=== PATIENT | male | born 1950 | race Caucasian/White ===

== ENCOUNTER 2018-06-05 15:38 | Inpatient (IN) | payer MEDICARE ==
[2018-06-05 16:11] LABS: % BASOPHILS 0.2 % (0.0-2.0); % EOSINOPHILS 1.8 % (0.0-5.0); % LYMPHOCYTES 13.1 % (20.0-50.0); % MONOCYTES 5.4 % (2.0-10.0); % NEUTROPHILS 79.5 % (40.0-80.0); EOSINOPHILE ABSOLUTE 0.1 Th/cmm (0.1-0.4); HEMATOCRIT 42.7 % (41.0-60); HEMOGLOBIN 14.2 gm/dL (12-16); MEAN CELL VOLUME 85.7 fl (80-99); MEAN CORPUSCULAR HEMOGLOBIN 28.4 pg (27.0-31.0); MEAN CORPUSCULAR HGB CONC 33.1 pg (28.0-36.0); MONOCYTE ABSOLUTE 0.4 Th/cmm (0.3-1.0); NEUTROPHILE ABSOLUTE 6.4 Th/cmm (1.8-8.0); PLATELET COUNT 178 Th/cmm (150-400); RED BLOOD COUNT 4.99 Mil/cmm (3.80-5.80); RED CELL DISTRIBUTION WIDTH 14.3 % (11.5-20.0); WHITE BLOOD COUNT 7.9 Th/cmm (4.8-10.8)
[2018-06-05 16:25] LABS: ALB/GLOB RATIO 1.1 (1.0-1.8); ALBUMIN 3.4 gm/dL (4.2-5.5); ANION GAP 11.5 (7.0-16.0); BILIRUBIN,TOTAL 0.4 mg/dL (0.3-1.0); CARBON DIOXIDE 28.8 mEq/L (21.0-31.0); CREATININE - SERUM 1.8 mg/dL (0.7-1.3); GFR AFRICAN-AMERICAN 48.8 ml/min (>90); GFR NON AFRICAN-AMERICAN 40.3 ml/min; MAGNESIUM 2.4 mg/dL (1.9-2.7); PHOSPHOROUS 4.7 mg/dL (2.5-5.0); POTASSIUM SERUM 5.3 mEq/L (3.5-5.1); TOTAL PROTEIN,SERUM 6.5 gm/dL (6.0-8.3)
[2018-06-05] MEDS ORDERED: Lactated Ringer 1,000 ML IV ONE (17:08)
[2018-06-05 17:48] LABS: URINE SOURCE CLEAN C
[2018-06-05 17:51] LABS: URINE BILIRUBIN NEGATIVE (NEGATIVE); URINE BLOOD SMALL (NEGATIVE); URINE GLUCOSE (UA) 100 mg/dL (NEGATIVE); URINE KETONE NEGATIVE (NEGATIVE); URINE LEUKOCYTE ESTERASE NEGATIVE (NEGATIVE); URINE MICROSCOPIC INDICATED? YES; URINE NITRATE NEGATIVE (NEGATIVE); URINE PROTEIN >=300 mg/dL (NEGATIVE); URINE UROBILINOGEN 0.2 E.U./dL (0.2 - 1.0)
[2018-06-05 18:01] LABS: URINE COLOR YELLOW
[2018-06-05 18:02] LABS: URINE CLARITY CLEAR (CLEAR)
[2018-06-05 18:27] LABS: URINE BACTERIA FEW /hpf (NONE SEEN); URINE COARSE GRANULAR CAST 0-2 /lpf (NONE SEEN); URINE EPITHELIAL CELLS FEW /lpf (FEW); URINE WBC 0-2 /hpf (0-5)
[2018-06-05 18:51] LABS: AMPHETAMINE URINE NEGATIVE (NEGATIVE); BARBITURATES URINE NEGATIVE (NEGATIVE); BENZODIAZEPINES QUAL URINE NEGATIVE (NEGATIVE); CANNABINOID THC NEGATIVE (NEGATIVE); COCAINE METABOLITE QUAL URINE NEGATIVE (NEGATIVE); METHADONE URINE NEGATIVE (NEGATIVE); METHAMPHETAMINES QUAL URINE NEGATIVE (NEGATIVE); OPIATES (MORPHINE) QUAL. URINE NEGATIVE (NEGATIVE); PHENCYCLIDINE (PCP) URINE NEGATIVE (NEGATIVE); TRICYCLICS (TCA) QUAL. URINE NEGATIVE (NEGATIVE)
--- NOTE | 2018-06-05 19:56 | ED Physician Chart ---
ED Chief Complaint/HPI - Patient Information Date Seen:: 06/05/18 Time Seen:: 16:10 Chief Complaint:: abnormal labs History of Present Illness:: sent here for abnormal labs Patient has BLE redness present. Allergies:: Allergies Allergy/AdvReac Type Severity Reaction Status Date / Time No Known Allergies Allergy Verified 06/05/18 16:10 Vitals:: Vital Signs - 8 hr 06/05/18 06/05/18 06/05/18 16:10 16:13 16:43 Temp 98.3 F 98.5 F 98.5 F HR 74 76 76 RR 19 18 18 BP 213/102 164/80 164/80 O2 Sat % 96 96 96 Historian:: Patient Review:: Nurse's Note Reviewed, Transfer documents Reviewed ED Review of Systems - Review of Systems General/Constitutional: No fever, No chills, No weight loss, No weakness, No diaphoresis, No edema, No loss of appetite Skin: Other (BLE cellulitis with pustules on the pretibial area of the LLE) Head: No headache, No light-headedness Eyes: No loss of vision, No pain, No diplopia ENT: No earache, No nasal drainage, No sore throat, No tinnitus Neck: No neck pain, No swelling, No thyromegaly, No stiffness, No mass noted Cardio Vascular: No chest pain, No palpitations, No PND, No orthopnea, No edema Pulmonary: No SOB, No cough, No sputum, No wheezing GI: No nausea, No vomiting, No diarrhea, No pain, No melena, No hematochezia, No constipation, No hematemesis G/U: No dysuria, No frequency, No hematuria Musculoskeletal: No bone or joint pain, No back pain, No muscle pain Endocrine: No polyuria, No polydipsia Psychiatric: No prior psych history, No depression, No anxiety, No suicidal ideation Hematopoietic: No bruising, No lymphadenopathy Allergic/Immuno: No urticaria, No angioedema Neurological: No syncope, No focal symptoms, No weakness, No paresthesia, No headache, No seizure, No dizziness, No confusion, No vertigo ED Past Medical History - Past Medical History Obtainable: No Past Medical History: DM, CAD, Other (BPH; renal insufficiency) Surgical History: other (s/p amputation of both great toes) Family Medical History - Family Member Mother History Unknown: Yes ED Physical Exam - Physical Examination General/Constitutional: Awake, Alert Other Gen/Cons comments:: overweight Head: Atraumatic Eyes: Lids, conjuctiva normal, PERRL, EOMI Skin: Nl inspection ENMT: External ears, nose nl Neck: Nontender, No nuchal rigidity, No stridor Respiratory: Nl effort/Exclusion, Clear to Auscultation, No Wheeze/Rhonchi/Rales Cardio Vascular: RRR, No murmur, gallop, rubs, NL S1 S2 GI: No tenderness/rebounding/guarding, No organomegaly, No hernia, Normal BS's, Nondistended, No mass/bruits, No McBurney tenderness : No CVA tenderness Other Extremities comments:: surgical absence of both great toes. BLE cellulitis with pustules on the LLE. 2+ pitting edema. Neuro/Psych: Alert/oriented Misc: Normal back ED Labs/Radiology/EKG Results - Lab Results Results: Laboratory Tests 06/05/18 06/05/18 06/05/18 16:00 16:00 16:00 WBC 7.9 RBC 4.99 Hgb 14.2 Hct 42.7 MCV 85.7 MCH 28.4 MCHC Differential 33.1 RDW 14.3 Plt Count 178 MPV 7.0 Neutrophils % 79.5 Lymphocytes % 13.1 L Monocytes % 5.4 Eosinophils % 1.8 Basophils % 0.2 Sodium 139 Potassium 5.3 H Chloride 104 Carbon Dioxide 28.8 Anion Gap 11.5 BUN 64 H Creatinine 1.8 H Est GFR ( Amer) 48.8 Est GFR (Non-Af Amer) 40.3 BUN/Creatinine Ratio 35.6 Glucose 218 H Calcium 9.0 Phosphorus 4.7 Magnesium 2.4 Total Bilirubin 0.4 AST 12 L ALT 12 Alkaline Phosphatase 93 Ammonia 38 Total Protein 6.5 Albumin 3.4 L Globulin 3.1 Albumin/Globulin Ratio 1.1 Urine Source Urine Color Urine Clarity Urine pH Ur Specific [place] Urine Protein Urine Glucose (UA) Urine Ketones Urine Blood Urine Nitrate Urine Bilirubin Urine Urobilinogen Ur Leukocyte Esterase Urine RBC Urine WBC Ur Epithelial Cells Urine Bacteria Coarse Granular Casts Urine Opiates Screen Urine Methadone Screen Ur Barbiturates Screen Ur Tricyclics Screen Ur Phencyclidine Scrn Amphetamines Screen U Methamphetamines Scrn U Benzodiazepines Scrn U Cocaine Metab Screen U Cannabinoids Screen 06/05/18 06/05/18 17:30 17:30 WBC RBC Hgb Hct MCV MCH MCHC Differential RDW Plt Count MPV Neutrophils % Lymphocytes % Monocytes % Eosinophils % Basophils % Sodium Potassium Chloride Carbon Dioxide Anion Gap BUN Creatinine Est GFR ( Amer) Est GFR (Non-Af Amer) BUN/Creatinine Ratio Glucose Calcium Phosphorus Magnesium Total Bilirubin AST ALT Alkaline Phosphatase Ammonia Total Protein Albumin Globulin Albumin/Globulin Ratio Urine Source CLEAN C Urine Color YELLOW Urine Clarity CLEAR Urine pH 6.0 Ur Specific [place] 1.025 Urine Protein >=300 Urine Glucose (UA) 100 H Urine Ketones NEGATIVE Urine Blood SMALL H Urine Nitrate NEGATIVE Urine Bilirubin NEGATIVE Urine Urobilinogen 0.2 Ur Leukocyte Esterase NEGATIVE Urine RBC 2-5 H Urine WBC 0-2 Ur Epithelial Cells FEW Urine Bacteria FEW Coarse Granular Casts 0-2 H Urine Opiates Screen NEGATIVE Urine Methadone Screen NEGATIVE Ur Barbiturates Screen NEGATIVE Ur Tricyclics Screen NEGATIVE Ur Phencyclidine Scrn NEGATIVE Amphetamines Screen NEGATIVE U Methamphetamines Scrn NEGATIVE U Benzodiazepines Scrn NEGATIVE U Cocaine Metab Screen NEGATIVE U Cannabinoids Screen NEGATIVE ED Assessment - Assessment General Assessment: presented case to Dr. Wells who will admit the patient to med/surg. ED Septic Shock - . Is Septic Shock (SBP<90, OR Lactate>4 mmol\L) present?: No - <6hrs of presentation: Vital Signs: Vital Signs - 8 hr 06/05/18 06/05/18 06/05/18 16:10 16:13 16:43 Temp 98.3 F 98.5 F 98.5 F HR 74 76 76 RR 19 18 18 BP 213/102 164/80 164/80 O2 Sat % 96 96 96 ED Reassessment (Disposition) - Reassessment Reassessment Condition:: Improved - Diagnosis Diagnosis:: BLE cellulitis with pustules on the LLE. Diabetes mellitus. Renal insufficiency. - Patient Disposition Discharge/Transfer:: Acute Care w/in this hosp Admitted to:: Med/Surg Condition at Disposition:: Stable, Improved
[2018-06-05] MEDS ORDERED: Sodium Chloride 0.9% 1,000 ML IV ONE (20:53)
[2018-06-05] MEDS: methylPREDNISolone SS 40 mg Vial IVP SCH (21:49)
[2018-06-05] MEDS: INSULIN ASPART SLIDING SCALE 100 UNITS/ML UNIT SUBQ SCH (21:49)
[2018-06-05] MEDS ORDERED: Piperacillin Sodium/Tazobact 3.375 gm Vial IV ONE (23:44)
[2018-06-06 04:18] VITALS: BP 172/67
[2018-06-06 05:36] LABS: HEMATOCRIT 45.1 % (41.0-60); HEMOGLOBIN 14.7 gm/dL (12-16); LYMPHOCYTE ABSOLUTE 0.6 Th/cmm (1.5-3.0); MEAN CELL VOLUME 85.8 fl (80-99); MEAN CORPUSCULAR HGB CONC 32.6 pg (28.0-36.0); MEAN PLATELET VOLUME 7.6 fl; NEUTROPHILE ABSOLUTE 8.1 Th/cmm (1.8-8.0); PLATELET COUNT 160 Th/cmm (150-400); RED BLOOD COUNT 5.25 Mil/cmm (3.80-5.80); WHITE BLOOD COUNT 8.7 Th/cmm (4.8-10.8)
[2018-06-06 06:01] LABS: ALBUMIN 3.4 gm/dL (4.2-5.5); ANION GAP 10.9 (7.0-16.0); BILIRUBIN,TOTAL 0.5 mg/dL (0.3-1.0); CALCIUM SERUM 9.1 mg/dL (8.6-10.3); CARBON DIOXIDE 26.2 mEq/L (21.0-31.0); CREATININE - SERUM 1.6 mg/dL (0.7-1.3); GFR AFRICAN-AMERICAN 55.9 ml/min (>90); GFR NON AFRICAN-AMERICAN 46.2 ml/min; POTASSIUM SERUM 5.1 mEq/L (3.5-5.1); TOTAL PROTEIN,SERUM 6.8 gm/dL (6.0-8.3)
[2018-06-06] MEDS ORDERED: Piperacillin Sodium/Tazobact 3.375 gm Vial IV ONE (06:08)
[2018-06-06 06:16] LABS: BAND NEUTROPHILE 0 % (0-10); BASOPHIL 0 % (0-3); EOSINOPHIL 1 % (0-5); LYMPHOCYTE 5 % (20-50); MONOCYTE 2 % (2-10); NEUTROPHILS 92 % (40-80)
[2018-06-06] MEDS: INSULIN ASPART SLIDING SCALE 100 UNITS/ML UNIT SUBQ SCH ×4 (08:02→21:07)
[2018-06-06] MEDS: Vancomycin HCl 1.5 GM in Sodium Chloride 0.9% 500 ML IV SCH (08:41)
[2018-06-06] MEDS: methylPREDNISolone SS 40 mg Vial IVP SCH (08:41)
--- NOTE | 2018-06-06 11:10 | General Progress Note ---
Subjective - Review of Systems Service Date: 06/06/18 Subjective: Cellulitis Objective - Results Result Diagrams: 06/06/18 04:43 06/06/18 04:43 Recent Labs: Laboratory Last Values WBC 8.7 Th/cmm (4.8-10.8) 06/06/18 04:43 RBC 5.25 Mil/cmm (3.80-5.80) 06/06/18 04:43 Hgb 14.7 gm/dL (12-16) 06/06/18 04:43 Hct 45.1 % (41.0-60) 06/06/18 04:43 MCV 85.8 fl (80-99) 06/06/18 04:43 MCH 28.0 pg (27.0-31.0) 06/06/18 04:43 MCHC Differential 32.6 pg (28.0-36.0) 06/06/18 04:43 RDW 14.0 % (11.5-20.0) 06/06/18 04:43 Plt Count 160 Th/cmm (150-400) 06/06/18 04:43 MPV 7.6 fl 06/06/18 04:43 Add Manual Diff YES 06/06/18 04:43 Neutrophils % 79.5 % (40.0-80.0) 06/05/18 16:00 Band Neutrophils % 0 % (0-10) 06/06/18 04:43 Lymphocytes % 13.1 % (20.0-50.0) L 06/05/18 16:00 Monocytes % 5.4 % (2.0-10.0) 06/05/18 16:00 Eosinophils % 1.8 % (0.0-5.0) 06/05/18 16:00 Basophils % 0.2 % (0.0-2.0) 06/05/18 16:00 Neutrophils (Manual) 92 % (40-80) H 06/06/18 04:43 Lymphocytes 5 % (20-50) L 06/06/18 04:43 Monocytes 2 % (2-10) 06/06/18 04:43 Eosinophils 1 % (0-5) 06/06/18 04:43 Basophils 0 % (0-3) 06/06/18 04:43 Sodium 137 mEq/L (136-145) 06/06/18 04:43 Potassium 5.1 mEq/L (3.5-5.1) 06/06/18 04:43 Chloride 105 mEq/L (98-107) 06/06/18 04:43 Carbon Dioxide 26.2 mEq/L (21.0-31.0) 06/06/18 04:43 Anion Gap 10.9 (7.0-16.0) 06/06/18 04:43 BUN 58 mg/dL (7-25) H 06/06/18 04:43 Creatinine 1.6 mg/dL (0.7-1.3) H 06/06/18 04:43 Est GFR ( Amer) 55.9 ml/min (>90) 06/06/18 04:43 Est GFR (Non-Af Amer) 46.2 ml/min 06/06/18 04:43 BUN/Creatinine Ratio 36.3 06/06/18 04:43 Glucose 247 mg/dL (70-105) H 06/06/18 04:43 POC Glucose 254 MG/DL (70 - 105) H 06/06/18 06:11 Calcium 9.1 mg/dL (8.6-10.3) 06/06/18 04:43 Phosphorus 4.7 mg/dL (2.5-5.0) 06/05/18 16:00 Magnesium 2.4 mg/dL (1.9-2.7) 06/05/18 16:00 Total Bilirubin 0.5 mg/dL (0.3-1.0) 06/06/18 04:43 AST 12 U/L (13-39) L 06/06/18 04:43 ALT 13 U/L (7-52) 06/06/18 04:43 Alkaline Phosphatase 97 U/L (34-104) 06/06/18 04:43 Ammonia 38 umol/L (16-53) 06/05/18 16:00 Total Protein 6.8 gm/dL (6.0-8.3) 06/06/18 04:43 Albumin 3.4 gm/dL (4.2-5.5) L 06/06/18 04:43 Globulin 3.4 gm/dL 06/06/18 04:43 Albumin/Globulin Ratio 1.0 (1.0-1.8) 06/06/18 04:43 TSH 0.99 uIU/ml (0.34-5.60) 06/06/18 04:43 Urine Source CLEAN C 06/05/18 17:30 Urine Color YELLOW 06/05/18 17:30 Urine Clarity CLEAR (CLEAR) 06/05/18 17:30 Urine pH 6.0 (4.6 - 8.0) 06/05/18 17:30 Ur Specific [place] 1.025 (1.005-1.030) 06/05/18 17:30 Urine Protein >=300 mg/dL (NEGATIVE) 06/05/18 17:30 Urine Glucose (UA) 100 mg/dL (NEGATIVE) H 06/05/18 17:30 Urine Ketones NEGATIVE mg/dL (NEGATIVE) 06/05/18 17:30 Urine Blood SMALL (NEGATIVE) H 06/05/18 17:30 Urine Nitrate NEGATIVE (NEGATIVE) 06/05/18 17:30 Urine Bilirubin NEGATIVE (NEGATIVE) 06/05/18 17:30 Urine Urobilinogen 0.2 E.U./dL (0.2 - 1.0) 06/05/18 17:30 Ur Leukocyte Esterase NEGATIVE (NEGATIVE) 06/05/18 17:30 Urine RBC 2-5 /hpf (0-5) H 06/05/18 17:30 Urine WBC 0-2 /hpf (0-5) 06/05/18 17:30 Ur Epithelial Cells FEW /lpf (FEW) 06/05/18 17:30 Urine Bacteria FEW /hpf (NONE SEEN) 06/05/18 17:30 Coarse Granular Casts 0-2 /lpf (NONE SEEN) H 06/05/18 17:30 Stool Occult Blood POSITIVE (NEGATIVE) H 06/05/18 18:00 Urine Opiates Screen NEGATIVE (NEGATIVE) 06/05/18 17:30 Urine Methadone Screen NEGATIVE (NEGATIVE) 06/05/18 17:30 Ur Barbiturates Screen NEGATIVE (NEGATIVE) 06/05/18 17:30 Ur Tricyclics Screen NEGATIVE (NEGATIVE) 06/05/18 17:30 Ur Phencyclidine Scrn NEGATIVE (NEGATIVE) 06/05/18 17:30 Amphetamines Screen NEGATIVE (NEGATIVE) 06/05/18 17:30 U Methamphetamines Scrn NEGATIVE (NEGATIVE) 06/05/18 17:30 U Benzodiazepines Scrn NEGATIVE (NEGATIVE) 06/05/18 17:30 U Cocaine Metab Screen NEGATIVE (NEGATIVE) 06/05/18 17:30 U Cannabinoids Screen NEGATIVE (NEGATIVE) 06/05/18 17:30 - Physical Exam Vitals and I&O: Vital Signs Temp 97.1 F 06/06/18 07:38 Pulse 75 06/06/18 07:38 Resp 18 06/06/18 07:38 BP 165/68 06/06/18 07:38 Pulse Ox 100 06/06/18 07:38 Intake & Output 06/05/18 06/06/18 06/06/18 18:59 06:59 18:59 Intake Total 1300 Balance 1300 Weight (lbs) 120.202 kg 119.295 kg Intake: Intake, IV Amount 1300 Lactated Ringer 1,000 ml 1000 @ 125 mls/hr IV .Q8H ONE Rx#:[id number] Piperacillin Sodium/ 50 Tazobact 3.375 gm In Sodium Chloride 0.9% 50 ml @ 100 mls/hr IV Q6HR [facility] Rx#:[id number] Vancomycin HCl 1 gm In 250 Sodium Chloride 0.9% 250 ml @ 165 mls/hr IV X1 [facility] Rx#:[id number] Other: Weight Source Estimated Bedscale Active Medications: Current Medications Piperacillin Sod/Tazobactam (Sod 3.375 gm/ Sodium Chloride) 50 mls @ 100 mls/ hr IV Q6HR [facility] Stop: 08/05/18 00:00 Last Admin: 06/06/18 06:12 Dose: 100 mls/hr Vancomycin HCl 1.5 gm/ Sodium (Chloride) 500 mls @ 250 mls/hr IV Q24H [facility] Stop: 08/05/18 08:59 Last Admin: 06/06/18 08:41 Dose: 250 mls/hr Insulin Aspart (Novolog Insulin Sliding Scale) 0 units SUBQ ACHS [facility]; Protocol Stop: 08/04/18 20:59 Last Admin: 06/06/18 08:02 Dose: 7 units Methylprednisolone Sodium Succinate (Solu-Medrol) 62.5 mg IVP Q12HR [facility] Stop: 08/04/18 20:59 Last Admin: 06/06/18 08:41 Dose: 62.5 mg Miscellaneous (Vancomycin Iv Per Pharmacy) 1 ea MC PRN PRN PRN Reason: PROTOCOL Stop: 08/04/18 20:52 General: Alert, Other (confused) HEENT: Atraumatic Neck: Supple Cardiovascular: Regular rate Lungs: Clear to auscultation Abdomen: Bowel sounds, Soft Extremities: Other (Bilateral redness of lower extremities) Neurological: Other (Unstable gait) Skin: Other (Redness of lower extremities) Psych/Mental Status: Other (Patient is confused) Assessment/Plan - Problem List Patient Problems: All Active Problems WEAKNESS WITH ELEVATED NH3 (Acute) - Assessment Assessment: Patient is awake, alert, confused. Dx : Bilateral cellulites, DM, CHF, CAD, PVD , COPD, Obesity. - Plan Plan: Patient is awake, confused, not oriented. He is in IV NS, IV AB, and SNF meds. Will continue to monitor.
[2018-06-06] MEDS ORDERED: Docusate Sodium/Senna Tab PO PRN (11:14)
--- NOTE | 2018-06-06 11:27 | History and Physical ---
History of Present Illness - HPI Chief Complaint: Cellulitis HPI: Patient was send from SNF due to Bilateral cellulitis. 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: Report: No Pertinent Hx GI: Report: No Pertinent Hx Psych: Report: Anxiety, Depression Musculoskeletal: Report: Weakness Rheumatologic: Report: No pertinent Hx Infectious Disease: Report: No Pertinent Hx Renal/: Report: Chronic Renal Insuff Endocrine: Report: Diabetes Dermatology: Report: Cellulitis - Past Surgical History Past Surgical History: No pertinent Hx Family Medical History - Family Member Mother History Unknown: Yes Father History Unknown: Yes Ethnicity: Non- Living Status: Hx Family Diabetes: Yes Social History Smoke: No Alcohol: None Drugs: None Lives: Jail Domestic Violence: Negative - Medications Home Medications: Home Medication Medication Instructions Recorded Type Acetaminophen [Tylenol] 650 mg PO Q4H PRN 06/05/18 History Amlodipine Besylate 5 mg PO DAILY 06/05/18 History Carvedilol [Coreg] 25 mg PO BID 06/05/18 History Dextrose 10% 250 ml IV PRN PRN 06/05/18 History Dextrose [Glucose Gel] 15 gm PO PRN PRN 06/05/18 History Ferrous Sulfate 325 mg PO BID 06/05/18 History Finasteride [Proscar*] 5 mg PO DAILY 06/05/18 History Furosemide [Lasix] 40 mg PO DAILY 06/05/18 History Glucagon,Human Recombinant 1 mg IJ PRN PRN 06/05/18 History [Glucagon Emergency Kit] Hydrochlorothiazide [Hctz*] 25 mg PO DAILY 06/05/18 History Insulin Aspart, Recombinant 0 unit SUBQ AC 06/05/18 History [NovoLOG] Insulin Aspart, Recombinant 0 unit SUBQ HS 06/05/18 History [NovoLOG] Isosorbide Mononitrate 20 mg PO BID 06/05/18 History Multivitamin with Minerals 1 each PO DAILY 06/05/18 History [Myvitalife] Optinex 1 tab PO BID 06/05/18 History Sennosides/Docusate Sodium 1 each PO HS PRN 06/05/18 History [Senna-S Laxative Tablet] Tamsulosin [Flomax] 0.4 mg PO DAILY 06/05/18 History - Allergies Allergies/Adverse Reactions: Allergies Allergy/AdvReac Type Severity Reaction Status Date / Time No Known Allergies Allergy Verified 06/05/18 16:10 Review of Systems - Review of Systems Constitutional: Report: Weakness Eyes: Report: No Significant ENT: Report: No Significant Respiratory: Report: No Significant Cardiovascular: Report: No Significant Gastrointestinal: Report: No Significant Genitourinary: Report: No Significant Musculoskeletal: Report: No Significant Skin: Report: Rash Neurological: Report: Weakness, Incoordination, Confusion Physical Exam - Physical Exam HEENT: Report: Ears Nose Throat within normal limits Neck: Report: Within normal limits Cardiovascular Systems: Report: Regular, Rate and Rhythm Respiratory: Report: Breath Sounds are within normal limits Abdomen: Report: Non-tender to palpation Back: Report: Inspection of back is within normal limits. Extremities: Report: Other (Rednes of both lower extremities.) Skin: Report: No Rashes noted of the skin Neuro/Psych: Report: Disoriented to name time or place, Depressed affect - Lab Results All Lab Results last 24 hours: Laboratory Results - last 24 hr 06/05/18 06/05/18 06/05/18 16:00 16:00 16:00 WBC 7.9 RBC 4.99 Hgb 14.2 Hct 42.7 MCV 85.7 MCH 28.4 MCHC Differential 33.1 RDW 14.3 Plt Count 178 MPV 7.0 Add Manual Diff Neutrophils % 79.5 Band Neutrophils % Lymphocytes % 13.1 L Monocytes % 5.4 Eosinophils % 1.8 Basophils % 0.2 Neutrophils (Manual) Lymphocytes Monocytes Eosinophils Basophils Sodium 139 Potassium 5.3 H Chloride 104 Carbon Dioxide 28.8 Anion Gap 11.5 BUN 64 H Creatinine 1.8 H Est GFR ( Amer) 48.8 Est GFR (Non-Af Amer) 40.3 BUN/Creatinine Ratio 35.6 Glucose 218 H POC Glucose Calcium 9.0 Phosphorus 4.7 Magnesium 2.4 Total Bilirubin 0.4 AST 12 L ALT 12 Alkaline Phosphatase 93 Ammonia 38 Total Protein 6.5 Albumin 3.4 L Globulin 3.1 Albumin/Globulin Ratio 1.1 TSH Urine Source Urine Color Urine Clarity Urine pH Ur Specific [place] Urine Protein Urine Glucose (UA) Urine Ketones Urine Blood Urine Nitrate Urine Bilirubin Urine Urobilinogen Ur Leukocyte Esterase Urine RBC Urine WBC Ur Epithelial Cells Urine Bacteria Coarse Granular Casts Stool Occult Blood Urine Opiates Screen Urine Methadone Screen Ur Barbiturates Screen Ur Tricyclics Screen Ur Phencyclidine Scrn Amphetamines Screen U Methamphetamines Scrn U Benzodiazepines Scrn U Cocaine Metab Screen U Cannabinoids Screen 06/05/18 06/05/18 06/05/18 17:30 17:30 18:00 WBC RBC Hgb Hct MCV MCH MCHC Differential RDW Plt Count MPV Add Manual Diff Neutrophils % Band Neutrophils % Lymphocytes % Monocytes % Eosinophils % Basophils % Neutrophils (Manual) Lymphocytes Monocytes Eosinophils Basophils Sodium Potassium Chloride Carbon Dioxide Anion Gap BUN Creatinine Est GFR ( Amer) Est GFR (Non-Af Amer) BUN/Creatinine Ratio Glucose POC Glucose Calcium Phosphorus Magnesium Total Bilirubin AST ALT Alkaline Phosphatase Ammonia Total Protein Albumin Globulin Albumin/Globulin Ratio TSH Urine Source CLEAN C Urine Color YELLOW Urine Clarity CLEAR Urine pH 6.0 Ur Specific [place] 1.025 Urine Protein >=300 Urine Glucose (UA) 100 H Urine Ketones NEGATIVE Urine Blood SMALL H Urine Nitrate NEGATIVE Urine Bilirubin NEGATIVE Urine Urobilinogen 0.2 Ur Leukocyte Esterase NEGATIVE Urine RBC 2-5 H Urine WBC 0-2 Ur Epithelial Cells FEW Urine Bacteria FEW Coarse Granular Casts 0-2 H Stool Occult Blood POSITIVE H Urine Opiates Screen NEGATIVE Urine Methadone Screen NEGATIVE Ur Barbiturates Screen NEGATIVE Ur Tricyclics Screen NEGATIVE Ur Phencyclidine Scrn NEGATIVE Amphetamines Screen NEGATIVE U Methamphetamines Scrn NEGATIVE U Benzodiazepines Scrn NEGATIVE U Cocaine Metab Screen NEGATIVE U Cannabinoids Screen NEGATIVE 06/06/18 06/06/18 06/06/18 04:43 04:43 04:43 WBC 8.7 RBC 5.25 Hgb 14.7 Hct 45.1 MCV 85.8 MCH 28.0 MCHC Differential 32.6 RDW 14.0 Plt Count 160 MPV 7.6 Add Manual Diff YES Neutrophils % Band Neutrophils % 0 Lymphocytes % Monocytes % Eosinophils % Basophils % Neutrophils (Manual) 92 H Lymphocytes 5 L Monocytes 2 Eosinophils 1 Basophils 0 Sodium 137 Potassium 5.1 Chloride 105 Carbon Dioxide 26.2 Anion Gap 10.9 BUN 58 H Creatinine 1.6 H Est GFR ( Amer) 55.9 Est GFR (Non-Af Amer) 46.2 BUN/Creatinine Ratio 36.3 Glucose 247 H POC Glucose Calcium 9.1 Phosphorus Magnesium Total Bilirubin 0.5 AST 12 L ALT 13 Alkaline Phosphatase 97 Ammonia Total Protein 6.8 Albumin 3.4 L Globulin 3.4 Albumin/Globulin Ratio 1.0 TSH 0.99 Urine Source Urine Color Urine Clarity Urine pH Ur Specific [place] Urine Protein Urine Glucose (UA) Urine Ketones Urine Blood Urine Nitrate Urine Bilirubin Urine Urobilinogen Ur Leukocyte Esterase Urine RBC Urine WBC Ur Epithelial Cells Urine Bacteria Coarse Granular Casts Stool Occult Blood Urine Opiates Screen Urine Methadone Screen Ur Barbiturates Screen Ur Tricyclics Screen Ur Phencyclidine Scrn Amphetamines Screen U Methamphetamines Scrn U Benzodiazepines Scrn U Cocaine Metab Screen U Cannabinoids Screen 06/06/18 06/06/18 06:11 11:12 WBC RBC Hgb Hct MCV MCH MCHC Differential RDW Plt Count MPV Add Manual Diff Neutrophils % Band Neutrophils % Lymphocytes % Monocytes % Eosinophils % Basophils % Neutrophils (Manual) Lymphocytes Monocytes Eosinophils Basophils Sodium Potassium Chloride Carbon Dioxide Anion Gap BUN Creatinine Est GFR ( Amer) Est GFR (Non-Af Amer) BUN/Creatinine Ratio Glucose POC Glucose 254 H 293 H Calcium Phosphorus Magnesium Total Bilirubin AST ALT Alkaline Phosphatase Ammonia Total Protein Albumin Globulin Albumin/Globulin Ratio TSH Urine Source Urine Color Urine Clarity Urine pH Ur Specific [place] Urine Protein Urine Glucose (UA) Urine Ketones Urine Blood Urine Nitrate Urine Bilirubin Urine Urobilinogen Ur Leukocyte Esterase Urine RBC Urine WBC Ur Epithelial Cells Urine Bacteria Coarse Granular Casts Stool Occult Blood Urine Opiates Screen Urine Methadone Screen Ur Barbiturates Screen Ur Tricyclics Screen Ur Phencyclidine Scrn Amphetamines Screen U Methamphetamines Scrn U Benzodiazepines Scrn U Cocaine Metab Screen U Cannabinoids Screen - Assessment Assessment: Patient is awake, alert, confused. Dx : Bilateral cellulites, DM, CHF, CAD, PVD , COPD, Obesity. - Plan Plan: Patient is awake, confused, not oriented. He is in IV NS, IV AB, and SNF meds. Will continue to monitor.
[2018-06-06] MEDS: Multivitamin w/ Minerals Tab PO SCH (12:12)
--- NOTE | 2018-06-06 13:13 | Consultation ---
DATE OF CONSULTATION: 06/06/2018 PSYCHIATRIC CONSULTATION PHYSICIAN REQUESTING CONSULTATION: Dr. Ken Wells. REASON FOR CONSULTATION: Possible depression. HISTORY OF PRESENT ILLNESS: This patient is a 67-year-old male, resident of [facility] in [place]. Information obtained by directly interviewing the patient as well as reviewing the admission papers. The patient has been admitted for cellulitis of bilateral lower extremities and a psychiatric consultation is called to address the issue of the depression. Chart is reviewed. The patient is interviewed. During the interview, the patient is stating that overall he is looking for his pair of shoes and then he states that he wants to head to [place] and to be a psychiatrist. The patient is not making much sense, but the patient is stating that he is trying to cope with the diabetes. 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 PAST PSYCHIATRIC HISTORY: The patient is stating that he never had a reason to see a psychiatrist. MEDICAL HISTORY: The patient is reporting that he has been fighting with the diabetes and hypertension for a while. His father was also a diabetic. SOCIAL HISTORY: The patient is a resident of the [facility] in [place] and the patient is stating that he has been there for more than 4 years. SUBSTANCE ABUSE HISTORY: The patient denies use of any drugs or alcohol. LEGAL PROBLEMS: None at this time. STRENGTHS AND ASSETS: The patient is motivated. MENTAL EXAMINATION: The patient is a 67-year-old moderately obese, superficially cooperative. Eye contact is fair. Mood is noted to be irritable. Affect is constricted. The patient is stating that he is trying to cope with the depression the best he could. The patient's coping skills at this time are noted to be poor at this time. The patient is not suicidal or homicidal. The patient denies any auditory hallucinations, but element of grandiosity is noted. The patient is alert and oriented x 3. No cognitive deficits are noted. DIAGNOSTIC IMPRESSION: Depressive disorder, not otherwise specified. PLAN: To continue the patient with the supportive therapy and encouraged the patient to verbalize the concerns rather than to act out. The patient does not need any psychiatric intervention and antidepressant medications at this time. We will follow the patient up and then decide the need for the medication. Thank you, Dr. Wells for allowing me to participate in the care of the patient. JOB# [id number]
[2018-06-07] MEDS ORDERED: Piperacillin Sodium/Tazobact 3.375 gm Vial IV ONE (02:05)
--- NOTE | 2018-06-07 02:22 | Consultation ---
DATE OF CONSULTATION: AGE: 67 years. SEX: Male. RACE: . HISTORY OF PRESENT ILLNESS: The patient is being admitted because of the cellulitis on the left leg and also swelling of both lower extremities and possibility of fluid overload. In addition to that, the patient does have morbid obesity for quite some time. The patient's height is only 5 feet 8 inches and he weighs 263 pounds. The patient also has other problems which include but not limited to, but I was asked to evaluate his kidney function and problems related to that. On direct questioning, the patient has stated that he has had diabetes for 10+ years. Also, the patient had hypertension for 1-1/2 years. In addition, the patient also has significant obesity, which he knows about and he has not been able to reduce it. The patient apparently had been seen by urologist because the patient is on Proscar, Flomax and other medications and I think he might have been, but he does not know when and obviously he is being treated for enlarged prostate. The patient must have had this renal dysfunction probably secondary to enlargement of prostate could be due to diabetic nephropathy or hypertensive atherosclerosis and nephrosclerosis. The patient does have findings and signs on clinical examination and testing also. On further examination, the patient is conscious, cooperative, alert. The patient's jugular venous pressure is not raised. Chest examination reveals good air entry. The patient has never been a smoker. Denies any significant drinking. Abdomen is rather very large and protuberant. No masses could be felt. Ascites could not be ascertained on clinical examination. The patient has 1+ to 2+ tight edema in both lower extremities. The patient also has cellulitis. The patient is able to mobilize both extremities and sort of denies any pain. LABORATORY DATA: Biochemical data briefly reveals sodium 137, potassium 5.1, chloride 105, CO2 content 26.2, creatinine 1.6, hemoglobin 14.7 grams percent, WBC count 8700, neutrophils 79%. Calcium 9.1, phosphorus not available, magnesium not available. Liver enzymes are essentially normal. Albumin 3.4 and globulin 3.4 also. Urinalysis reveals specific gravity of 1025, urine protein more than 300 mg percent, negative for leukocyte esterase and urine nitrite. The patient is stool is positive for occult blood, may need to be repeated, although the patient is not anemic at the present time. PLAN: Considering all these things would suggest strongly, the patient should have ultrasound of the abdomen and pelvis to evaluate the kidneys and bladder along with probably prostate. Also had a hemoglobin A1c and better diabetic control. The patient is already on antibiotics and need to keep elevation of both lower extremities. He would be followed up with the chemistries and other studies including blood glucose and see what happens and would modify the treatment accordingly. JOB# [id number]
[2018-06-07 05:52] LABS: % BASOPHILS 0.2 % (0.0-2.0); % EOSINOPHILS 0.8 % (0.0-5.0); % LYMPHOCYTES 5.9 % (20.0-50.0); % MONOCYTES 4.4 % (2.0-10.0); % NEUTROPHILS 88.7 % (40.0-80.0); EOSINOPHILE ABSOLUTE 0.1 Th/cmm (0.1-0.4); HEMATOCRIT 42.4 % (41.0-60); HEMOGLOBIN 14.1 gm/dL (12-16); LYMPHOCYTE ABSOLUTE 0.9 Th/cmm (1.5-3.0); MEAN CELL VOLUME 86.2 fl (80-99); MEAN CORPUSCULAR HEMOGLOBIN 28.6 pg (27.0-31.0); MEAN CORPUSCULAR HGB CONC 33.2 pg (28.0-36.0); MEAN PLATELET VOLUME 7.5 fl; MONOCYTE ABSOLUTE 0.6 Th/cmm (0.3-1.0); NEUTROPHILE ABSOLUTE 13.1 Th/cmm (1.8-8.0); PLATELET COUNT 173 Th/cmm (150-400); RED BLOOD COUNT 4.92 Mil/cmm (3.80-5.80); RED CELL DISTRIBUTION WIDTH 14.5 % (11.5-20.0); WHITE BLOOD COUNT 14.7 Th/cmm (4.8-10.8)
[2018-06-07 06:31] LABS: BAND NEUTROPHILE 0 % (0-10); BASOPHIL 0 % (0-3); EOSINOPHIL 2 % (0-5); LYMPHOCYTE 6 % (20-50); MONOCYTE 4 % (2-10); NEUTROPHILS 88 % (40-80)
[2018-06-07 06:51] LABS: ANION GAP 13.8 (7.0-16.0); CALCIUM SERUM 8.8 mg/dL (8.6-10.3); CARBON DIOXIDE 23.7 mEq/L (21.0-31.0); CREATININE - SERUM 1.8 mg/dL (0.7-1.3); GFR AFRICAN-AMERICAN 48.8 ml/min (>90); GFR NON AFRICAN-AMERICAN 40.3 ml/min; POTASSIUM SERUM 4.5 mEq/L (3.5-5.1)
[2018-06-07] MEDS: INSULIN ASPART SLIDING SCALE 100 UNITS/ML UNIT SUBQ SCH ×4 (08:38→21:57)
--- NOTE | 2018-06-07 08:54 | Consultation ---
DATE OF CONSULTATION: 06/06/2018 INFECTIOUS DISEASE CONSULTATION REFERRING PHYSICIAN: Ken Wells M.D. REASON FOR CONSULTATION: Cellulitis of both legs. HISTORY OF PRESENT ILLNESS: The patient is 67-year-old female with a past medical history of coronary artery disease, CHF, hypertension, brought in from a nursing facility for bilateral swelling and redness. On initial evaluation, the patient's temperature was 98.3 degree Fahrenheit and WBC count was 7900. As patient has swelling and wound on both lower extremities, the patient was started on vancomycin and Zosyn. ID consult was called for the antibiotic management. PAST MEDICAL HISTORY: The patient has a history of diabetes mellitus type 2, obesity for heart disease, CHF, and hypertension. SOCIAL HISTORY: The patient is a intermediate. No history of smoking, alcohol or drug use. MEDICATIONS: Per medication reconciliation sheet. Antibiotic shore, the patient received vancomycin and Zosyn. FAMILY HISTORY: Unknown. REVIEW OF SYSTEMS: GENERAL: The patient has no fever, no chills. The patient has generalized weakness. HEENT: No diplopia, no photophobia, no sore throat. RESPIRATORY: No cough, no shortness of breath. CARDIOVASCULAR: No chest pain, no palpitations. GASTROINTESTINAL: No nausea, no vomiting, no diarrhea, no constipation. GENITOURINARY: No dysuria. MUSCULOSKELETAL: The patient has swelling and redness of both lower extremities with ulcers . NEUROLOGIC: No headache, no dizziness, no focal weakness. PHYSICAL EXAMINATION: VITAL SIGNS: Shows temperature is 98.4 degrees Fahrenheit, pulse 74, respiration 19, blood pressure 140/76. GENERAL: The patient is comfortable lying in the bed, not in acute distress. HEENT: Head is normocephalic, atraumatic. Oral cavity moist, pink tongue. NECK: Supple, no JVD, no carotid bruit. Trachea in midline. CHEST: Bilateral breath sounds. No crackles or wheezing. HEART: S1, S2 within normal limits. Regular rhythm. No murmur, no gallop. ABDOMEN: Soft, nontender, nondistended. Bowel sounds present. EXTREMITIES: No cyanosis and no clubbing. The patient has swelling of both legs. There is redness of both lower extremities. NEUROLOGICAL: Alert, awake and oriented x 3. LABORATORY DATA: Current lab shows WBC count is 8700, hemoglobin 14.7, hematocrit 45.1, platelets are 160,000, neutrophil is 92%. Sodium 137, potassium 5.1, chloride 105, bicarbonate is 26, BUN is 58, creatinine 1.6, glucose is 247. Stool for occult blood is positive. Blood culture, no growth and left leg wound grew Staph aureus. IMPRESSION: 1. Bilateral leg cellulitis, right lower leg and left lower leg cellulitis. 2. Staph aureus infection. 3. Diabetes mellitus type 2. 4. Obesity. 5. Chronic kidney disease, stage 2. 6. Coronary artery disease. 7. Peripheral arterial disease. RECOMMENDATIONS AND PLAN: Continue vancomycin and discontinue Zosyn. Depending on wound culture report, we will define further therapy. [facility]# [id number]
[2018-06-07] MEDS: Multivitamin w/ Minerals Tab PO SCH (09:07)
[2018-06-07] MEDS: Vancomycin HCl 1.5 GM in Sodium Chloride 0.9% 500 ML IV SCH (09:27)
--- NOTE | 2018-06-07 11:46 | General Progress Note ---
Subjective - Review of Systems Service Date: 06/08/18 Subjective: I am fine Objective - Results Result Diagrams: 06/07/18 05:03 06/07/18 05:03 Recent Labs: Laboratory Last Values WBC 14.7 Th/cmm (4.8-10.8) H 06/07/18 05:03 RBC 4.92 Mil/cmm (3.80-5.80) 06/07/18 05:03 Hgb 14.1 gm/dL (12-16) 06/07/18 05:03 Hct 42.4 % (41.0-60) 06/07/18 05:03 MCV 86.2 fl (80-99) 06/07/18 05:03 MCH 28.6 pg (27.0-31.0) 06/07/18 05:03 MCHC Differential 33.2 pg (28.0-36.0) 06/07/18 05:03 RDW 14.5 % (11.5-20.0) 06/07/18 05:03 Plt Count 173 Th/cmm (150-400) 06/07/18 05:03 MPV 7.5 fl 06/07/18 05:03 Add Manual Diff YES 06/06/18 04:43 Neutrophils % 88.7 % (40.0-80.0) H 06/07/18 05:03 Band Neutrophils % 0 % (0-10) 06/07/18 05:03 Lymphocytes % 5.9 % (20.0-50.0) L 06/07/18 05:03 Monocytes % 4.4 % (2.0-10.0) 06/07/18 05:03 Eosinophils % 0.8 % (0.0-5.0) 06/07/18 05:03 Basophils % 0.2 % (0.0-2.0) 06/07/18 05:03 Neutrophils (Manual) 88 % (40-80) H 06/07/18 05:03 Lymphocytes 6 % (20-50) L 06/07/18 05:03 Monocytes 4 % (2-10) 06/07/18 05:03 Eosinophils 2 % (0-5) 06/07/18 05:03 Basophils 0 % (0-3) 06/07/18 05:03 Sodium 136 mEq/L (136-145) 06/07/18 05:03 Potassium 4.5 mEq/L (3.5-5.1) 06/07/18 05:03 Chloride 103 mEq/L (98-107) 06/07/18 05:03 Carbon Dioxide 23.7 mEq/L (21.0-31.0) 06/07/18 05:03 Anion Gap 13.8 (7.0-16.0) 06/07/18 05:03 BUN 67 mg/dL (7-25) H 06/07/18 05:03 Creatinine 1.8 mg/dL (0.7-1.3) H 06/07/18 05:03 Est GFR ( Amer) 48.8 ml/min (>90) 06/07/18 05:03 Est GFR (Non-Af Amer) 40.3 ml/min 06/07/18 05:03 BUN/Creatinine Ratio 37.2 06/07/18 05:03 Glucose 198 mg/dL (70-105) H 06/07/18 05:03 POC Glucose 267 MG/DL (70 - 105) H 06/07/18 11:29 Calcium 8.8 mg/dL (8.6-10.3) 06/07/18 05:03 Phosphorus 4.7 mg/dL (2.5-5.0) 06/05/18 16:00 Magnesium 2.4 mg/dL (1.9-2.7) 06/05/18 16:00 Total Bilirubin 0.5 mg/dL (0.3-1.0) 06/06/18 04:43 AST 12 U/L (13-39) L 06/06/18 04:43 ALT 13 U/L (7-52) 06/06/18 04:43 Alkaline Phosphatase 97 U/L (34-104) 06/06/18 04:43 Ammonia 38 umol/L (16-53) 06/05/18 16:00 Total Protein 6.8 gm/dL (6.0-8.3) 06/06/18 04:43 Albumin 3.4 gm/dL (4.2-5.5) L 06/06/18 04:43 Globulin 3.4 gm/dL 06/06/18 04:43 Albumin/Globulin Ratio 1.0 (1.0-1.8) 06/06/18 04:43 TSH 0.99 uIU/ml (0.34-5.60) 06/06/18 04:43 Urine Source CLEAN C 06/05/18 17:30 Urine Color YELLOW 06/05/18 17:30 Urine Clarity CLEAR (CLEAR) 06/05/18 17:30 Urine pH 6.0 (4.6 - 8.0) 06/05/18 17:30 Ur Specific [place] 1.025 (1.005-1.030) 06/05/18 17:30 Urine Protein >=300 mg/dL (NEGATIVE) 06/05/18 17:30 Urine Glucose (UA) 100 mg/dL (NEGATIVE) H 06/05/18 17:30 Urine Ketones NEGATIVE mg/dL (NEGATIVE) 06/05/18 17:30 Urine Blood SMALL (NEGATIVE) H 06/05/18 17:30 Urine Nitrate NEGATIVE (NEGATIVE) 06/05/18 17:30 Urine Bilirubin NEGATIVE (NEGATIVE) 06/05/18 17:30 Urine Urobilinogen 0.2 E.U./dL (0.2 - 1.0) 06/05/18 17:30 Ur Leukocyte Esterase NEGATIVE (NEGATIVE) 06/05/18 17:30 Urine RBC 2-5 /hpf (0-5) H 06/05/18 17:30 Urine WBC 0-2 /hpf (0-5) 06/05/18 17:30 Ur Epithelial Cells FEW /lpf (FEW) 06/05/18 17:30 Urine Bacteria FEW /hpf (NONE SEEN) 06/05/18 17:30 Coarse Granular Casts 0-2 /lpf (NONE SEEN) H 06/05/18 17:30 Stool Occult Blood POSITIVE (NEGATIVE) H 06/05/18 18:00 Urine Opiates Screen NEGATIVE (NEGATIVE) 06/05/18 17:30 Urine Methadone Screen NEGATIVE (NEGATIVE) 06/05/18 17:30 Ur Barbiturates Screen NEGATIVE (NEGATIVE) 06/05/18 17:30 Ur Tricyclics Screen NEGATIVE (NEGATIVE) 06/05/18 17:30 Ur Phencyclidine Scrn NEGATIVE (NEGATIVE) 06/05/18 17:30 Amphetamines Screen NEGATIVE (NEGATIVE) 06/05/18 17:30 U Methamphetamines Scrn NEGATIVE (NEGATIVE) 06/05/18 17:30 U Benzodiazepines Scrn NEGATIVE (NEGATIVE) 06/05/18 17:30 U Cocaine Metab Screen NEGATIVE (NEGATIVE) 06/05/18 17:30 U Cannabinoids Screen NEGATIVE (NEGATIVE) 06/05/18 17:30 - Physical Exam Vitals and I&O: Vital Signs Temp 97.3 F 06/07/18 04:00 Pulse 69 06/07/18 09:19 Resp 18 06/07/18 08:00 BP 129/66 06/07/18 09:20 Pulse Ox 97 06/07/18 04:00 Intake & Output 06/06/18 06/07/18 06/07/18 18:59 06:59 18:59 Intake Total 1050 50 Balance 1050 50 Weight (lbs) 121.472 kg 121.109 kg Intake: Intake, IV Amount 550 50 Piperacillin Sodium/ 50 50 Tazobact 3.375 gm In Sodium Chloride 0.9% 50 ml @ 100 mls/hr IV Q6HR [facility] Rx#:[id number] Vancomycin HCl 1.5 gm In 500 Sodium Chloride 0.9% 500 ml @ 250 mls/hr IV Q24H [facility] Rx#:[id number] Oral 500 Other: Weight Source Bedscale Bedscale Active Medications: Current Medications Acetaminophen (Tylenol) 650 mg PO Q4H PRN PRN Reason: PAIN Amlodipine Besylate (Norvasc) 5 mg PO DAILY [facility] Stop: 08/05/18 11:14 Last Admin: 06/07/18 09:18 Dose: Not Given Carvedilol (Coreg) 25 mg PO BID [facility] Stop: 08/05/18 16:59 Last Admin: 06/07/18 09:19 Dose: Not Given Finasteride (Proscar) 5 mg PO DAILY [facility]; Protocol Stop: 08/05/18 11:14 Last Admin: 06/07/18 09:08 Dose: 5 mg Furosemide (Lasix) 40 mg PO DAILY [facility] Stop: 08/06/18 08:59 Last Admin: 06/07/18 09:10 Dose: 40 mg Hydrochlorothiazide (Hctz) 25 mg PO DAILY [facility] Stop: 08/05/18 11:14 Last Admin: 06/07/18 09:20 Dose: Not Given Vancomycin HCl 1.5 gm/ Sodium (Chloride) 500 mls @ 250 mls/hr IV Q24H [facility] Stop: 08/05/18 08:59 Last Admin: 06/07/18 09:27 Dose: 250 mls/hr Insulin Aspart (Novolog Insulin Sliding Scale) 0 units SUBQ ACHS [facility]; Protocol Stop: 08/04/18 20:59 Last Admin: 06/07/18 08:38 Dose: 3 units Isosorbide Dinitrate (Isordil) 20 mg PO BID [facility] Stop: 08/05/18 16:59 Last Admin: 06/07/18 09:11 Dose: 20 mg Miscellaneous (Vancomycin Iv Per Pharmacy) 1 ea MC PRN PRN PRN Reason: PROTOCOL Stop: 08/04/18 20:52 Sennosides (Senna Plus 50 Mg-8.6 Mg) 1 tab PO HS PRN PRN Reason: Constipation Stop: 08/05/18 11:13 Tamsulosin HCl (Flomax) 0.4 mg PO DAILY [facility] Stop: 08/06/18 08:59 Last Admin: 06/07/18 09:12 Dose: 0.4 mg General: Alert, Other (confused) HEENT: Atraumatic Neck: Supple Cardiovascular: Regular rate Lungs: Clear to auscultation Abdomen: Bowel sounds, Soft Extremities: Other (Bilateral redness of lower extremities) Neurological: Other (Unstable gait) Skin: Other (Redness of lower extremities) Psych/Mental Status: Other (Patient is confused) Assessment/Plan - Problem List Patient Problems: All Active Problems WEAKNESS WITH ELEVATED NH3 (Acute) - Assessment Assessment: Patient is awake, alert, confused. Culture was positive for MRSA, sensible to Vanco. Dx : Bilateral cellulites, DM, CHF, CAD, PVD, COPD, Obesity. - Plan Plan: Patient is awake, confused, not oriented. He is in IV NS, IV AB, and SNF meds. Will continue to monitor. Nutritional Asmnt/Malnutr-PDOC - Dietary Evaluation Malnutrition Findings (Please click <Entered> for more info): Nutritional Asmnt/Malnutrition Start: 06/06/18 12: 07 Text: Status: Complete Freq: Protocol: Document 06/06/18 12:08 ALICIA (Rec: 06/06/18 12:38 [email or web address]) Nutritional Asmnt/Malnutrition Patient General Information Nutritional Screening High Risk Diagnosis Cellulitis BLE Pertinent Medical Hx/Surgical Hx CAD, CHF, HTN, anxiety, depression, weakness, chronic renal insufficiency, diabetes, cellulitis Subjective Information Patient was admitted from [facility]. Patient states he has a good appetite, no problems chewing or swallowing, and is tolerating current diet. He likes coffee, bananas, eggs, oatmeal, teixeira, milk, sugar free ice cream and likes to have an evening snack. He states BG is usually controlled. Current Diet Order/ Nutrition Support 60 gm CCHO Patient / S.O Not Indicated Pertinent Medications lasix, Novolog, abx Pertinent Labs (06/06) BUN 58, Cr 1.6, glucose 218-293, albumin 3.4 Nutritional Hx/Data Height 1.73 m Height (Calculated Centimeters) 172.7 Current Weight (lbs) 119.295 kg Weight (Calculated Kilograms) 119.3 Weight (Calculated Grams) 681029.8 [place] Body Weight 154 % [place] Body Weight 170 Body Mass Index (BMI) 39.9 Recent Weight Change No Weight Status Obese GI Symptoms GI Symptoms None Last BM none noted in EMR Difficult in: None Food Allergies No Cultural/Ethnic/Jew Belief none indicated Usual diet at home unknown Skin Integrity/Comment: Lanre 19, Reddened lower legs (cellulitis) Estimated Nutritional Goals BEE in Kcals: Adj wt of IBW Calories/Kcals/Kg 25-30 kcal/kg (using Adj wt 82 .3kg) Kcals Calculated ~4273-2879 kcal/day Protein: Adj wt of IBW Protein g/k-1.2 gm/kg Protein Calculated ~80-100 gm/day Fluid: ml ~4168-7222 ml/day (1 ml/kcal) Nutritional Problem 1. Problem Problem Altered nutrition related lab values related to Etiology uncontrolled hyperglycemia Signs/Symptoms: aeb glucose 218-293 Intervention/Recommendation Comments 1. Continue 60 gm CCHO diet as tolerated by patient. Educated patient on DM Diet; pt verbalized understanding. 2. MD to continue to modify insulin regimen for optimal glycemic control. 3. F/U in 3-5 days as MR (-) Expected Outcomes/Goals Expected Outcomes/Goals Oral intake >75% of meals, weight stable or trend toward IBW, glucose normalizes
--- NOTE | 2018-06-07 21:52 | Infectious Disease Prog Note ---
Infectious Disease Subjective - Review of Systems Service Date: 06/07/18 Events since last encounter: none Subjective: No new change, no fever. Infectious Disease Objective - Results Result Diagrams: 06/07/18 05:03 06/07/18 05:03 Recent Labs: Laboratory Last Values WBC 14.7 Th/cmm (4.8-10.8) H 06/07/18 05:03 RBC 4.92 Mil/cmm (3.80-5.80) 06/07/18 05:03 Hgb 14.1 gm/dL (12-16) 06/07/18 05:03 Hct 42.4 % (41.0-60) 06/07/18 05:03 MCV 86.2 fl (80-99) 06/07/18 05:03 MCH 28.6 pg (27.0-31.0) 06/07/18 05:03 MCHC Differential 33.2 pg (28.0-36.0) 06/07/18 05:03 RDW 14.5 % (11.5-20.0) 06/07/18 05:03 Plt Count 173 Th/cmm (150-400) 06/07/18 05:03 MPV 7.5 fl 06/07/18 05:03 Add Manual Diff YES 06/06/18 04:43 Neutrophils % 88.7 % (40.0-80.0) H 06/07/18 05:03 Band Neutrophils % 0 % (0-10) 06/07/18 05:03 Lymphocytes % 5.9 % (20.0-50.0) L 06/07/18 05:03 Monocytes % 4.4 % (2.0-10.0) 06/07/18 05:03 Eosinophils % 0.8 % (0.0-5.0) 06/07/18 05:03 Basophils % 0.2 % (0.0-2.0) 06/07/18 05:03 Neutrophils (Manual) 88 % (40-80) H 06/07/18 05:03 Lymphocytes 6 % (20-50) L 06/07/18 05:03 Monocytes 4 % (2-10) 06/07/18 05:03 Eosinophils 2 % (0-5) 06/07/18 05:03 Basophils 0 % (0-3) 06/07/18 05:03 Sodium 136 mEq/L (136-145) 06/07/18 05:03 Potassium 4.5 mEq/L (3.5-5.1) 06/07/18 05:03 Chloride 103 mEq/L (98-107) 06/07/18 05:03 Carbon Dioxide 23.7 mEq/L (21.0-31.0) 06/07/18 05:03 Anion Gap 13.8 (7.0-16.0) 06/07/18 05:03 BUN 67 mg/dL (7-25) H 06/07/18 05:03 Creatinine 1.8 mg/dL (0.7-1.3) H 06/07/18 05:03 Est GFR ( Amer) 48.8 ml/min (>90) 06/07/18 05:03 Est GFR (Non-Af Amer) 40.3 ml/min 06/07/18 05:03 BUN/Creatinine Ratio 37.2 06/07/18 05:03 Glucose 198 mg/dL (70-105) H 06/07/18 05:03 POC Glucose 261 MG/DL (70 - 105) H 06/07/18 16:17 Calcium 8.8 mg/dL (8.6-10.3) 06/07/18 05:03 Phosphorus 4.7 mg/dL (2.5-5.0) 06/05/18 16:00 Magnesium 2.4 mg/dL (1.9-2.7) 06/05/18 16:00 Total Bilirubin 0.5 mg/dL (0.3-1.0) 06/06/18 04:43 AST 12 U/L (13-39) L 06/06/18 04:43 ALT 13 U/L (7-52) 06/06/18 04:43 Alkaline Phosphatase 97 U/L (34-104) 06/06/18 04:43 Ammonia 38 umol/L (16-53) 06/05/18 16:00 Total Protein 6.8 gm/dL (6.0-8.3) 06/06/18 04:43 Albumin 3.4 gm/dL (4.2-5.5) L 06/06/18 04:43 Globulin 3.4 gm/dL 06/06/18 04:43 Albumin/Globulin Ratio 1.0 (1.0-1.8) 06/06/18 04:43 TSH 0.99 uIU/ml (0.34-5.60) 06/06/18 04:43 Urine Source CLEAN C 06/05/18 17:30 Urine Color YELLOW 06/05/18 17:30 Urine Clarity CLEAR (CLEAR) 06/05/18 17:30 Urine pH 6.0 (4.6 - 8.0) 06/05/18 17:30 Ur Specific [place] 1.025 (1.005-1.030) 06/05/18 17:30 Urine Protein >=300 mg/dL (NEGATIVE) 06/05/18 17:30 Urine Glucose (UA) 100 mg/dL (NEGATIVE) H 06/05/18 17:30 Urine Ketones NEGATIVE mg/dL (NEGATIVE) 06/05/18 17:30 Urine Blood SMALL (NEGATIVE) H 06/05/18 17:30 Urine Nitrate NEGATIVE (NEGATIVE) 06/05/18 17:30 Urine Bilirubin NEGATIVE (NEGATIVE) 06/05/18 17:30 Urine Urobilinogen 0.2 E.U./dL (0.2 - 1.0) 06/05/18 17:30 Ur Leukocyte Esterase NEGATIVE (NEGATIVE) 06/05/18 17:30 Urine RBC 2-5 /hpf (0-5) H 06/05/18 17:30 Urine WBC 0-2 /hpf (0-5) 06/05/18 17:30 Ur Epithelial Cells FEW /lpf (FEW) 06/05/18 17:30 Urine Bacteria FEW /hpf (NONE SEEN) 06/05/18 17:30 Coarse Granular Casts 0-2 /lpf (NONE SEEN) H 06/05/18 17:30 Stool Occult Blood POSITIVE (NEGATIVE) H 06/05/18 18:00 Urine Opiates Screen NEGATIVE (NEGATIVE) 06/05/18 17:30 Urine Methadone Screen NEGATIVE (NEGATIVE) 06/05/18 17:30 Ur Barbiturates Screen NEGATIVE (NEGATIVE) 06/05/18 17:30 Ur Tricyclics Screen NEGATIVE (NEGATIVE) 06/05/18 17:30 Ur Phencyclidine Scrn NEGATIVE (NEGATIVE) 06/05/18 17:30 Amphetamines Screen NEGATIVE (NEGATIVE) 06/05/18 17:30 U Methamphetamines Scrn NEGATIVE (NEGATIVE) 12/07/18 17:30 U Benzodiazepines Scrn NEGATIVE (NEGATIVE) 06/05/18 17:30 U Cocaine Metab Screen NEGATIVE (NEGATIVE) 06/05/18 17:30 U Cannabinoids Screen NEGATIVE (NEGATIVE) 06/05/18 17:30 - Physical Exam Vitals and I&O: Vital Signs Temp 97.4 F 06/07/18 20:00 Pulse 68 06/07/18 20:00 Resp 18 06/07/18 20:00 BP 138/90 06/07/18 20:00 Pulse Ox 92 06/07/18 20:00 Intake & Output 06/07/18 06/07/18 06/08/18 06:59 18:59 06:59 Intake Total 50 300 Balance 50 300 Weight (lbs) 121.109 kg 120.202 kg Intake: Intake, IV Amount 50 Piperacillin Sodium/ 50 Tazobact 3.375 gm In Sodium Chloride 0.9% 50 ml @ 100 mls/hr IV Q6HR [facility] Rx#:[id number] Oral 300 Other: # Voids 2 Weight Source Bedscale Bedscale Active Medications: Current Medications Acetaminophen (Tylenol) 650 mg PO Q4H PRN PRN Reason: PAIN Amlodipine Besylate (Norvasc) 5 mg PO DAILY [facility] Stop: 08/05/18 11:14 Last Admin: 06/07/18 09:18 Dose: Not Given Carvedilol (Coreg) 25 mg PO BID [facility] Stop: 08/05/18 16:59 Last Admin: 06/07/18 16:56 Dose: 25 mg Finasteride (Proscar) 5 mg PO DAILY [facility]; Protocol Stop: 08/05/18 11:14 Last Admin: 06/07/18 09:08 Dose: 5 mg Furosemide (Lasix) 40 mg PO DAILY [facility] Stop: 08/06/18 08:59 Last Admin: 06/07/18 09:10 Dose: 40 mg Hydrochlorothiazide (Hctz) 25 mg PO DAILY [facility] Stop: 08/05/18 11:14 Last Admin: 06/07/18 09:20 Dose: Not Given Vancomycin HCl 1.5 gm/ Sodium (Chloride) 500 mls @ 250 mls/hr IV Q24H [facility] Stop: 08/05/18 08:59 Last Admin: 06/07/18 09:27 Dose: 250 mls/hr Insulin Aspart (Novolog Insulin Sliding Scale) 0 units SUBQ ACHS [facility]; Protocol Stop: 08/04/18 20:59 Last Admin: 06/07/18 16:57 Dose: 7 units Isosorbide Dinitrate (Isordil) 20 mg PO BID [facility] Stop: 08/05/18 16:59 Last Admin: 06/07/18 16:55 Dose: 20 mg Miscellaneous (Vancomycin Iv Per Pharmacy) 1 ea MC PRN PRN PRN Reason: PROTOCOL Stop: 08/04/18 20:52 Sennosides (Senna Plus 50 Mg-8.6 Mg) 1 tab PO HS PRN PRN Reason: Constipation Stop: 08/05/18 11:13 Tamsulosin HCl (Flomax) 0.4 mg PO DAILY [facility] Stop: 08/06/18 08:59 Last Admin: 06/07/18 09:12 Dose: 0.4 mg General: no acute distress, well developed, well nourished HEENT: atraumatic, normocephalic, PERRLA Neck: supple, no thyromegaly Cardiovascular: S1S2, regular Lungs: clear to auscultation bilaterally, clear to percussion Abdomen: soft, no tender, no distended Extremities: no cyanosis, no clubbing, no edema Neurological: awake, alert, oriented Skin: intact Infectious Disease Assmt/Plan - Problem List Patient Problems: All Active Problems WEAKNESS WITH ELEVATED NH3 (Acute) - Assessment Assessment: 1. Bilateral leg cellulitis, right lower leg and left lower leg cellulitis. 2. Staph aureus infection. 3. Diabetes mellitus type 2. 4. Obesity. 5. Chronic kidney disease, stage 2. 6. Coronary artery disease. 7. Peripheral arterial disease. - Plan Plan: Will change vancO IV to Rocephin. Nutritional Asmnt/Malnutr-PDOC - Dietary Evaluation Malnutrition Findings (Please click <Entered> for more info): Nutritional Asmnt/Malnutrition Start: 06/06/18 12: 07 Text: Status: Complete Freq: Protocol: Document 06/06/18 12:08 ALICIA (Rec: 06/06/18 12:38 [email or web address]- [email or web address]) Nutritional Asmnt/Malnutrition Patient General Information Nutritional Screening High Risk Diagnosis Cellulitis BLE Pertinent Medical Hx/Surgical Hx CAD, CHF, HTN, anxiety, depression, weakness, chronic renal insufficiency, diabetes, cellulitis Subjective Information Patient was admitted from [facility]. Patient states he has a good appetite, no problems chewing or swallowing, and is tolerating current diet. He likes coffee, bananas, eggs, oatmeal, teixeira, milk, sugar free ice cream and likes to have an evening snack. He states BG is usually controlled. Current Diet Order/ Nutrition Support 60 gm CCHO Patient / S.O Not Indicated Pertinent Medications lasix, Novolog, abx Pertinent Labs (06/06) BUN 58, Cr 1.6, glucose 218-293, albumin 3.4 Nutritional Hx/Data Height 1.73 m Height (Calculated Centimeters) 172.7 Current Weight (lbs) 119.295 kg Weight (Calculated Kilograms) 119.3 Weight (Calculated Grams) 386754.8 [place] Body Weight 154 % [place] Body Weight 170 Body Mass Index (BMI) 39.9 Recent Weight Change No Weight Status Obese GI Symptoms GI Symptoms None Last BM none noted in EMR Difficult in: None Food Allergies No Cultural/Ethnic/Episcopal Belief none indicated Usual diet at home unknown Skin Integrity/Comment: [place] 19, Reddened lower legs (cellulitis) Estimated Nutritional Goals BEE in Kcals: Adj wt of IBW Calories/Kcals/Kg 25-30 kcal/kg (using Adj wt 82 .3kg) Kcals Calculated ~6519-7208 kcal/day Protein: Adj wt of IBW Protein g/k-1.2 gm/kg Protein Calculated ~80-100 gm/day Fluid: ml ~8034-2905 ml/day (1 ml/kcal) Nutritional Problem 1. Problem Problem Altered nutrition related lab values related to Etiology uncontrolled hyperglycemia Signs/Symptoms: aeb glucose [id number] Intervention/Recommendation Comments 1. Continue 60 gm CCHO diet as tolerated by patient. Educated patient on DM Diet; pt verbalized understanding. 2. MD to continue to modify insulin regimen for optimal glycemic control. 3. F/U in 3-5 days as MR (-) Expected Outcomes/Goals Expected Outcomes/Goals Oral intake >75% of meals, weight stable or trend toward IBW, glucose normalizes
[2018-06-07] MEDS: cefTRIAXone 2 GM in Sodium Chloride 0.9% 100 ML IV SCH (22:11)
[2018-06-08] MEDS: INSULIN ASPART SLIDING SCALE 100 UNITS/ML UNIT SUBQ SCH ×4 (06:36→20:22)
[2018-06-08 08:00] LABS: % BASOPHILS 0.4 % (0.0-2.0); % EOSINOPHILS 0.9 % (0.0-5.0); % LYMPHOCYTES 10.4 % (20.0-50.0); % NEUTROPHILS 82.3 % (40.0-80.0); EOSINOPHILE ABSOLUTE 0.1 Th/cmm (0.1-0.4); HEMATOCRIT 43.1 % (41.0-60); HEMOGLOBIN 14.6 gm/dL (12-16); LYMPHOCYTE ABSOLUTE 1.2 Th/cmm (1.5-3.0); MEAN CELL VOLUME 86.1 fl (80-99); MEAN CORPUSCULAR HEMOGLOBIN 29.1 pg (27.0-31.0); MEAN CORPUSCULAR HGB CONC 33.8 pg (28.0-36.0); MEAN PLATELET VOLUME 6.9 fl; MONOCYTE ABSOLUTE 0.7 Th/cmm (0.3-1.0); NEUTROPHILE ABSOLUTE 9.4 Th/cmm (1.8-8.0); PLATELET COUNT 177 Th/cmm (150-400); RED BLOOD COUNT 5.01 Mil/cmm (3.80-5.80); RED CELL DISTRIBUTION WIDTH 14.1 % (11.5-20.0); WHITE BLOOD COUNT 11.4 Th/cmm (4.8-10.8)
[2018-06-08] MEDS: Vancomycin HCl 1.5 GM in Sodium Chloride 0.9% 500 ML IV SCH (09:07)
--- NOTE | 2018-06-08 09:08 | General Progress Note ---
Subjective - Review of Systems Service Date: 06/08/18 Subjective: I am fine Objective - Results Result Diagrams: 06/07/18 05:03 06/07/18 05:03 Recent Labs: Laboratory Last Values WBC 14.7 Th/cmm (4.8-10.8) H 06/07/18 05:03 RBC 4.92 Mil/cmm (3.80-5.80) 06/07/18 05:03 Hgb 14.1 gm/dL (12-16) 06/07/18 05:03 Hct 42.4 % (41.0-60) 06/07/18 05:03 MCV 86.2 fl (80-99) 06/07/18 05:03 MCH 28.6 pg (27.0-31.0) 06/07/18 05:03 MCHC Differential 33.2 pg (28.0-36.0) 06/07/18 05:03 RDW 14.5 % (11.5-20.0) 06/07/18 05:03 Plt Count 173 Th/cmm (150-400) 06/07/18 05:03 MPV 7.5 fl 06/07/18 05:03 Add Manual Diff YES 06/06/18 04:43 Neutrophils % 88.7 % (40.0-80.0) H 06/07/18 05:03 Band Neutrophils % 0 % (0-10) 06/07/18 05:03 Lymphocytes % 5.9 % (20.0-50.0) L 06/07/18 05:03 Monocytes % 4.4 % (2.0-10.0) 06/07/18 05:03 Eosinophils % 0.8 % (0.0-5.0) 06/07/18 05:03 Basophils % 0.2 % (0.0-2.0) 06/07/18 05:03 Neutrophils (Manual) 88 % (40-80) H 06/07/18 05:03 Lymphocytes 6 % (20-50) L 06/07/18 05:03 Monocytes 4 % (2-10) 06/07/18 05:03 Eosinophils 2 % (0-5) 06/07/18 05:03 Basophils 0 % (0-3) 06/07/18 05:03 Sodium 136 mEq/L (136-145) 06/07/18 05:03 Potassium 4.5 mEq/L (3.5-5.1) 06/07/18 05:03 Chloride 103 mEq/L (98-107) 06/07/18 05:03 Carbon Dioxide 23.7 mEq/L (21.0-31.0) 06/07/18 05:03 Anion Gap 13.8 (7.0-16.0) 06/07/18 05:03 BUN 67 mg/dL (7-25) H 06/07/18 05:03 Creatinine 1.8 mg/dL (0.7-1.3) H 06/07/18 05:03 Est GFR ( Amer) 48.8 ml/min (>90) 06/07/18 05:03 Est GFR (Non-Af Amer) 40.3 ml/min 06/07/18 05:03 BUN/Creatinine Ratio 37.2 06/07/18 05:03 Glucose 198 mg/dL (70-105) H 06/07/18 05:03 POC Glucose 130 MG/DL (70 - 105) H 06/08/18 05:45 Calcium 8.8 mg/dL (8.6-10.3) 06/07/18 05:03 Phosphorus 4.7 mg/dL (2.5-5.0) 06/05/18 16:00 Magnesium 2.4 mg/dL (1.9-2.7) 06/05/18 16:00 Total Bilirubin 0.5 mg/dL (0.3-1.0) 06/06/18 04:43 AST 12 U/L (13-39) L 06/06/18 04:43 ALT 13 U/L (7-52) 06/06/18 04:43 Alkaline Phosphatase 97 U/L (34-104) 06/06/18 04:43 Ammonia 38 umol/L (16-53) 06/05/18 16:00 Total Protein 6.8 gm/dL (6.0-8.3) 06/06/18 04:43 Albumin 3.4 gm/dL (4.2-5.5) L 06/06/18 04:43 Globulin 3.4 gm/dL 06/06/18 04:43 Albumin/Globulin Ratio 1.0 (1.0-1.8) 06/06/18 04:43 TSH 0.99 uIU/ml (0.34-5.60) 06/06/18 04:43 Urine Source CLEAN C 06/05/18 17:30 Urine Color YELLOW 06/05/18 17:30 Urine Clarity CLEAR (CLEAR) 06/05/18 17:30 Urine pH 6.0 (4.6 - 8.0) 06/05/18 17:30 Ur Specific [place] 1.025 (1.005-1.030) 06/05/18 17:30 Urine Protein >=300 mg/dL (NEGATIVE) 06/05/18 17:30 Urine Glucose (UA) 100 mg/dL (NEGATIVE) H 06/05/18 17:30 Urine Ketones NEGATIVE mg/dL (NEGATIVE) 06/05/18 17:30 Urine Blood SMALL (NEGATIVE) H 06/05/18 17:30 Urine Nitrate NEGATIVE (NEGATIVE) 06/05/18 17:30 Urine Bilirubin NEGATIVE (NEGATIVE) 06/05/18 17:30 Urine Urobilinogen 0.2 E.U./dL (0.2 - 1.0) 06/05/18 17:30 Ur Leukocyte Esterase NEGATIVE (NEGATIVE) 06/05/18 17:30 Urine RBC 2-5 /hpf (0-5) H 06/05/18 17:30 Urine WBC 0-2 /hpf (0-5) 06/05/18 17:30 Ur Epithelial Cells FEW /lpf (FEW) 06/05/18 17:30 Urine Bacteria FEW /hpf (NONE SEEN) 06/05/18 17:30 Coarse Granular Casts 0-2 /lpf (NONE SEEN) H 06/05/18 17:30 Stool Occult Blood POSITIVE (NEGATIVE) H 06/05/18 18:00 Urine Opiates Screen NEGATIVE (NEGATIVE) 06/05/18 17:30 Urine Methadone Screen NEGATIVE (NEGATIVE) 06/05/18 17:30 Ur Barbiturates Screen NEGATIVE (NEGATIVE) 06/05/18 17:30 Ur Tricyclics Screen NEGATIVE (NEGATIVE) 06/05/18 17:30 Ur Phencyclidine Scrn NEGATIVE (NEGATIVE) 06/05/18 17:30 Amphetamines Screen NEGATIVE (NEGATIVE) 06/05/18 17:30 U Methamphetamines Scrn NEGATIVE (NEGATIVE) 06/05/18 17:30 U Benzodiazepines Scrn NEGATIVE (NEGATIVE) 06/05/18 17:30 U Cocaine Metab Screen NEGATIVE (NEGATIVE) 06/05/18 17:30 U Cannabinoids Screen NEGATIVE (NEGATIVE) 06/05/18 17:30 - Physical Exam Vitals and I&O: Vital Signs Temp 97.6 F 06/08/18 08:15 Pulse 72 06/08/18 08:15 Resp 18 06/08/18 08:15 BP 171/95 06/08/18 08:15 Pulse Ox 96 06/08/18 08:15 Intake & Output 06/07/18 06/08/18 06/08/18 18:59 06:59 18:59 Intake Total 300 250 Balance 300 250 Weight (lbs) 120.202 kg 130.181 kg Intake: Intake, IV Amount 100 cefTRIAXone 2 gm In 100 Sodium Chloride 0.9% 100 ml @ 100 mls/hr IV Q24H [facility] Rx#:[id number] Oral 300 150 Other: # Voids 2 3 # Bowel Movements 2 Weight Source Bedscale Bedscale Active Medications: Current Medications Acetaminophen (Tylenol) 650 mg PO Q4H PRN PRN Reason: PAIN Amlodipine Besylate (Norvasc) 5 mg PO DAILY [facility] Stop: 08/05/18 11:14 Last Admin: 06/07/18 09:18 Dose: Not Given Carvedilol (Coreg) 25 mg PO BID [facility] Stop: 08/05/18 16:59 Last Admin: 06/07/18 16:56 Dose: 25 mg Finasteride (Proscar) 5 mg PO DAILY [facility]; Protocol Stop: 08/05/18 11:14 Last Admin: 06/07/18 09:08 Dose: 5 mg Furosemide (Lasix) 40 mg PO DAILY [facility] Stop: 08/06/18 08:59 Last Admin: 06/07/18 09:10 Dose: 40 mg Hydrochlorothiazide (Hctz) 25 mg PO DAILY [facility] Stop: 08/05/18 11:14 Last Admin: 06/07/18 09:20 Dose: Not Given Vancomycin HCl 1.5 gm/ Sodium (Chloride) 500 mls @ 250 mls/hr IV Q24H [facility] Stop: 08/05/18 08:59 Last Admin: 06/07/18 09:27 Dose: 250 mls/hr Ceftriaxone Sodium 2 gm/ (Sodium Chloride) 100 mls @ 100 mls/hr IV Q24H [facility] Stop: 08/06/18 21:59 Last Infusion: 06/07/18 23:11 Dose: Infused Insulin Aspart (Novolog Insulin Sliding Scale) 0 units SUBQ ACHS [facility]; Protocol Stop: 08/04/18 20:59 Last Admin: 06/08/18 06:36 Dose: Not Given Isosorbide Dinitrate (Isordil) 20 mg PO BID [facility] Stop: 08/05/18 16:59 Last Admin: 06/07/18 16:55 Dose: 20 mg Miscellaneous (Vancomycin Iv Per Pharmacy) 1 [facility] PRN PRN PRN Reason: PROTOCOL Stop: 08/04/18 20:52 Sennosides (Senna Plus 50 Mg-8.6 Mg) 1 tab PO HS PRN PRN Reason: Constipation Stop: 08/05/18 11:13 Tamsulosin HCl (Flomax) 0.4 mg PO DAILY [facility] Stop: 08/06/18 08:59 Last Admin: 06/07/18 09:12 Dose: 0.4 mg General: Alert, Other (confused) HEENT: Atraumatic Neck: Supple Cardiovascular: Regular rate Lungs: Clear to auscultation Abdomen: Bowel sounds, Soft Extremities: Other (Bilateral redness of lower extremities) Neurological: Other (Unstable gait) Skin: Other (Redness of lower extremities) Psych/Mental Status: Other (Patient is confused) Assessment/Plan - Problem List Patient Problems: All Active Problems WEAKNESS WITH ELEVATED NH3 (Acute) - Assessment Assessment: Patient is awake, alert, confused. Culture was positive for MRSA, sensible to [place]. Dx : Bilateral cellulites, DM, CHF, CAD, PVD, COPD, Obesity. - Plan Plan: Patient is awake, confused, not oriented. He is in IV NS, IV AB, and SNF meds. Will continue to monitor. Nutritional Asmnt/Malnutr-PDOC - Dietary Evaluation Malnutrition Findings (Please click <Entered> for more info): Nutritional Asmnt/Malnutrition Start: 06/06/18 12: 07 Text: Status: Complete Freq: Protocol: Document 06/06/18 12:08 ALICIA (Rec: 06/06/18 12:38 [email or web address] [email or web address]) Nutritional Asmnt/Malnutrition Patient General Information Nutritional Screening High Risk Diagnosis Cellulitis BLE Pertinent Medical Hx/Surgical Hx CAD, CHF, HTN, anxiety, depression, weakness, chronic renal insufficiency, diabetes, cellulitis Subjective Information Patient was admitted from [facility]. Patient states he has a good appetite, no problems chewing or swallowing, and is tolerating current diet. He likes coffee, bananas, eggs, oatmeal, teixeira, milk, sugar free ice cream and likes to have an evening snack. He states BG is usually controlled. Current Diet Order/ Nutrition Support 60 gm CCHO Patient / S.O Not Indicated Pertinent Medications lasix, Novolog, abx Pertinent Labs (06/06) BUN 58, Cr 1.6, glucose 218-293, albumin 3.4 Nutritional Hx/Data Height 1.73 m Height (Calculated Centimeters) 172.7 Current Weight (lbs) 119.295 kg Weight (Calculated Kilograms) 119.3 Weight (Calculated Grams) 258835.8 [place] Body Weight 154 % [place] Body Weight 170 Body Mass Index (BMI) 39.9 Recent Weight Change No Weight Status Obese GI Symptoms GI Symptoms None Last BM none noted in EMR Difficult in: None Food Allergies No Cultural/Ethnic/Confucianist Belief none indicated Usual diet at home unknown Skin Integrity/Comment: Lanre 19, Reddened lower legs (cellulitis) Estimated Nutritional Goals BEE in Kcals: Adj wt of IBW Calories/Kcals/Kg 25-30 kcal/kg (using Adj wt 82 .3kg) Kcals Calculated ~6618-4234 kcal/day Protein: Adj wt of IBW Protein g/k-1.2 gm/kg Protein Calculated ~80-100 gm/day Fluid: ml ~4416-3007 ml/day (1 ml/kcal) Nutritional Problem 1. Problem Problem Altered nutrition related lab values related to Etiology uncontrolled hyperglycemia Signs/Symptoms: aeb glucose 218-293 Intervention/Recommendation Comments 1. Continue 60 gm CCHO diet as tolerated by patient. Educated patient on DM Diet; pt verbalized understanding. 2. MD to continue to modify insulin regimen for optimal glycemic control. 3. F/U in 3-5 days as MR (-) Expected Outcomes/Goals Expected Outcomes/Goals Oral intake >75% of meals, weight stable or trend toward IBW, glucose normalizes
[2018-06-08 09:33] LABS: ALBUMIN 3.3 gm/dL (4.2-5.5); ANION GAP 10.4 (7.0-16.0); BILIRUBIN,TOTAL 0.5 mg/dL (0.3-1.0); CALCIUM SERUM 8.9 mg/dL (8.6-10.3); CARBON DIOXIDE 28.5 mEq/L (21.0-31.0); CREATININE - SERUM 1.6 mg/dL (0.7-1.3); GFR AFRICAN-AMERICAN 55.9 ml/min (>90); GFR NON AFRICAN-AMERICAN 46.2 ml/min; POTASSIUM SERUM 4.9 mEq/L (3.5-5.1); TOTAL PROTEIN,SERUM 6.5 gm/dL (6.0-8.3)
[2018-06-08] MEDS: Multivitamin w/ Minerals Tab PO SCH (10:24)
[2018-06-08] MEDS ORDERED: Probiotic Screen MC PRN (10:35)
--- NOTE | 2018-06-08 14:01 | Infectious Disease Prog Note ---
Infectious Disease Subjective - Review of Systems Service Date: 06/08/18 Subjective: No new change, no fever. Infectious Disease Objective - Results Result Diagrams: 06/08/18 08:00 06/08/18 08:00 Recent Labs: Laboratory Last Values WBC 11.4 Th/cmm (4.8-10.8) H 06/08/18 08:00 RBC 5.01 Mil/cmm (3.80-5.80) 06/08/18 08:00 Hgb 14.6 gm/dL (12-16) 06/08/18 08:00 Hct 43.1 % (41.0-60) 06/08/18 08:00 MCV 86.1 fl (80-99) 06/08/18 08:00 MCH 29.1 pg (27.0-31.0) 06/08/18 08:00 MCHC Differential 33.8 pg (28.0-36.0) 06/08/18 08:00 RDW 14.1 % (11.5-20.0) 06/08/18 08:00 Plt Count 177 Th/cmm (150-400) 06/08/18 08:00 MPV 6.9 fl 06/08/18 08:00 Add Manual Diff YES 06/06/18 04:43 Neutrophils % 82.3 % (40.0-80.0) H 06/08/18 08:00 Band Neutrophils % 0 % (0-10) 06/07/18 05:03 Lymphocytes % 10.4 % (20.0-50.0) L 06/08/18 08:00 Monocytes % 6.0 % (2.0-10.0) 06/08/18 08:00 Eosinophils % 0.9 % (0.0-5.0) 06/08/18 08:00 Basophils % 0.4 % (0.0-2.0) 06/08/18 08:00 Neutrophils (Manual) 88 % (40-80) H 06/07/18 05:03 Lymphocytes 6 % (20-50) L 06/07/18 05:03 Monocytes 4 % (2-10) 06/07/18 05:03 Eosinophils 2 % (0-5) 06/07/18 05:03 Basophils 0 % (0-3) 06/07/18 05:03 Sodium 136 mEq/L (136-145) 06/08/18 08:00 Potassium 4.9 mEq/L (3.5-5.1) 06/08/18 08:00 Chloride 102 mEq/L (98-107) 06/08/18 08:00 Carbon Dioxide 28.5 mEq/L (21.0-31.0) 06/08/18 08:00 Anion Gap 10.4 (7.0-16.0) 06/08/18 08:00 BUN 66 mg/dL (7-25) H 06/08/18 08:00 Creatinine 1.6 mg/dL (0.7-1.3) H 06/08/18 08:00 Est GFR ( Amer) 55.9 ml/min (>90) 06/08/18 08:00 Est GFR (Non-Af Amer) 46.2 ml/min 06/08/18 08:00 BUN/Creatinine Ratio 41.3 06/08/18 08:00 Glucose 176 mg/dL (70-105) H 06/08/18 08:00 POC Glucose 223 MG/DL (70 - 105) H 06/08/18 11:22 Calcium 8.9 mg/dL (8.6-10.3) 06/08/18 08:00 Phosphorus 4.7 mg/dL (2.5-5.0) 06/05/18 16:00 Magnesium 2.4 mg/dL (1.9-2.7) 06/05/18 16:00 Total Bilirubin 0.5 mg/dL (0.3-1.0) 06/08/18 08:00 AST 16 U/L (13-39) 06/08/18 08:00 ALT 16 U/L (7-52) 06/08/18 08:00 Alkaline Phosphatase 78 U/L (34-104) 06/08/18 08:00 Ammonia 38 umol/L (16-53) 06/05/18 16:00 Total Protein 6.5 gm/dL (6.0-8.3) 06/08/18 08:00 Albumin 3.3 gm/dL (4.2-5.5) L 06/08/18 08:00 Globulin 3.2 gm/dL 06/08/18 08:00 Albumin/Globulin Ratio 1.0 (1.0-1.8) 06/08/18 08:00 TSH 0.99 uIU/ml (0.34-5.60) 06/06/18 04:43 Urine Source CLEAN C 06/05/18 17:30 Urine Color YELLOW 06/05/18 17:30 Urine Clarity CLEAR (CLEAR) 06/05/18 17:30 Urine pH 6.0 (4.6 - 8.0) 06/05/18 17:30 Ur Specific [place] 1.025 (1.005-1.030) 06/05/18 17:30 Urine Protein >=300 mg/dL (NEGATIVE) 06/05/18 17:30 Urine Glucose (UA) 100 mg/dL (NEGATIVE) H 06/05/18 17:30 Urine Ketones NEGATIVE mg/dL (NEGATIVE) 06/05/18 17:30 Urine Blood SMALL (NEGATIVE) H 06/05/18 17:30 Urine Nitrate NEGATIVE (NEGATIVE) 06/05/18 17:30 Urine Bilirubin NEGATIVE (NEGATIVE) 06/05/18 17:30 Urine Urobilinogen 0.2 E.U./dL (0.2 - 1.0) 06/05/18 17:30 Ur Leukocyte Esterase NEGATIVE (NEGATIVE) 06/05/18 17:30 Urine RBC 2-5 /hpf (0-5) H 06/05/18 17:30 Urine WBC 0-2 /hpf (0-5) 06/05/18 17:30 Ur Epithelial Cells FEW /lpf (FEW) 06/05/18 17:30 Urine Bacteria FEW /hpf (NONE SEEN) 06/05/18 17:30 Coarse Granular Casts 0-2 /lpf (NONE SEEN) H 06/05/18 17:30 Stool Occult Blood POSITIVE (NEGATIVE) H 06/05/18 18:00 Vancomycin Trough 16.3 ug/mL (5-10) H 06/08/18 08:00 Urine Opiates Screen NEGATIVE (NEGATIVE) 06/05/18 17:30 Urine Methadone Screen NEGATIVE (NEGATIVE) 06/05/18 17:30 Ur Barbiturates Screen NEGATIVE (NEGATIVE) 06/05/18 17:30 Ur Tricyclics Screen NEGATIVE (NEGATIVE) 06/05/18 17:30 Ur Phencyclidine Scrn NEGATIVE (NEGATIVE) 06/05/18 17:30 Amphetamines Screen NEGATIVE (NEGATIVE) 06/05/18 17:30 U Methamphetamines Scrn NEGATIVE (NEGATIVE) 06/05/18 17:30 U Benzodiazepines Scrn NEGATIVE (NEGATIVE) 06/05/18 17:30 U Cocaine Metab Screen NEGATIVE (NEGATIVE) 06/05/18 17:30 U Cannabinoids Screen NEGATIVE (NEGATIVE) 06/05/18 17:30 - Physical Exam Vitals and I&O: Vital Signs Temp 97.6 F 06/08/18 08:15 Pulse 72 06/08/18 10:24 Resp 18 06/08/18 08:15 BP 171/95 06/08/18 10:25 Pulse Ox 96 06/08/18 08:15 Intake & Output 06/07/18 06/08/18 06/08/18 18:59 06:59 18:59 Intake Total 800 250 Balance 800 250 Weight (lbs) 120.202 kg 130.181 kg Intake: Intake, IV Amount 500 100 Vancomycin HCl 1.5 gm In 500 Sodium Chloride 0.9% 500 ml @ 250 mls/hr IV Q24H [facility] Rx#:[id number] cefTRIAXone 2 gm In 100 Sodium Chloride 0.9% 100 ml @ 100 mls/hr IV Q24H [facility] Rx#:[id number] Oral 300 150 Other: # Voids 2 3 # Bowel Movements 2 Weight Source Bedscale Bedscale Active Medications: Current Medications Acetaminophen (Tylenol) 650 mg PO Q4H PRN PRN Reason: PAIN Amlodipine Besylate (Norvasc) 5 mg PO DAILY [facility] Stop: 08/05/18 11:14 Last Admin: 06/08/18 10:24 Dose: 5 mg Carvedilol (Coreg) 25 mg PO BID [facility] Stop: 08/05/18 16:59 Last Admin: 06/08/18 10:24 Dose: 25 mg Finasteride (Proscar) 5 mg PO DAILY [facility]; Protocol Stop: 08/05/18 11:14 Last Admin: 06/08/18 10:24 Dose: 5 mg Furosemide (Lasix) 40 mg PO DAILY [facility] Stop: 08/06/18 08:59 Last Admin: 06/08/18 10:25 Dose: 40 mg Hydrochlorothiazide (Hctz) 25 mg PO DAILY [facility] Stop: 08/05/18 11:14 Last Admin: 06/08/18 10:22 Dose: 25 mg Vancomycin HCl 1.5 gm/ Sodium (Chloride) 500 mls @ 250 mls/hr IV Q24H [facility] Stop: 08/05/18 08:59 Last Admin: 06/08/18 09:07 Dose: 250 mls/hr Ceftriaxone Sodium 2 gm/ (Sodium Chloride) 100 mls @ 100 mls/hr IV Q24H [facility] Stop: 08/06/18 21:59 Last Infusion: 06/07/18 23:11 Dose: Infused Insulin Aspart (Novolog Insulin Sliding Scale) 0 units SUBQ ACHS [facility]; Protocol Stop: 08/04/18 20:59 Last Admin: 06/08/18 06:36 Dose: Not Given Isosorbide Dinitrate (Isordil) 20 mg PO BID [facility] Stop: 08/05/18 16:59 Last Admin: 06/08/18 10:22 Dose: 20 mg Lactobacillus Rhamnosus (Culturelle 15b) 1 each PO DAILY [facility] Stop: 08/07/18 13:59 Miscellaneous (Vancomycin Iv Per Pharmacy) 1 [facility] PRN PRN PRN Reason: PROTOCOL Stop: 08/04/18 20:52 Miscellaneous (Probiotic Screen) 1 [facility] PRN PRN PRN Reason: PROTOCOL Stop: 08/07/18 10:34 Sennosides (Senna Plus 50 Mg-8.6 Mg) 1 tab PO HS PRN PRN Reason: Constipation Stop: 08/05/18 11:13 Tamsulosin HCl (Flomax) 0.4 mg PO DAILY [facility] Stop: 08/06/18 08:59 Last Admin: 06/08/18 10:24 Dose: 0.4 mg General: no acute distress, well developed, well nourished HEENT: atraumatic, normocephalic, PERRLA, EOMI, moist mucous membrane Neck: supple, no thyromegaly, no lymphadenopathy, no rigid Cardiovascular: S1S2, regular Lungs: clear to auscultation bilaterally, clear to percussion Abdomen: soft, no tender, no distended Extremities: no cyanosis, no clubbing, no edema Neurological: awake, alert, oriented Skin: intact Infectious Disease Assmt/Plan - Problem List Patient Problems: All Active Problems WEAKNESS WITH ELEVATED NH3 (Acute) - Assessment Assessment: 1. Bilateral leg cellulitis, right lower leg and left lower leg cellulitis. 2. Staph aureus infection. 3. Diabetes mellitus type 2. 4. Obesity. 5. Chronic kidney disease, stage 2. 6. Coronary artery disease. 7. Peripheral arterial disease. - Plan Plan: continue Rocephin. Nutritional Asmnt/Malnutr-PDOC - Dietary Evaluation Malnutrition Findings (Please click <Entered> for more info): Nutritional Asmnt/Malnutrition Start: 06/06/18 12: 07 Text: Status: Complete Freq: Protocol: Document 06/06/18 12:08 ALICIA (Rec: 06/06/18 12:38 [email or web address]- [email or web address]) Nutritional Asmnt/Malnutrition Patient General Information Nutritional Screening High Risk Diagnosis Cellulitis BLE Pertinent Medical Hx/Surgical Hx CAD, CHF, HTN, anxiety, depression, weakness, chronic renal insufficiency, diabetes, cellulitis Subjective Information Patient was admitted from [facility]. Patient states he has a good appetite, no problems chewing or swallowing, and is tolerating current diet. He likes coffee, bananas, eggs, oatmeal, teixeira, milk, sugar free ice cream and likes to have an evening snack. He states BG is usually controlled. Current Diet Order/ Nutrition Support [facility] Patient / S.O Not Indicated Pertinent Medications lasix, Novolog, abx Pertinent Labs (06/06) BUN 58, Cr 1.6, glucose 218-293, albumin 3.4 Nutritional Hx/Data Height 1.73 m Height (Calculated Centimeters) 172.7 Current Weight (lbs) 119.295 kg Weight (Calculated Kilograms) 119.3 Weight (Calculated Grams) 849219.8 [place] Body Weight 154 % [place] Body Weight 170 Body Mass Index (BMI) 39.9 Recent Weight Change No Weight Status Obese GI Symptoms GI Symptoms None Last BM none noted in EMR Difficult in: None Food Allergies No Cultural/Ethnic/Hoahaoism Belief none indicated Usual diet at home unknown Skin Integrity/Comment: Lanre 19, Reddened lower legs (cellulitis) Estimated Nutritional Goals BEE in Kcals: Adj wt of IBW Calories/Kcals/Kg 25-30 kcal/kg (using Adj wt 82 .3kg) Kcals Calculated ~2868-6439 kcal/day Protein: Adj wt of IBW Protein g/k-1.2 gm/kg Protein Calculated ~80-100 gm/day Fluid: ml ~6456-1370 ml/day (1 ml/kcal) Nutritional Problem 1. Problem Problem Altered nutrition related lab values related to Etiology uncontrolled hyperglycemia Signs/Symptoms: aeb glucose 218-293 Intervention/Recommendation Comments 1. Continue 60 gm CCHO diet as tolerated by patient. Educated patient on DM Diet; pt verbalized understanding. 2. MD to continue to modify insulin regimen for optimal glycemic control. 3. F/U in 3-5 days as MR (-) Expected Outcomes/Goals Expected Outcomes/Goals Oral intake >75% of meals, weight stable or trend toward IBW, glucose normalizes
[2018-06-08] MEDS: Lactobacillus Rhamnosus GG 15 Billion CFU CAP.SPRINK PO SCH (17:38)
[2018-06-08] MEDS: cefTRIAXone 2 GM in Sodium Chloride 0.9% 100 ML IV SCH (22:30)
[2018-06-09 05:16] LABS: % BASOPHILS 0.2 % (0.0-2.0); % EOSINOPHILS 1.8 % (0.0-5.0); % LYMPHOCYTES 11.9 % (20.0-50.0); % MONOCYTES 7.8 % (2.0-10.0); % NEUTROPHILS 78.3 % (40.0-80.0); EOSINOPHILE ABSOLUTE 0.1 Th/cmm (0.1-0.4); HEMATOCRIT 41.5 % (41.0-60); HEMOGLOBIN 13.8 gm/dL (12-16); LYMPHOCYTE ABSOLUTE 0.9 Th/cmm (1.5-3.0); MEAN CELL VOLUME 85.7 fl (80-99); MEAN CORPUSCULAR HEMOGLOBIN 28.5 pg (27.0-31.0); MEAN CORPUSCULAR HGB CONC 33.2 pg (28.0-36.0); MEAN PLATELET VOLUME 7.2 fl; MONOCYTE ABSOLUTE 0.6 Th/cmm (0.3-1.0); NEUTROPHILE ABSOLUTE 6.2 Th/cmm (1.8-8.0); PLATELET COUNT 163 Th/cmm (150-400); RED BLOOD COUNT 4.84 Mil/cmm (3.80-5.80); RED CELL DISTRIBUTION WIDTH 14.3 % (11.5-20.0); WHITE BLOOD COUNT 7.8 Th/cmm (4.8-10.8)
[2018-06-09 06:01] LABS: ALBUMIN 3.1 gm/dL (4.2-5.5); ALKALINE PHOSPHATASE 73 U/L (34-104); ANION GAP 11.1 (7.0-16.0); BILIRUBIN,TOTAL 0.4 mg/dL (0.3-1.0); BUN - UREA NITROGEN 64 mg/dL (7-25); CALCIUM SERUM 8.7 mg/dL (8.6-10.3); CARBON DIOXIDE 27.3 mEq/L (21.0-31.0); CHLORIDE 104 mEq/L (98-107); CREATININE - SERUM 1.5 mg/dL (0.7-1.3); GFR AFRICAN-AMERICAN > 60.0 ml/min (>90); GFR NON AFRICAN-AMERICAN 49.8 ml/min; GLUCOSE 182 mg/dL (70-105); POTASSIUM SERUM 4.4 mEq/L (3.5-5.1); SGOT 14 U/L (13-39); SGPT/ALT 17 U/L (7-52); SODIUM SERUM 138 mEq/L (136-145); TOTAL PROTEIN,SERUM 6.1 gm/dL (6.0-8.3)
--- NOTE | 2018-06-09 08:00 | Diagnostic Imaging Report ---
Abdominal ultrasound HISTORY: Lower extremity swelling There is incomplete visualization of what appears to be an enlarged liver. No definite focal lesions are seen. Exam the gallbladder demonstrates intraluminal echogenic densities with acoustic shadowing. Findings are consistent with cholelithiasis. The common bile duct cannot be clearly seen. The pancreas is not well visualized. No focal lesions seen within the right kidney. No hydronephrosis. No focal lesions identified within the left kidney. No hydronephrosis. The spleen is normal in size. No other definite retroperitoneal or intra-abdominal abnormalities. IMPRESSION: 1. Limited exam due to patient's size, body habitus, and bowel gas. 2. Hepatomegaly 3. Findings consistent with cholelithiasis.
--- NOTE | 2018-06-09 08:02 | Diagnostic Imaging Report ---
Pelvic ultrasound HISTORY: Lower extremity swelling The exam demonstrates a rather markedly distended urinary bladder (15 74-mL). No intraluminal abnormalities are seen. There is a marked increase in post void residual (1089 mL). The prostate gland is not clearly outlined. No other obvious pelvic masses or abnormal fluid collections. IMPRESSION: 1. Distended urinary bladder with marked increased postvoid urinary residual (1089 mL). The prostate gland cannot be well visualized.
[2018-06-09] MEDS: INSULIN ASPART SLIDING SCALE 100 UNITS/ML UNIT SUBQ SCH ×2 (08:23→11:30)
[2018-06-09] MEDS: Multivitamin w/ Minerals Tab PO SCH (08:26)
[2018-06-09] MEDS: Lactobacillus Rhamnosus GG 15 Billion CFU CAP.SPRINK PO SCH (08:27)
--- NOTE | 2018-06-09 08:38 | General Progress Note ---
Subjective - Review of Systems Service Date: 06/09/18 Subjective: I am fine Objective - Results Result Diagrams: 06/09/18 04:45 06/09/18 04:45 Recent Labs: Laboratory Last Values WBC 7.8 Th/cmm (4.8-10.8) 06/09/18 04:45 RBC 4.84 Mil/cmm (3.80-5.80) 06/09/18 04:45 Hgb 13.8 gm/dL (12-16) 06/09/18 04:45 Hct 41.5 % (41.0-60) 06/09/18 04:45 MCV 85.7 fl (80-99) 06/09/18 04:45 MCH 28.5 pg (27.0-31.0) 06/09/18 04:45 MCHC Differential 33.2 pg (28.0-36.0) 06/09/18 04:45 RDW 14.3 % (11.5-20.0) 06/09/18 04:45 Plt Count 163 Th/cmm (150-400) 06/09/18 04:45 MPV 7.2 fl 06/09/18 04:45 Add Manual Diff YES 06/06/18 04:43 Neutrophils % 78.3 % (40.0-80.0) 06/09/18 04:45 Band Neutrophils % 0 % (0-10) 06/07/18 05:03 Lymphocytes % 11.9 % (20.0-50.0) L 06/09/18 04:45 Monocytes % 7.8 % (2.0-10.0) 06/09/18 04:45 Eosinophils % 1.8 % (0.0-5.0) 06/09/18 04:45 Basophils % 0.2 % (0.0-2.0) 06/09/18 04:45 Neutrophils (Manual) 88 % (40-80) H 06/07/18 05:03 Lymphocytes 6 % (20-50) L 06/07/18 05:03 Monocytes 4 % (2-10) 06/07/18 05:03 Eosinophils 2 % (0-5) 06/07/18 05:03 Basophils 0 % (0-3) 06/07/18 05:03 Sodium 138 mEq/L (136-145) 06/09/18 04:45 Potassium 4.4 mEq/L (3.5-5.1) 06/09/18 04:45 Chloride 104 mEq/L (98-107) 06/09/18 04:45 Carbon Dioxide 27.3 mEq/L (21.0-31.0) 06/09/18 04:45 Anion Gap 11.1 (7.0-16.0) 06/09/18 04:45 BUN 64 mg/dL (7-25) H 06/09/18 04:45 Creatinine 1.5 mg/dL (0.7-1.3) H 06/09/18 04:45 Est GFR ( Amer) > 60.0 ml/min (>90) 06/09/18 04:45 Est GFR (Non-Af Amer) 49.8 ml/min 06/09/18 04:45 BUN/Creatinine Ratio 42.7 06/09/18 04:45 Glucose 182 mg/dL (70-105) H 06/09/18 04:45 POC Glucose 172 MG/DL (70 - 105) H 06/09/18 06:33 Calcium 8.7 mg/dL (8.6-10.3) 06/09/18 04:45 Phosphorus 4.7 mg/dL (2.5-5.0) 06/05/18 16:00 Magnesium 2.4 mg/dL (1.9-2.7) 06/05/18 16:00 Total Bilirubin 0.4 mg/dL (0.3-1.0) 06/09/18 04:45 AST 14 U/L (13-39) 06/09/18 04:45 ALT 17 U/L (7-52) 06/09/18 04:45 Alkaline Phosphatase 73 U/L (34-104) 06/09/18 04:45 Ammonia 38 umol/L (16-53) 06/05/18 16:00 Total Protein 6.1 gm/dL (6.0-8.3) 06/09/18 04:45 Albumin 3.1 gm/dL (4.2-5.5) L 06/09/18 04:45 Globulin 3.0 gm/dL 06/09/18 04:45 Albumin/Globulin Ratio 1.0 (1.0-1.8) 06/09/18 04:45 TSH 0.99 uIU/ml (0.34-5.60) 06/06/18 04:43 Urine Source CLEAN C 06/05/18 17:30 Urine Color YELLOW 06/05/18 17:30 Urine Clarity CLEAR (CLEAR) 06/05/18 17:30 Urine pH 6.0 (4.6 - 8.0) 06/05/18 17:30 Ur Specific [place] 1.025 (1.005-1.030) 06/05/18 17:30 Urine Protein >=300 mg/dL (NEGATIVE) 06/05/18 17:30 Urine Glucose (UA) 100 mg/dL (NEGATIVE) H 06/05/18 17:30 Urine Ketones NEGATIVE mg/dL (NEGATIVE) 06/05/18 17:30 Urine Blood SMALL (NEGATIVE) H 06/05/18 17:30 Urine Nitrate NEGATIVE (NEGATIVE) 06/05/18 17:30 Urine Bilirubin NEGATIVE (NEGATIVE) 06/05/18 17:30 Urine Urobilinogen 0.2 E.U./dL (0.2 - 1.0) 06/05/18 17:30 Ur Leukocyte Esterase NEGATIVE (NEGATIVE) 06/05/18 17:30 Urine RBC 2-5 /hpf (0-5) H 06/05/18 17:30 Urine WBC 0-2 /hpf (0-5) 06/05/18 17:30 Ur Epithelial Cells FEW /lpf (FEW) 06/05/18 17:30 Urine Bacteria FEW /hpf (NONE SEEN) 06/05/18 17:30 Coarse Granular Casts 0-2 /lpf (NONE SEEN) H 06/05/18 17:30 Stool Occult Blood POSITIVE (NEGATIVE) H 06/05/18 18:00 Vancomycin Trough 16.3 ug/mL (5-10) H 06/08/18 08:00 Urine Opiates Screen NEGATIVE (NEGATIVE) 06/05/18 17:30 Urine Methadone Screen NEGATIVE (NEGATIVE) 06/05/18 17:30 Ur Barbiturates Screen NEGATIVE (NEGATIVE) 06/05/18 17:30 Ur Tricyclics Screen NEGATIVE (NEGATIVE) 06/05/18 17:30 Ur Phencyclidine Scrn NEGATIVE (NEGATIVE) 06/05/18 17:30 Amphetamines Screen NEGATIVE (NEGATIVE) 06/05/18 17:30 U Methamphetamines Scrn NEGATIVE (NEGATIVE) 06/05/18 17:30 U Benzodiazepines Scrn NEGATIVE (NEGATIVE) 06/05/18 17:30 U Cocaine Metab Screen NEGATIVE (NEGATIVE) 06/05/18 17:30 U Cannabinoids Screen NEGATIVE (NEGATIVE) 06/05/18 17:30 - Physical Exam Vitals and I&O: Vital Signs Temp 97.3 F 06/09/18 07:40 Pulse 80 06/09/18 08:27 Resp 19 06/09/18 07:40 BP 140/54 06/09/18 08:27 Pulse Ox 91 06/09/18 07:40 Intake & Output 06/08/18 06/09/18 06/09/18 18:59 06:59 18:59 Intake Total 680 1320 Balance 680 1320 Weight (lbs) 130.181 kg 131.145 kg Intake: Intake, IV Amount 600 Vancomycin HCl 1.5 gm In 500 Sodium Chloride 0.9% 500 ml @ 250 mls/hr IV Q24H [facility] Rx#:[id number] cefTRIAXone 2 gm In 100 Sodium Chloride 0.9% 100 ml @ 100 mls/hr IV Q24H [facility] Rx#:[id number] Oral 680 720 Other: # Voids 4 4 # Bowel Movements 1 Stool Characteristics Formed Brown Weight Source Bedscale Bedscale Active Medications: Current Medications Acetaminophen (Tylenol) 650 mg PO Q4H PRN PRN Reason: PAIN Amlodipine Besylate (Norvasc) 5 mg PO DAILY [facility] Stop: 08/05/18 11:14 Last Admin: 06/09/18 08:26 Dose: 5 mg Carvedilol (Coreg) 25 mg PO BID [facility] Stop: 08/05/18 16:59 Last Admin: 06/09/18 08:27 Dose: 25 mg Finasteride (Proscar) 5 mg PO DAILY [facility]; Protocol Stop: 08/05/18 11:14 Last Admin: 06/09/18 08:27 Dose: 5 mg Furosemide (Lasix) 40 mg PO DAILY [facility] Stop: 08/06/18 08:59 Last Admin: 06/09/18 08:26 Dose: 40 mg Hydrochlorothiazide (Hctz) 25 mg PO DAILY [facility] Stop: 08/05/18 11:14 Last Admin: 06/09/18 08:26 Dose: 25 mg Vancomycin HCl 1.5 gm/ Sodium (Chloride) 500 mls @ 250 mls/hr IV Q24H [facility] Stop: 08/05/18 08:59 Last Infusion: 06/08/18 23:49 Dose: Infused Ceftriaxone Sodium 2 gm/ (Sodium Chloride) 100 mls @ 100 mls/hr IV Q24H [facility] Stop: 08/06/18 21:59 Last Infusion: 06/08/18 23:49 Dose: Infused Insulin Aspart (Novolog Insulin Sliding Scale) 0 units SUBQ ACHS [facility]; Protocol Stop: 08/04/18 20:59 Last Admin: 06/09/18 08:23 Dose: 3 units Isosorbide Dinitrate (Isordil) 20 mg PO BID [facility] Stop: 08/05/18 16:59 Last Admin: 06/09/18 08:27 Dose: 20 mg Lactobacillus Rhamnosus (Culturelle 15b) 1 each PO DAILY [facility] Stop: 08/07/18 13:59 Last Admin: 06/09/18 08:27 Dose: 1 each Miscellaneous (Vancomycin Iv Per Pharmacy) 1 [facility] PRN PRN PRN Reason: PROTOCOL Stop: 08/04/18 20:52 Miscellaneous (Probiotic Screen) 1 ea PRN PRN PRN Reason: PROTOCOL Stop: 08/07/18 10:34 Sennosides (Senna Plus 50 Mg-8.6 Mg) 1 tab PO HS PRN PRN Reason: Constipation Stop: 08/05/18 11:13 Tamsulosin HCl (Flomax) 0.4 mg PO DAILY [facility] Stop: 08/06/18 08:59 Last Admin: 06/09/18 08:26 Dose: 0.4 mg General: Alert, Other (confused) HEENT: Atraumatic Neck: Supple Cardiovascular: Regular rate Lungs: Clear to auscultation Abdomen: Bowel sounds, Soft Extremities: Other (Improving Bilateral redness of lower extremities) Neurological: Other (Unstable gait) Skin: Other (Improving Redness of lower extremities) Psych/Mental Status: Other (Patient is confused) Assessment/Plan - Problem List Patient Problems: All Active Problems WEAKNESS WITH ELEVATED NH3 (Acute) - Assessment Assessment: Patient is awake, alert, confused. Culture was positive for MRSA, sensible to Vanco. Dx : Bilateral cellulites, DM, CHF, CAD, PVD, COPD, Obesity. - Plan Plan: Patient is awake, confused, not oriented. He is in IV NS, IV AB, and SNF meds. Patient was not DC yesterday due to SNF problems, he will be DC today. Nutritional Asmnt/Malnutr-PDOC - Dietary Evaluation Malnutrition Findings (Please click <Entered> for more info): Nutritional Asmnt/Malnutrition Start: 06/06/18 12: 07 Text: Status: Complete Freq: Protocol: Document 06/06/18 12:08 ALICIA (Rec: 06/06/18 12:38 ALICIA CELIA- [email or web address]) Nutritional Asmnt/Malnutrition Patient General Information Nutritional Screening High Risk Diagnosis Cellulitis BLE Pertinent Medical Hx/Surgical Hx CAD, CHF, HTN, anxiety, depression, weakness, chronic renal insufficiency, diabetes, cellulitis Subjective Information Patient was admitted from [facility]. Patient states he has a good appetite, no problems chewing or swallowing, and is tolerating current diet. He likes coffee, bananas, eggs, oatmeal, teixeira, milk, sugar free ice cream and likes to have an evening snack. He states BG is usually controlled. Current Diet Order/ Nutrition Support [address] [facility] / S.O Not Indicated Pertinent Medications lasix, Novolog, abx Pertinent Labs (06/06) BUN 58, Cr 1.6, glucose 218-293, albumin 3.4 Nutritional Hx/Data Height 1.73 m Height (Calculated Centimeters) 172.7 Current Weight (lbs) 119.295 kg Weight (Calculated Kilograms) 119.3 Weight (Calculated Grams) 541045.8 [place] Body Weight 154 % [place] Body Weight 170 Body Mass Index (BMI) 39.9 Recent Weight Change No Weight Status Obese GI Symptoms GI Symptoms None Last BM none noted in EMR Difficult in: None Food Allergies No Cultural/Ethnic/Anglican Belief none indicated Usual diet at home unknown Skin Integrity/Comment: Lanre 19, Reddened lower legs (cellulitis) Estimated Nutritional Goals BEE in Kcals: Adj wt of IBW Calories/Kcals/Kg 25-30 kcal/kg (using Adj wt 82 .3kg) Kcals Calculated ~2561-7242 kcal/day Protein: Adj wt of IBW Protein g/k-1.2 gm/kg Protein Calculated ~80-100 gm/day Fluid: ml ~9737-0334 ml/day (1 ml/kcal) Nutritional Problem 1. Problem Problem Altered nutrition related lab values related to Etiology uncontrolled hyperglycemia Signs/Symptoms: aeb glucose 218-293 Intervention/Recommendation Comments 1. Continue 60 gm CCHO diet as tolerated by patient. Educated patient on DM Diet; pt verbalized understanding. 2. MD to continue to modify insulin regimen for optimal glycemic control. 3. F/U in 3-5 days as MR (-) Expected Outcomes/Goals Expected Outcomes/Goals Oral intake >75% of meals, weight stable or trend toward IBW, glucose normalizes
--- NOTE | 2018-06-09 08:43 | Discharge Summary ---
General Discharge Summary - Discharge Summary Date of Admission: 06/05/18 Discharge Date: 06/09/18 Discharge Diagnosis: Bilateral Cellulitis, DM, CAD, PVD, CHF, COPD, Morbid obesity. Laboratory Findings: Laboratory Results - last 24 hr 06/08/18 06/08/18 06/08/18 08:00 08:00 08:00 WBC 11.4 H RBC 5.01 Hgb 14.6 Hct 43.1 MCV 86.1 MCH 29.1 MCHC Differential 33.8 RDW 14.1 Plt Count 177 MPV 6.9 Neutrophils % 82.3 H Lymphocytes % 10.4 L Monocytes % 6.0 Eosinophils % 0.9 Basophils % 0.4 Sodium 136 Potassium 4.9 Chloride 102 Carbon Dioxide 28.5 Anion Gap 10.4 BUN 66 H Creatinine 1.6 H Est GFR ( Amer) 55.9 Est GFR (Non-Af Amer) 46.2 BUN/Creatinine Ratio 41.3 Glucose 176 H POC Glucose Calcium 8.9 Total Bilirubin 0.5 AST 16 ALT 16 Alkaline Phosphatase 78 Total Protein 6.5 Albumin 3.3 L Globulin 3.2 Albumin/Globulin Ratio 1.0 Vancomycin Trough 16.3 H 06/08/18 06/08/18 06/08/18 11:22 17:21 20:08 WBC RBC Hgb Hct MCV MCH MCHC Differential RDW Plt Count MPV Neutrophils % Lymphocytes % Monocytes % Eosinophils % Basophils % Sodium Potassium Chloride Carbon Dioxide Anion Gap BUN Creatinine Est GFR ( Amer) Est GFR (Non-Af Amer) BUN/Creatinine Ratio Glucose POC Glucose 223 H 244 H 214 H Calcium Total Bilirubin AST ALT Alkaline Phosphatase Total Protein Albumin Globulin Albumin/Globulin Ratio Vancomycin Trough 06/09/18 06/09/18 06/09/18 04:45 04:45 06:33 WBC 7.8 RBC 4.84 Hgb 13.8 Hct 41.5 MCV 85.7 MCH 28.5 MCHC Differential 33.2 RDW 14.3 Plt Count 163 MPV 7.2 Neutrophils % 78.3 Lymphocytes % 11.9 L Monocytes % 7.8 Eosinophils % 1.8 Basophils % 0.2 Sodium 138 Potassium 4.4 Chloride 104 Carbon Dioxide 27.3 Anion Gap 11.1 BUN 64 H Creatinine 1.5 H Est GFR ( Amer) > 60.0 Est GFR (Non-Af Amer) 49.8 BUN/Creatinine Ratio 42.7 Glucose 182 H POC Glucose 172 H Calcium 8.7 Total Bilirubin 0.4 AST 14 ALT 17 Alkaline Phosphatase 73 Total Protein 6.1 Albumin 3.1 L Globulin 3.0 Albumin/Globulin Ratio 1.0 Vancomycin Trough Hospital Course: Patient responded to treatment and IV AB. Cellulitis was resolved. Treatment: IV NS, IV AB, continue with SNF meds, Diabetic diet, [place] sliding scale. Follow by ID Condition at Discharge: Stable Disposition: Discharge/Transfered to SNF Home Medications: Home Medication Medication Instructions Recorded Type Acetaminophen [Tylenol] 650 mg PO Q4H PRN tab 06/08/18 Rx Carvedilol [Coreg] 25 mg PO BID tab 06/08/18 Rx Docusate Sodium/Senna [Senna Plus 1 tab PO HS PRN tab 06/08/18 Rx 50 mg-8.6 mg] Finasteride [Proscar*] 5 mg PO DAILY tab 06/08/18 Rx Furosemide [Lasix] 40 mg PO DAILY tab 06/08/18 Rx Hydrochlorothiazide [Hctz*] 25 mg PO DAILY tab 06/08/18 Rx Insulin Aspart Sliding Scale See Protocol SUBQ ACHS unit 06/08/18 Rx [NovoLOG INSULIN SLIDING SCALE] Isosorbide Dinitrate [Isordil] 20 mg PO BID tab 06/08/18 Rx Lactobacillus Rhamnosus GG 15B 1 each PO DAILY [facility]ink 06/08/18 Rx [Culturelle 15B] Multivitamin w/ Minerals 1 tab PO DAILY tab 06/08/18 Rx [Theragran M] Tamsulosin [Flomax] 0.4 mg PO DAILY cap 06/08/18 Rx amLODIPine Besylate [Norvasc] 5 mg PO DAILY tab 06/08/18 Rx cloNIDine HCl [Catapres] 0.1 mg PO Q8HR PRN tab 06/08/18 Rx Sulfamethoxazole/TMP [Bactrim Ds] 1 tab PO BID 10 Days #20 tab 06/09/18 Rx Inpatient Medications: Current Medications Acetaminophen (Tylenol) 650 mg PO Q4H PRN PRN Reason: PAIN Amlodipine Besylate (Norvasc) 5 mg PO DAILY [facility] Stop: 08/05/18 11:14 Last Admin: 06/09/18 08:26 Dose: 5 mg Carvedilol (Coreg) 25 mg PO BID [facility] Stop: 08/05/18 16:59 Last Admin: 06/09/18 08:27 Dose: 25 mg Finasteride (Proscar) 5 mg PO DAILY [facility]; Protocol Stop: 08/05/18 11:14 Last Admin: 06/09/18 08:27 Dose: 5 mg Furosemide (Lasix) 40 mg PO DAILY [facility] Stop: 08/06/18 08:59 Last Admin: 06/09/18 08:26 Dose: 40 mg Hydrochlorothiazide (Hctz) 25 mg PO DAILY [facility] Stop: 08/05/18 11:14 Last Admin: 06/09/18 08:26 Dose: 25 mg Vancomycin HCl 1.5 gm/ Sodium (Chloride) 500 mls @ 250 mls/hr IV Q24H [facility] Stop: 08/05/18 08:59 Last Infusion: 06/08/18 23:49 Dose: Infused Ceftriaxone Sodium 2 gm/ (Sodium Chloride) 100 mls @ 100 mls/hr IV Q24H [facility] Stop: 08/06/18 21:59 Last Infusion: 06/08/18 23:49 Dose: Infused Insulin Aspart (Novolog Insulin Sliding Scale) 0 units SUBQ ACHS [facility]; Protocol Stop: 08/04/18 20:59 Last Admin: 06/09/18 08:23 Dose: 3 units Isosorbide Dinitrate (Isordil) 20 mg PO BID [facility] Stop: 08/05/18 16:59 Last Admin: 06/09/18 08:27 Dose: 20 mg Lactobacillus Rhamnosus (Culturelle 15b) 1 each PO DAILY [facility] Stop: 08/07/18 13:59 Last Admin: 06/09/18 08:27 Dose: 1 each Miscellaneous (Vancomycin Iv Per Pharmacy) 1 ea [facility] PRN PRN PRN Reason: PROTOCOL Stop: 08/04/18 20:52 Miscellaneous (Probiotic Screen) 1 ea [facility] PRN PRN PRN Reason: PROTOCOL Stop: 08/07/18 10:34 Sennosides (Senna Plus 50 Mg-8.6 Mg) 1 tab PO HS PRN PRN Reason: Constipation Stop: 08/05/18 11:13 Tamsulosin HCl (Flomax) 0.4 mg PO DAILY [facility] Stop: 08/06/18 08:59 Last Admin: 06/09/18 08:26 Dose: 0.4 mg Prescriptions: Sulfamethoxazole/TMP [Bactrim Ds] 1 tab PO BID 10 Days #20 tab Discharge Diet: Cardiac Consults and Follow-Up: Ken Wells [Primary Care Provider] - Consulting Speciality: Other (PCP) Instructions: Cellulitis
--- NOTE | 2018-06-09 10:58 | Diagnostic Imaging Report ---
Bilateral lower extremity Doppler arterial ultrasound exam HISTORY: Swelling Sonographic sector images were obtained through the arterial systems of both legs. Associated Doppler data was obtained. The exam of the right leg demonstrates normal triphasic waveforms within the common femoral, superficial femoral, popliteal, posterior tibial, and dorsalis pedis arteries. Biphasic waveforms noted in the right anterior tibial artery. Slight increase in velocity noted within the right popliteal and posterior tibial arteries. Sonographic images demonstrate mild atherosclerotic plaque. The ankle-brachial index is normal (0.96). The exam of the left leg demonstrates normal triphasic waveforms throughout the entire arterial system. Slight increase in velocity noted within the posterior tibial artery regions. Mild at the chronic changes noted. The ankle-brachial index is normal (0.9). IMPRESSION: 1. Mild bilateral atherosclerotic changes. No significant stenosis or occlusion identified.
== END 2018-06-09 12:02 | DRG 603 ==
LOC: ER 15:38 → MSI 20:30
PROVIDERS: ADMIT General Practice; ATTEND General Practice
DX: L03.116 Cellulitis of left lower limb (principal); Z68.41 Body mass index [BMI] 40.0-44.9, adult; I13.0 Hypertensive heart and chronic kidney disease with heart failure and stage 1 through stage 4 chronic kidney disease, or unspecified chronic kidney disease; L03.115 Cellulitis of right lower limb; I50.9 Heart failure, unspecified; I25.10 Atherosclerotic heart disease of native coronary artery without angina pectoris; J44.9 Chronic obstructive pulmonary disease, unspecified; N40.0 Benign prostatic hyperplasia without lower urinary tract symptoms; L08.9 Local infection of the skin and subcutaneous tissue, unspecified; E11.51 Type 2 diabetes mellitus with diabetic peripheral angiopathy without gangrene; E11.22 Type 2 diabetes mellitus with diabetic chronic kidney disease; F32.9 Major depressive disorder, single episode, unspecified; E66.01 Morbid (severe) obesity due to excess calories; N18.2 Chronic kidney disease, stage 2 (mild); B95.62 Methicillin resistant Staphylococcus aureus infection as the cause of diseases classified elsewhere; Z16.21 Resistance to vancomycin; E78.5 Hyperlipidemia, unspecified; Z89.412 Acquired absence of left great toe; Z79.4 Long term (current) use of insulin; Z89.411 Acquired absence of right great toe
CPT/HCPCS: 36415-UA; 76700-TC; 76856-TC; 80048-TC; 80053-TC; 80202-TC; 80307; 81001-TC; 82140-TC; 82270-TC; 82948-90; 83036-90; 83735-TC; 84100-TC; 84443-TC; 85007-TC; 85025-TC; 87046-90; 87070-90; 93925-TC; J0696; J1815; J2543; J2920; J3370; J7030; J7040; Z7610

== ENCOUNTER 2018-11-05 19:55 | Inpatient (IN) | payer MEDICARE, MEDICAID ==
[2018-11-05] MEDS ORDERED: Sodium Chloride 0.9% 1,000 ML IV ONE (20:22)
--- NOTE | 2018-11-05 20:29 | ED Physician Chart ---
ED Chief Complaint/HPI - Patient Information Date Seen:: 11/05/18 Time Seen:: 20:15 Chief Complaint:: redness and swelling left hand History of Present Illness:: Patient developed redness and swelling of the left index finger 3 days ago which is now extended to the entire left hand. No chills or fever. Allergies:: Allergies Allergy/AdvReac Type Severity Reaction Status Date / Time No Known Allergies Allergy Verified 11/05/18 20:14 Historian:: Patient, EMS Review:: Nurse's Note Reviewed, Transfer documents Reviewed ED Review of Systems - Review of Systems General/Constitutional: No fever, No chills Skin: Skin lesions Head: No headache Eyes: No loss of vision ENT: No earache Neck: No neck pain, No swelling Cardio Vascular: No chest pain, No palpitations Pulmonary: No SOB GI: No nausea, No vomiting, No diarrhea G/U: No dysuria Musculoskeletal: No bone or joint pain, No back pain, No muscle pain Psychiatric: No prior psych history Hematopoietic: No bruising Allergic/Immuno: No urticaria Neurological: No syncope ED Past Medical History - Past Medical History Past Medical History: HTN, DM, CHF, Dyslipidemia, PUD/GERD, Other (status post osteomyelitis) Family History: Diabetes Melitus Social History: Non Smoker, Care Facility, Other (formerly consumed alcohol) Surgical History: other (partial amputation right large toe; amputation left large toe) Psychiatricy History: None Medication: Reviewed Family Medical History - Family Member Mother History Unknown: Yes Father History Unknown: Yes Ethnicity: Non- Living Status: Hx Family Diabetes: Yes ED Physical Exam - Physical Examination General/Constitutional: Awake, Well-developed, well-nourished, Alert, No distress Head: Atraumatic Eyes: Lids, conjuctiva normal, PERRL Other Skin comments:: Left hand: Marked redness and swelling left index finger especially the proximal segment; 1 cm vesicle radial proximal segment left index finger; redness and swelling left hand ENMT: External ears, nose nl, Nasal exam nl, Lips, teeth, gums nl Neck: No nuchal rigidity Respiratory: Nl effort/Exclusion, Clear to Auscultation Cardio Vascular: RRR, No murmur, gallop, rubs GI: No tenderness/rebounding/guarding, No organomegaly, No hernia Other GI comments:: Abdomen protuberant : No CVA tenderness Other Extremities comments:: Partial amputation left large toe; please amputation right large toe; 2.5 out of 4 pretibial pitting edema Neuro/Psych: No focal deficits Misc: Normal back ED Labs/Radiology/EKG Results - Lab Results Results: Laboratory Results WBC 21.5 Th/cmm (4.8-10.8) H* D 11/05/18 20:30 RBC 5.39 Mil/cmm (3.80-5.80) 11/05/18 20:30 Hgb 14.5 gm/dL (12-16) 11/05/18 20:30 Hct 44.6 % (41.0-60) 11/05/18 20:30 MCV 82.8 fl (80-99) 11/05/18 20:30 MCH 26.9 pg (27.0-31.0) L 11/05/18 20:30 MCHC Differential 32.5 pg (28.0-36.0) 11/05/18 20:30 RDW 14.0 % (11.5-20.0) 11/05/18 20:30 Plt Count 166 Th/cmm (150-400) 11/05/18 20:30 MPV 7.7 fl 11/05/18 20:30 Add Manual Diff YES 11/05/18 20:30 Neutrophils % 90.4 % (40.0-80.0) H 11/05/18 20:30 Band Neutrophils % 0 % (0-10) 11/05/18 20:30 Lymphocytes % 4.2 % (20.0-50.0) L 11/05/18 20:30 Monocytes % 4.9 % (2.0-10.0) 11/05/18 20:30 Eosinophils % 0.5 % (0.0-5.0) 11/05/18 20:30 Neutrophils (Manual) 93 % (40-80) H 11/05/18 20:30 Lymphocytes 2 % (20-50) L 11/05/18 20:30 Monocytes 4 % (2-10) 11/05/18 20:30 Eosinophils 1 % (0-5) 11/05/18 20:30 Basophils 0 % (0-3) 11/05/18 20:30 Platelet Estimate ADEQUATE (NORMAL) 11/05/18 20:30 Sodium 133 mEq/L (136-145) L 11/05/18 20:30 Potassium 4.2 mEq/L (3.5-5.1) 11/05/18 20:30 Chloride 94 mEq/L (98-107) L 11/05/18 20:30 Carbon Dioxide 27.8 mEq/L (21.0-31.0) 11/05/18 20:30 Anion Gap 15.4 (7.0-16.0) 11/05/18 20:30 BUN 65 mg/dL (7-25) H 11/05/18 20:30 Creatinine 2.8 mg/dL (0.7-1.3) H 11/05/18 20:30 Est GFR ( Amer) 29.2 ml/min (>90) 11/05/18 20:30 Est GFR (Non-Af Amer) 24.1 ml/min 11/05/18 20:30 BUN/Creatinine Ratio 23.2 11/05/18 20:30 Glucose 302 mg/dL (70-105) H 11/05/18 20:30 Whole Bld Lactic Acid 1.01 mmol/L (0.60-1.99) 11/05/18 20:30 Calcium 8.9 mg/dL (8.6-10.3) 11/05/18 20:30 ED Assessment - Assessment General Assessment: Patient need admission for cellulitis of his left hand which apparently started with his right index finger ED Septic Shock - . Is Septic Shock (SBP<90, OR Lactate>4 mmol\L) present?: No ED Reassessment (Disposition) - Reassessment Reassessment Condition:: Unchanged - Diagnosis Diagnosis:: Cellulitis left hand; diabetes; hyperglycemia; renal insufficiency - Patient Disposition Admitted to:: Med/Surg Spoke to:: Ken Wells Admitting Medical Physician:: Ken Wells Condition at Disposition:: Stable, Unchanged
[2018-11-05 20:40] LABS: MEAN CORPUSCULAR HGB CONC 32.5 pg (28.0-36.0); NEUTROPHILE ABSOLUTE 19.4 Th/cmm (1.8-8.0)
[2018-11-05 20:48] LABS: % EOSINOPHILS 0.5 % (0.0-5.0); % LYMPHOCYTES 4.2 % (20.0-50.0); % MONOCYTES 4.9 % (2.0-10.0); % NEUTROPHILS 90.4 % (40.0-80.0); EOSINOPHILE ABSOLUTE 0.1 Th/cmm (0.1-0.4); HEMATOCRIT 44.6 % (41.0-60); HEMOGLOBIN 14.5 gm/dL (12-16); LYMPHOCYTE ABSOLUTE 0.9 Th/cmm (1.5-3.0); MEAN CELL VOLUME 82.8 fl (80-99); MEAN CORPUSCULAR HEMOGLOBIN 26.9 pg (27.0-31.0); MEAN PLATELET VOLUME 7.7 fl; MONOCYTE ABSOLUTE 1.1 Th/cmm (0.3-1.0); PLATELET COUNT 166 Th/cmm (150-400); RED BLOOD COUNT 5.39 Mil/cmm (3.80-5.80)
[2018-11-05 20:55] LABS: ANION GAP 15.4 (7.0-16.0); CALCIUM SERUM 8.9 mg/dL (8.6-10.3); CARBON DIOXIDE 27.8 mEq/L (21.0-31.0); CREATININE - SERUM 2.8 mg/dL (0.7-1.3); GFR AFRICAN-AMERICAN 29.2 ml/min (>90); GFR NON AFRICAN-AMERICAN 24.1 ml/min; POTASSIUM SERUM 4.2 mEq/L (3.5-5.1)
[2018-11-05 20:58] LABS: WHITE BLOOD COUNT 21.5 Th/cmm (4.8-10.8)
[2018-11-05 21:12] LABS: BAND NEUTROPHILE 0 % (0-10); NEUTROPHILS 93 % (40-80)
[2018-11-05 21:13] LABS: BASOPHIL 0 % (0-3); EOSINOPHIL 1 % (0-5); LYMPHOCYTE 2 % (20-50); MONOCYTE 4 % (2-10); PLATELET ESTIMATE ADEQUATE (NORMAL)
[2018-11-05] MEDS ORDERED: Dextrose 50% 50 mL Abboject IVP PRN (23:06)
[2018-11-05] MEDS ORDERED: GLUCAGON HCl 1 MG KIT IM PRN (23:06)
[2018-11-06] MEDS ORDERED: HYDROmorphone 1 mg/mL 1mL Syr IVP PRN
[2018-11-06] MEDS: INSULIN LISPRO SLIDING SCALE 100 UNITS/ML UNIT SUBQ SCH ×5 (00:01→23:59)
[2018-11-06] MEDS ORDERED: Piperacillin Sodium/Tazobact 2.25 gm Vial IV ONE ×2 (00:35→05:34)
[2018-11-06] MEDS: Sodium Chloride 0.9% 1,000 ML IV SCH ×2 (00:40→12:23)
[2018-11-06 01:30] LABS: URINE SOURCE CLEAN C
[2018-11-06 01:32] LABS: URINE BILIRUBIN NEGATIVE (NEGATIVE); URINE BLOOD MODERATE (NEGATIVE); URINE GLUCOSE (UA) 250 mg/dL (NEGATIVE); URINE KETONE NEGATIVE (NEGATIVE); URINE LEUKOCYTE ESTERASE NEGATIVE (NEGATIVE); URINE MICROSCOPIC INDICATED? YES; URINE NITRATE NEGATIVE (NEGATIVE); URINE PROTEIN >=300 mg/dL (NEGATIVE); URINE UROBILINOGEN 0.2 E.U./dL (0.2 - 1.0)
[2018-11-06 01:38] LABS: URINE CLARITY HAZY (CLEAR); URINE COLOR YELLOW
[2018-11-06 01:41] LABS: URINE BACTERIA FEW /hpf (NONE SEEN); URINE EPITHELIAL CELLS FEW /lpf (FEW)
[2018-11-06 01:42] LABS: URINE HYALINE CAST 0-2 /lpf (0-2)
--- NOTE | 2018-11-06 09:05 | History and Physical ---
History of Present Illness - HPI Chief Complaint: Felling tired and edema of left hand HPI: This a patient that I follow at [facility]. I received a phone call from [facility] stating that patient has been felling tired and more confused, with edema of left hand. Vital Signs: Last Vital Signs Temp 98.0 F 11/06/18 08:00 Pulse 84 11/06/18 08:00 Resp 20 11/06/18 08:00 BP 128/59 11/06/18 08:00 Pulse Ox 95 11/06/18 08:00 Family Medical History - Family Member Mother History Unknown: Yes Father History Unknown: Yes Ethnicity: Non- Living Status: Hx Family Diabetes: Yes Social History Smoke: No Alcohol: None Drugs: None Lives: Longterm Domestic Violence: Negative - Medications Home Medications: Home Medication Medication Instructions Recorded Type Carvedilol [Coreg] 25 mg PO BID tab 06/08/18 Rx Finasteride [Proscar*] 5 mg PO DAILY tab 06/08/18 Rx Furosemide [Lasix] 40 mg PO DAILY tab 06/08/18 Rx Hydrochlorothiazide [Hctz*] 25 mg PO DAILY tab 06/08/18 Rx Insulin Aspart Sliding Scale See Protocol SUBQ ACHS unit 06/08/18 Rx [NovoLOG INSULIN SLIDING SCALE] Isosorbide Dinitrate [Isordil] 20 mg PO BID tab 06/08/18 Rx Multivitamin w/ Minerals 1 tab PO DAILY tab 06/08/18 Rx [Theragran M] amLODIPine Besylate [Norvasc] 5 mg PO DAILY tab 06/08/18 Rx cloNIDine HCl [Catapres] 0.1 mg PO Q8HR PRN tab 06/08/18 Rx Acetaminophen [Tylenol] 650 mg PO Q4H PRN 11/05/18 History Aspirin EC [Ecotrin] 81 mg PO DAILY 11/05/18 History Budesonide/Formoterol Fumarate 2 puff IH BID 11/05/18 History [Symbicort 160-4.5 Mcg Inhaler] Lactobacillus Rhamnosus GG 15B 1 each PO BID 11/05/18 History [Culturelle 15B] Sennosides A and B [Senna] 8.6 mg PO HS 11/05/18 History Tamsulosin [Flomax] 0.4 mg PO QPM 11/05/18 History Tiotropium [place] [Spiriva] 18 mcg INH DAILY 11/05/18 History - Allergies Allergies/Adverse Reactions: Allergies Allergy/AdvReac Type Severity Reaction Status Date / Time No Known Allergies Allergy Verified 11/05/18 20:14 Review of Systems - Review of Systems Constitutional: Report: Weakness Eyes: Report: No Significant ENT: Report: No Significant Respiratory: Report: No Significant Cardiovascular: Report: No Significant Gastrointestinal: Report: No Significant Genitourinary: Report: No Significant Musculoskeletal: Report: No Significant Skin: Report: No Significant Neurological: Report: Weakness Physical Exam - Physical Exam HEENT: Report: Ears Nose Throat within normal limits Neck: Report: Within normal limits Cardiovascular Systems: Report: Regular, Rate and Rhythm Respiratory: Report: Breath Sounds are within normal limits Abdomen: Report: Non-tender to palpation Back: Report: Inspection of back is within normal limits. Extremities: Report: Other (Edema and redness of left hand ) Skin: Report: Warm, Dry Neuro/Psych: Report: Mood affect is within normal limits - Lab Results All Lab Results last 24 hours: Laboratory Results - last 24 hr 11/05/18 11/05/18 11/05/18 20:30 20:30 20:30 WBC 21.5 H* D RBC 5.39 Hgb 14.5 Hct 44.6 MCV 82.8 MCH 26.9 L MCHC Differential 32.5 RDW 14.0 Plt Count 166 MPV 7.7 Add Manual Diff YES Neutrophils % 90.4 H Band Neutrophils % 0 Lymphocytes % 4.2 L Monocytes % 4.9 Eosinophils % 0.5 Neutrophils (Manual) 93 H Lymphocytes 2 L Monocytes 4 Eosinophils 1 Basophils 0 Platelet Estimate ADEQUATE Sodium 133 L Potassium 4.2 Chloride 94 L Carbon Dioxide 27.8 Anion Gap 15.4 BUN 65 H Creatinine 2.8 H Est GFR ( Amer) 29.2 Est GFR (Non-Af Amer) 24.1 BUN/Creatinine Ratio 23.2 Glucose 302 H POC Glucose Whole Bld Lactic Acid 1.01 Calcium 8.9 Urine Source Urine Color Urine Clarity Urine pH Ur Specific [place] Urine Protein Urine Glucose (UA) Urine Ketones Urine Blood Urine Nitrate Urine Bilirubin Urine Urobilinogen Ur Leukocyte Esterase Urine RBC Urine WBC Ur Epithelial Cells Urine Bacteria Hyaline Casts 11/05/18 11/06/18 11/06/18 23:35 01:15 05:28 WBC RBC Hgb Hct MCV MCH MCHC Differential RDW Plt Count MPV Add Manual Diff Neutrophils % Band Neutrophils % Lymphocytes % Monocytes % Eosinophils % Neutrophils (Manual) Lymphocytes Monocytes Eosinophils Basophils Platelet Estimate Sodium Potassium Chloride Carbon Dioxide Anion Gap BUN Creatinine Est GFR ( Amer) Est GFR (Non-Af Amer) BUN/Creatinine Ratio Glucose POC Glucose 237 H 201 H Whole Bld Lactic Acid Calcium Urine Source CLEAN C Urine Color YELLOW Urine Clarity HAZY Urine pH 6.0 Ur Specific [place] 1.025 Urine Protein >=300 Urine Glucose (UA) 250 H Urine Ketones NEGATIVE Urine Blood MODERATE H Urine Nitrate NEGATIVE Urine Bilirubin NEGATIVE Urine Urobilinogen 0.2 Ur Leukocyte Esterase NEGATIVE Urine RBC 5-10 H Urine WBC 2-5 Ur Epithelial Cells FEW Urine Bacteria FEW Hyaline Casts 0-2 H - Assessment Assessment: patient is awake, alert, calm, in no acute distress. Dx: Cellulitis, CRF, DM, HTN, Obesity. - Plan Plan: Patient is in IV NS, IV AB, Pain control, and continue with SNF meds. Consult with ID and Nephro requested.
[2018-11-06] MEDS: Multivitamin w/ Minerals Tab PO SCH (10:50)
[2018-11-06] MEDS: Lactobacillus Rhamnosus GG 15 Billion CFU CAP.SPRINK PO SCH (10:50)
[2018-11-06] MEDS: Hydrocodone/APAP 5mg/325mg Tab PO PRN ×3 (10:52→23:58)
[2018-11-06] MEDS ORDERED: Probiotic Screen MC PRN (16:33)
[2018-11-07] MEDS: Sodium Chloride 0.9% 1,000 ML IV SCH (00:07)
[2018-11-07] MEDS: Hydrocodone/APAP 5mg/325mg Tab PO PRN ×3 (04:39→23:27)
[2018-11-07 06:47] LABS: HEMATOCRIT 37.7 % (41.0-60); HEMOGLOBIN 12.5 gm/dL (12-16); MEAN CELL VOLUME 82.1 fl (80-99); MEAN CORPUSCULAR HEMOGLOBIN 27.2 pg (27.0-31.0); MEAN CORPUSCULAR HGB CONC 33.2 pg (28.0-36.0); PLATELET COUNT 164 Th/cmm (150-400); RED CELL DISTRIBUTION WIDTH 13.6 % (11.5-20.0)
[2018-11-07 06:55] LABS: ALB/GLOB RATIO 0.9 (1.0-1.8); ALBUMIN 2.8 gm/dL (4.2-5.5); ANION GAP 12.1 (7.0-16.0); BILIRUBIN,TOTAL 0.4 mg/dL (0.3-1.0); CALCIUM SERUM 8.2 mg/dL (8.6-10.3); CARBON DIOXIDE 28.2 mEq/L (21.0-31.0); CREATININE - SERUM 2.3 mg/dL (0.7-1.3); GFR AFRICAN-AMERICAN 36.7 ml/min (>90); GFR NON AFRICAN-AMERICAN 30.3 ml/min; MAGNESIUM 2.2 mg/dL (1.9-2.7); PHOSPHOROUS 4.3 mg/dL (2.5-5.0); POTASSIUM SERUM 3.3 mEq/L (3.5-5.1); URIC ACID 9.6 mg/dL (4.4-7.6)
[2018-11-07 06:59] LABS: WHITE BLOOD COUNT 15.8 Th/cmm (4.8-10.8)
[2018-11-07 07:44] LABS: BASOPHIL 1 % (0-3); EOSINOPHIL 1 % (0-5); LYMPHOCYTE 4 % (20-50); MONOCYTE 11 % (2-10); NEUTROPHILS 83 % (40-80); PLATELET ESTIMATE ADEQUATE (NORMAL)
[2018-11-07] MEDS: Albuterol Nebulizer 2.5mg/3mL HHN SCH ×3 (08:53→18:59)
[2018-11-07] MEDS: Budesonide 0.5 Mg/2 mL Ud HHN SCH ×2 (08:53→18:59)
--- NOTE | 2018-11-07 09:22 | Consultation ---
DATE OF CONSULTATION: 11/07/2018 INFECTIOUS DISEASE CONSULTATION REFERRING PHYSICIAN: Dr. Wells. REASON FOR CONSULTATION: Sepsis and left hand cellulitis. HISTORY OF PRESENT ILLNESS: This is a 68-year-old male with a past medical history of hypertension, diabetes mellitus type 2, CHF, dyslipidemia, peptic ulcer disease, status post osteomyelitis, brought in for swelling of the left index finger for last 4 days. The swelling has redness that extended proximally to the dorsum of the left hand. On initial evaluation, the patient's temperature was 97.2 degree Fahrenheit and WBC count was 21,500 with neutrophil 90%. The patient was started on Zosyn and ID consult was called for the antibiotic management. PAST MEDICAL HISTORY: Includes, diabetes mellitus type 2, hypertension, history of osteomyelitis in the past, CHF, dyslipidemia, peptic ulcer disease. ALLERGIES: NKDA. MEDICATIONS: Per medication reconciliation sheet. Antibiotic shore, the patient is receiving Zosyn. SOCIAL HISTORY: The patient lives at nursing facility. No history of smoking. History of drinking alcohol in the past. No drug use. PAST SURGICAL HISTORY: Includes partial amputation right big toe and amputation of left big toe. PSYCHIATRIC HISTORY: None. FAMILY HISTORY: Diabetes mellitus type 2. REVIEW OF SYSTEMS: GENERAL: The patient denies any fever or chills. No weight loss. No generalized weakness. HEENT: The patient denies any diplopia, photophobia, sore throat or congestion. RESPIRATORY: The patient denies any cough or shortness of breath. CARDIOVASCULAR: No chest pain or no palpitation. GASTROINTESTINAL: No nausea, no vomiting, no diarrhea, no constipation. GENITOURINARY: No dysuria. NEUROLOGIC: No headache, no dizziness, no focal weakness. MUSCULOSKELETAL: The patient has ____ red swelling of left hand and index finger. PHYSICAL EXAMINATION: CURRENT VITAL SIGNS: Shows temperature is 97.2 degrees Fahrenheit, pulse 78, respirations 18, blood pressure 121/97. GENERAL: The patient is comfortable lying in bed, in no acute distress. HEENT: Head is normocephalic, atraumatic. Oral cavity moist, pink tongue. Eyes: Pallor is present, no icterus. PERRLA, EOMI. NECK: Supple, no JVD, no bruit. Trachea in midline. CHEST: Bilateral vesicular sounds. No crackles, no wheezing. HEART: S1, S2 within normal limits. Regular rhythm. No murmur, no gallop. ABDOMEN: Soft, nontender, nondistended. Bowel sounds present. EXTREMITIES: No cyanosis, no clubbing, no edema. The patient's left hand: The patient has erythematous swelling of the dorsum of the left hand. On the left index finger, has a yellow discoloration of the skin overlying the proximal phalanx with surrounding erythema and tenderness. The erythema has progressed distally to the skin overlying the middle phalanx and proximally to the dorsum of the left hand. Puncture wound, three attempts to drain pus by small little puncture attempted, only fresh blood came out, no pus noticed. The blood stained fluid was sent for the culture. CENTRAL NERVOUS SYSTEM: Alert, awake, oriented x 3. No focal weakness. LABORATORY DATA: WBC count 21,500, hemoglobin 14.5, hematocrit 44.6, platelets are 166,000, neutrophils 90.4%. Sodium is 133, potassium 4.2, chloride 94, bicarbonate is 27.8, BUN is 65 and creatinine 2.8, and glucose is 302. Urinalysis, moderate blood, RBC 5-10. The blood cultures so far negative. IMPRESSION: 1. Leukocytosis, multifactorial, most likely secondary to sepsis. 2. Left hand cellulitis. 3. Acute kidney injury with creatinine 2.8 with a baseline of 1.5-1.8 noticed in 05/2018. 4. Diabetes mellitus type 2. 5. Hypertension. 6. Obesity with a BMI 33. 7. History of congestive heart failure. 8. Dyslipidemia. RECOMMENDATIONS AND PLAN: We will add vancomycin ____ Zosyn. Monitor creatinine very closely. Check the labs in the morning. Thank you, Dr. Wells, for involving me in taking care of this patient. JOB# [id number]
[2018-11-07] MEDS: Multivitamin w/ Minerals Tab PO SCH (09:23)
[2018-11-07] MEDS: Lactobacillus Rhamnosus GG 15 Billion CFU CAP.SPRINK PO SCH (09:23)
[2018-11-07] MEDS: INSULIN LISPRO SLIDING SCALE 100 UNITS/ML UNIT SUBQ SCH ×4 (09:25→23:18)
--- NOTE | 2018-11-07 09:53 | General Progress Note ---
Subjective - Review of Systems Service Date: 11/07/18 Subjective: I fell better Objective - Results Result Diagrams: 11/07/18 05:50 11/07/18 05:50 Recent Labs: Laboratory Last Values WBC 15.8 Th/cmm (4.8-10.8) H 11/07/18 05:50 RBC 4.60 Mil/cmm (3.80-5.80) 11/07/18 05:50 Hgb 12.5 gm/dL (12-16) 11/07/18 05:50 Hct 37.7 % (41.0-60) L 11/07/18 05:50 MCV 82.1 fl (80-99) 11/07/18 05:50 MCH 27.2 pg (27.0-31.0) 11/07/18 05:50 MCHC Differential 33.2 pg (28.0-36.0) 11/07/18 05:50 RDW 13.6 % (11.5-20.0) 11/07/18 05:50 Plt Count 164 Th/cmm (150-400) 11/07/18 05:50 MPV 8.0 fl 11/07/18 05:50 Add Manual Diff YES 11/07/18 05:50 Neutrophils % 90.4 % (40.0-80.0) H 11/05/18 20:30 Band Neutrophils % 0 % (0-10) 11/05/18 20:30 Lymphocytes % 4.2 % (20.0-50.0) L 11/05/18 20:30 Monocytes % 4.9 % (2.0-10.0) 11/05/18 20:30 Eosinophils % 0.5 % (0.0-5.0) 11/05/18 20:30 Neutrophils (Manual) 83 % (40-80) H 11/07/18 05:50 Lymphocytes 4 % (20-50) L 11/07/18 05:50 Monocytes 11 % (2-10) H 11/07/18 05:50 Eosinophils 1 % (0-5) 11/07/18 05:50 Basophils 1 % (0-3) 11/07/18 05:50 Platelet Estimate ADEQUATE (NORMAL) 11/07/18 05:50 Sodium 134 mEq/L (136-145) L 11/07/18 05:50 Potassium 3.3 mEq/L (3.5-5.1) L 11/07/18 05:50 Chloride 97 mEq/L (98-107) L 11/07/18 05:50 Carbon Dioxide 28.2 mEq/L (21.0-31.0) 11/07/18 05:50 Anion Gap 12.1 (7.0-16.0) 11/07/18 05:50 BUN 65 mg/dL (7-25) H 11/07/18 05:50 Creatinine 2.3 mg/dL (0.7-1.3) H 11/07/18 05:50 Est GFR ( Amer) 36.7 ml/min (>90) 11/07/18 05:50 Est GFR (Non-Af Amer) 30.3 ml/min 11/07/18 05:50 BUN/Creatinine Ratio 28.3 11/07/18 05:50 Glucose 171 mg/dL (70-105) H 11/07/18 05:50 POC Glucose 177 MG/DL (70 - 105) H 11/07/18 05:52 Whole Bld Lactic Acid 0.55 mmol/L (0.60-1.99) L 11/07/18 05:50 Uric Acid 9.6 mg/dL (4.4-7.6) H 11/07/18 05:50 Calcium 8.2 mg/dL (8.6-10.3) L 11/07/18 05:50 Phosphorus 4.3 mg/dL (2.5-5.0) 11/07/18 05:50 Magnesium 2.2 mg/dL (1.9-2.7) 11/07/18 05:50 Total Bilirubin 0.4 mg/dL (0.3-1.0) 11/07/18 05:50 AST 12 U/L (13-39) L 11/07/18 05:50 ALT 11 U/L (7-52) 11/07/18 05:50 Alkaline Phosphatase 85 U/L (34-104) 11/07/18 05:50 Total Protein 6.0 gm/dL (6.0-8.3) 11/07/18 05:50 Albumin 2.8 gm/dL (4.2-5.5) L 11/07/18 05:50 Globulin 3.2 gm/dL 11/07/18 05:50 Albumin/Globulin Ratio 0.9 (1.0-1.8) L 11/07/18 05:50 TSH 1.84 uIU/ml (0.34-5.60) 11/07/18 05:50 Urine Source CLEAN C 11/06/18 01:15 Urine Color YELLOW 11/06/18 01:15 Urine Clarity HAZY (CLEAR) 11/06/18 01:15 Urine pH 6.0 (4.6 - 8.0) 11/06/18 01:15 Ur Specific [place] 1.025 (1.005-1.030) 11/06/18 01:15 Urine Protein >=300 mg/dL (NEGATIVE) 11/06/18 01:15 Urine Glucose (UA) 250 mg/dL (NEGATIVE) H 11/06/18 01:15 Urine Ketones NEGATIVE mg/dL (NEGATIVE) 11/06/18 01:15 Urine Blood MODERATE (NEGATIVE) H 11/06/18 01:15 Urine Nitrate NEGATIVE (NEGATIVE) 11/06/18 01:15 Urine Bilirubin NEGATIVE (NEGATIVE) 11/06/18 01:15 Urine Urobilinogen 0.2 E.U./dL (0.2 - 1.0) 11/06/18 01:15 Ur Leukocyte Esterase NEGATIVE (NEGATIVE) 11/06/18 01:15 Urine RBC 5-10 /hpf (0-5) H 11/06/18 01:15 Urine WBC 2-5 /hpf (0-5) 11/06/18 01:15 Ur Epithelial Cells FEW /lpf (FEW) 11/06/18 01:15 Urine Bacteria FEW /hpf (NONE SEEN) 11/06/18 01:15 Hyaline Casts 0-2 /lpf (0-2) H 11/06/18 01:15 Ur Random Sodium 39 mmol/L 11/07/18 05:00 Urine Creatinine 110.0 mg/dl (39.0-259.0) 11/07/18 05:00 - Physical Exam Vitals and I&O: Vital Signs Temp 97.4 F 11/07/18 08:01 Pulse 72 11/07/18 09:24 Resp 20 11/07/18 09:15 BP 133/66 11/07/18 09:24 Pulse Ox 96 11/07/18 09:15 Intake & Output 11/06/18 11/07/18 11/07/18 18:59 06:59 18:59 Intake Total 504.268 6865.333 Balance 326.178 2086.333 Weight (lbs) 98.711 kg Intake: Intake, IV Amount 920.167 871.333 Piperacillin Sodium/ 100 50 Tazobact 2.25 gm In Sodium Chloride 0.9% 50 ml @ 100 mls/hr IV Q6H [facility] Rx#:[id number] Sodium Chloride 0.9% 1, 820.167 821.333 000 ml @ 70 mls/hr IV . [id number] [facility] Rx#:[id number] Oral 300 Other: # Voids 3 # Bowel Movements 1 Stool Characteristics Soft Soft Weight Source Bedscale Active Medications: Current Medications Acetaminophen (Tylenol) 650 mg PO Q4H PRN PRN Reason: MILD Pain or Fever >101 Stop: 01/05/19 08:50 Acetaminophen/Hydrocodone Bitart (Emblem 5mg/325mg) 1 tab PO Q4H PRN PRN Reason: Pain (Severe) Stop: 01/05/19 09:04 Last Admin: 11/07/18 09:24 Dose: 1 tab Albuterol Sulfate (Albuterol 2.5mg/3ml Neb Ud) 2.5 mg HHN Q6HRT [facility] Stop: 01/05/19 09:29 Last Admin: 11/07/18 08:53 Dose: 2.5 mg Allopurinol (Zyloprim) 75 mg PO DAILY [facility] Stop: 01/06/19 09:59 Amlodipine Besylate (Norvasc) 5 mg PO DAILY [facility] Stop: 01/05/19 08:59 Last Admin: 11/07/18 09:24 Dose: 5 mg Aspirin (Ecotrin) 81 mg PO DAILY [facility] Stop: 01/05/19 08:59 Last Admin: 11/07/18 09:24 Dose: 81 mg Budesonide (Pulmicort) 0.5 mg HHN BIDRT [facility] Stop: 01/05/19 08:59 Last Admin: 11/07/18 08:53 Dose: 0.5 mg Carvedilol (Coreg) 25 mg PO BID [facility] Stop: 01/05/19 08:59 Last Admin: 11/07/18 09:23 Dose: 25 mg Dextrose (D50w) 50 ml IVP PRN PRN PRN Reason: Blood Glucose less than 70 Stop: 01/04/19 23:05 Dextrose (Glutose 40%) 18.75 gm PO PRN PRN PRN Reason: Blood Glucose less than 70 Stop: 01/04/19 23:05 Finasteride (Proscar) 5 mg PO DAILY [facility]; Protocol Stop: 01/05/19 08:59 Last Admin: 11/07/18 09:23 Dose: 5 mg Glucagon (Glucagen) 1 mg IM PRN PRN PRN Reason: Blood Glucose less than 70 Stop: 01/04/19 23:05 Piperacillin Sod/Tazobactam (Sod 2.25 gm/ Sodium Chloride) 50 mls @ 100 mls/hr IV Q6H [facility] Stop: 01/05/19 00:00 Last Admin: 11/07/18 06:17 Dose: 100 mls/hr Sodium Chloride (Nacl 0.9%) 1,000 mls @ 70 mls/hr IV .[id number] [facility] Stop: 01/04/19 22:48 Last Admin: 11/07/18 00:07 Dose: 70 mls/hr Insulin Human Lispro (Humalog Insulin Sliding Scale) 0 units SUBQ Q6HR [facility]; Protocol Stop: 01/05/19 00:00 Last Admin: 11/07/18 09:25 Dose: Not Given Ipratropium [place] (Atrovent Neb 0.5mg/2.5ml) 0.5 mg HHN Q6HRT [facility] Stop: 01/05/19 09:29 Isosorbide Dinitrate (Isordil) 20 mg PO BID [facility] Stop: 01/05/19 08:59 Last Admin: 11/07/18 09:24 Dose: 20 mg Lactobacillus Rhamnosus (Culturelle 15b) 1 each PO DAILY [facility] Stop: 01/05/19 08:59 Last Admin: 11/07/18 09:23 Dose: 1 each Miscellaneous (Probiotic Screen) 1 ea MC PRN PRN PRN Reason: PROTOCOL Stop: 01/05/19 16:32 Miscellaneous (Vancomycin Iv Per Pharmacy) 1 ea MC PRN [facility] Stop: 01/06/19 02:59 Potassium Chloride (Klor-Con) 20 meq PO ONCE [facility] Stop: 01/06/19 09:59 Senna (Senna) 8.6 mg PO HS [facility] Stop: 01/05/19 20:59 Last Admin: 11/06/18 20:27 Dose: 8.6 mg Tamsulosin HCl (Flomax) 0.4 mg PO QPM [facility] Stop: 01/05/19 16:59 Last Admin: 11/06/18 18:04 Dose: 0.4 mg General: Alert, No acute distress HEENT: Atraumatic Cardiovascular: Regular rate Lungs: Clear to auscultation Abdomen: Bowel sounds Extremities: Other (Redness and edema of left hand) Neurological: Normal gait Skin: Other (Redness of left hand) Psych/Mental Status: Mental status NL Assessment/Plan - Assessment Assessment: patient is awake, alert, calm, in no acute distress. Dx: Cellulitis, CRF, DM, HTN, Obesity. - Plan Plan: Patient is in IV NS, IV AB, Pain control, and continue with SNF meds. Consult with ID and Nephro requested. Nutritional Asmnt/Malnutr-PDOC - Dietary Evaluation Malnutrition Findings (Please click <Entered> for more info): Nutritional Asmnt/Malnutrition Start: 11/06/18 16: 24 Text: Status: Complete Freq: Protocol: Document 11/06/18 16:24 LCHENG (Rec: 11/06/18 16:54 LCHENG [email or web address]) Nutritional Asmnt/Malnutrition Patient General Information Nutritional Screening Moderate Risk Diagnosis cellulitis left hand Pertinent Medical Hx/Surgical Hx HTN, DM, CHF, dyslipidemia, PUD/GERD, s/p osteoyelitis, 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 Talked about benefits of [facility] diet but pt was not willing to discuss with dietitian. Current Diet Order/ Nutrition Support [facility] Pertinent Medications humalog, culturelle, piperacillin, nacl 0.9% Pertinent Labs 11/05 Na 133, CL 94, BUN 65, Cr 2.8, Glucose 301, POC 237 11/06 POC 201-223 Nutritional Hx/Data Height 1.73 m Height (Calculated Centimeters) 172.7 Current Weight (lbs) 98.43 kg Weight (Calculated Kilograms) 98.4 Weight (Calculated Grams) 93352.5 [place] Body Weight 148 Body Mass Index (BMI) 33.0 Weight Status Obese GI Symptoms GI Symptoms None Last BM not indicated Difficult in: None Skin Integrity/Comment: intact Estimated Nutritional Goals BEE in Kcals: Adj wt of IBW Calories/Kcals/Kg 23-27 Kcals Calculated 2332-1701 Protein: Adj wt of IBW Protein g/k Protein Calculated 77 Fluid: ml 1771-2078ml (1ml/kcal) Nutritional Problem 1. Problem Problem altered nutrition related labs Etiology hyperglycemia Signs/Symptoms: glucose 302 Malnutrition Alert Is there a minimum of two criteria No selected? Query Text:Check all the applicable criteria. A minimum of two criteria are recommended for diagnosis of either severe or non-severe malnutrition. Malnutrition Related to Morbid Obesity Malnutrition related to morbid obesity No Intervention/Recommendation Comments 1. Continue with [facility] diet as ordered. MD to adjust insulin regimen for optimal glycemic control. 2. Monitor PO intake, wt, labs and skin integrity 3. F/U as moderate risk in 3-5 days Expected Outcomes/Goals Expected Outcomes/Goals 1. PO intake to meet at least 75% of nutritional needs. 2. Wt stability, skin to remain intact, labs to approach WNL.
--- NOTE | 2018-11-07 10:21 | Diagnostic Imaging Report ---
Exam: Chest x-ray. HISTORY: COPD. COMPARISON: None Findings: Frontal examination of chest reviewed, no prior studies available comparison. There is evidence of cardiomegaly superimposed congestion. Left lower lobe infiltrate and effusion. Bony thorax intact. IMPRESSION: Cardiomegaly, congestion. Left basilar infiltrate and effusion. Follow-up exam is recommended.
--- NOTE | 2018-11-07 10:40 | Diagnostic Imaging Report ---
: Renal ultrasound. HISTORY: Acute renal failure. Findings: Real-time ultrasound examination of the kidneys performed multiple planes. The study demonstrates normal echogenicity kidneys bilaterally without obstructive uropathy or nephrolithiasis. Right kidney measures 12.2 x 5.8 x 5.5 cm diameter. Left kidney measures 11.5 x 5.1 x 5.9 cm diameter. The urinary bladder is distended. Patient wasn't able to void spontaneously. IMPRESSION: normal examination of the kidneys. Distended urinary bladder
[2018-11-07] MEDS ORDERED: Potassium Chloride 20 mEq ER Tab PO ONE (11:00)
--- NOTE | 2018-11-07 14:04 | General Progress Note ---
Subjective - Review of Systems Service Date: 11/07/18 Subjective: sleeping, comfortable Objective - Results Result Diagrams: 11/07/18 05:50 11/07/18 05:50 Recent Labs: Laboratory Last Values WBC 15.8 Th/cmm (4.8-10.8) H 11/07/18 05:50 RBC 4.60 Mil/cmm (3.80-5.80) 11/07/18 05:50 Hgb 12.5 gm/dL (12-16) 11/07/18 05:50 Hct 37.7 % (41.0-60) L 11/07/18 05:50 MCV 82.1 fl (80-99) 11/07/18 05:50 MCH 27.2 pg (27.0-31.0) 11/07/18 05:50 MCHC Differential 33.2 pg (28.0-36.0) 11/07/18 05:50 RDW 13.6 % (11.5-20.0) 11/07/18 05:50 Plt Count 164 Th/cmm (150-400) 11/07/18 05:50 MPV 8.0 fl 11/07/18 05:50 Add Manual Diff YES 11/07/18 05:50 Neutrophils % 90.4 % (40.0-80.0) H 11/05/18 20:30 Band Neutrophils % 0 % (0-10) 11/05/18 20:30 Lymphocytes % 4.2 % (20.0-50.0) L 11/05/18 20:30 Monocytes % 4.9 % (2.0-10.0) 11/05/18 20:30 Eosinophils % 0.5 % (0.0-5.0) 11/05/18 20:30 Neutrophils (Manual) 83 % (40-80) H 11/07/18 05:50 Lymphocytes 4 % (20-50) L 11/07/18 05:50 Monocytes 11 % (2-10) H 11/07/18 05:50 Eosinophils 1 % (0-5) 11/07/18 05:50 Basophils 1 % (0-3) 11/07/18 05:50 Platelet Estimate ADEQUATE (NORMAL) 11/07/18 05:50 Sodium 134 mEq/L (136-145) L 11/07/18 05:50 Potassium 3.3 mEq/L (3.5-5.1) L 11/07/18 05:50 Chloride 97 mEq/L (98-107) L 11/07/18 05:50 Carbon Dioxide 28.2 mEq/L (21.0-31.0) 11/07/18 05:50 Anion Gap 12.1 (7.0-16.0) 11/07/18 05:50 BUN 65 mg/dL (7-25) H 11/07/18 05:50 Creatinine 2.3 mg/dL (0.7-1.3) H 11/07/18 05:50 Est GFR ( Amer) 36.7 ml/min (>90) 11/07/18 05:50 Est GFR (Non-Af Amer) 30.3 ml/min 11/07/18 05:50 BUN/Creatinine Ratio 28.3 11/07/18 05:50 Glucose 171 mg/dL (70-105) H 11/07/18 05:50 POC Glucose 236 MG/DL (70 - 105) H 11/07/18 11:23 Whole Bld Lactic Acid 0.55 mmol/L (0.60-1.99) L 11/07/18 05:50 Uric Acid 9.6 mg/dL (4.4-7.6) H 11/07/18 05:50 Calcium 8.2 mg/dL (8.6-10.3) L 11/07/18 05:50 Phosphorus 4.3 mg/dL (2.5-5.0) 11/07/18 05:50 Magnesium 2.2 mg/dL (1.9-2.7) 11/07/18 05:50 Total Bilirubin 0.4 mg/dL (0.3-1.0) 11/07/18 05:50 AST 12 U/L (13-39) L 11/07/18 05:50 ALT 11 U/L (7-52) 11/07/18 05:50 Alkaline Phosphatase 85 U/L (34-104) 11/07/18 05:50 Total Protein 6.0 gm/dL (6.0-8.3) 11/07/18 05:50 Albumin 2.8 gm/dL (4.2-5.5) L 11/07/18 05:50 Globulin 3.2 gm/dL 11/07/18 05:50 Albumin/Globulin Ratio 0.9 (1.0-1.8) L 11/07/18 05:50 TSH 1.84 uIU/ml (0.34-5.60) 11/07/18 05:50 Urine Source CLEAN C 11/06/18 01:15 Urine Color YELLOW 11/06/18 01:15 Urine Clarity HAZY (CLEAR) 11/06/18 01:15 Urine pH 6.0 (4.6 - 8.0) 11/06/18 01:15 Ur Specific [place] 1.025 (1.005-1.030) 11/06/18 01:15 Urine Protein >=300 mg/dL (NEGATIVE) 11/06/18 01:15 Urine Glucose (UA) 250 mg/dL (NEGATIVE) H 11/06/18 01:15 Urine Ketones NEGATIVE mg/dL (NEGATIVE) 11/06/18 01:15 Urine Blood MODERATE (NEGATIVE) H 11/06/18 01:15 Urine Nitrate NEGATIVE (NEGATIVE) 11/06/18 01:15 Urine Bilirubin NEGATIVE (NEGATIVE) 11/06/18 01:15 Urine Urobilinogen 0.2 E.U./dL (0.2 - 1.0) 11/06/18 01:15 Ur Leukocyte Esterase NEGATIVE (NEGATIVE) 11/06/18 01:15 Urine RBC 5-10 /hpf (0-5) H 11/06/18 01:15 Urine WBC 2-5 /hpf (0-5) 11/06/18 01:15 Ur Epithelial Cells FEW /lpf (FEW) 11/06/18 01:15 Urine Bacteria FEW /hpf (NONE SEEN) 11/06/18 01:15 Hyaline Casts 0-2 /lpf (0-2) H 11/06/18 01:15 Ur Random Sodium 39 mmol/L 11/07/18 05:00 Urine Creatinine 110.0 mg/dl (39.0-259.0) 11/07/18 05:00 - Physical Exam Vitals and I&O: Vital Signs Temp 97.4 F 11/07/18 08:01 Pulse 72 11/07/18 09:24 Resp 20 11/07/18 09:15 BP 133/66 11/07/18 09:24 Pulse Ox 96 11/07/18 09:15 Intake & Output 11/06/18 11/07/18 11/07/18 18:59 06:59 18:59 Intake Total 960.872 5548.333 Balance 727.996 1896.333 Weight (lbs) 98.711 kg Intake: Intake, IV Amount 920.167 921.333 Piperacillin Sodium/ 100 100 Tazobact 2.25 gm In Sodium Chloride 0.9% 50 ml @ 100 mls/hr IV Q6H [facility] Rx#:[id number] Sodium Chloride 0.9% 1, 820.167 821.333 000 ml @ 70 mls/hr IV . [id number] [facility] Rx#:[id number] Oral 300 Other: # Voids 3 # Bowel Movements 1 Stool Characteristics Soft Soft Soft Weight Source Bedscale Active Medications: Current Medications Acetaminophen (Tylenol) 650 mg PO Q4H PRN PRN Reason: MILD Pain or Fever >101 Stop: 01/05/19 08:50 Acetaminophen/Hydrocodone Bitart ([place] 5mg/325mg) 1 tab PO Q4H PRN PRN Reason: Pain (Severe) Stop: 01/05/19 09:04 Last Admin: 11/07/18 09:24 Dose: 1 tab Albuterol Sulfate (Albuterol 2.5mg/3ml Neb Ud) 2.5 mg HHN Q6HRT [facility] Stop: 01/05/19 09:29 Last Admin: 11/07/18 08:53 Dose: 2.5 mg Allopurinol (Zyloprim) 100 mg PO DAILY [facility] Stop: 01/06/19 10:59 Last Admin: 11/07/18 10:42 Dose: 100 mg Amlodipine Besylate (Norvasc) 5 mg PO DAILY [facility] Stop: 01/05/19 08:59 Last Admin: 11/07/18 09:24 Dose: 5 mg Aspirin (Ecotrin) 81 mg PO DAILY [facility] Stop: 01/05/19 08:59 Last Admin: 11/07/18 09:24 Dose: 81 mg Budesonide (Pulmicort) 0.5 mg HHN BIDRT [facility] Stop: 01/05/19 08:59 Last Admin: 11/07/18 08:53 Dose: 0.5 mg Carvedilol (Coreg) 25 mg PO BID [facility] Stop: 01/05/19 08:59 Last Admin: 11/07/18 09:23 Dose: 25 mg Dextrose (D50w) 50 ml IVP PRN PRN PRN Reason: Blood Glucose less than 70 Stop: 01/04/19 23:05 Dextrose (Glutose 40%) 18.75 gm PO PRN PRN PRN Reason: Blood Glucose less than 70 Stop: 01/04/19 23:05 Finasteride (Proscar) 5 mg PO DAILY [facility]; Protocol Stop: 01/05/19 08:59 Last Admin: 11/07/18 09:23 Dose: 5 mg Glucagon (Glucagen) 1 mg IM PRN PRN PRN Reason: Blood Glucose less than 70 Stop: 01/04/19 23:05 Piperacillin Sod/Tazobactam (Sod 2.25 gm/ Sodium Chloride) 50 mls @ 100 mls/hr IV Q6H [facility] Stop: 01/05/19 00:00 Last Admin: 11/07/18 11:28 Dose: 100 mls/hr Sodium Chloride (Nacl 0.9%) 1,000 mls @ 70 mls/hr IV .[id number] [facility] Stop: 01/04/19 22:48 Last Admin: 11/07/18 00:07 Dose: 70 mls/hr Vancomycin HCl 1 gm/ Sodium (Chloride) 250 mls @ 165 mls/hr IV Q24H [facility] Stop: 01/07/19 03:59 Insulin Human Lispro (Humalog Insulin Sliding Scale) 0 units SUBQ Q6HR [facility]; Protocol Stop: 01/05/19 00:00 Last Admin: 11/07/18 11:50 Dose: 5 units Ipratropium [place] (Atrovent Neb 0.5mg/2.5ml) 0.5 mg HHN Q6HRT [facility] Stop: 01/05/19 09:29 Isosorbide Dinitrate (Isordil) 20 mg PO BID [facility] Stop: 01/05/19 08:59 Last Admin: 11/07/18 09:24 Dose: 20 mg Lactobacillus Rhamnosus (Culturelle 15b) 1 each PO DAILY [facility] Stop: 01/05/19 08:59 Last Admin: 11/07/18 09:23 Dose: 1 each Miscellaneous (Probiotic Screen) 1 [facility] PRN PRN PRN Reason: PROTOCOL Stop: 01/05/19 16:32 Miscellaneous (Vancomycin Iv Per Pharmacy) 1 [facility] PRN [facility] Stop: 01/06/19 02:59 Senna (Senna) 8.6 mg PO HS [facility] Stop: 01/05/19 20:59 Last Admin: 11/06/18 20:27 Dose: 8.6 mg Tamsulosin HCl (Flomax) 0.4 mg PO QPM [facility] Stop: 01/05/19 16:59 Last Admin: 11/06/18 18:04 Dose: 0.4 mg General: Alert, No acute distress HEENT: Atraumatic, PERRLA, Mucous membr. moist/pink Neck: Supple, +2 carotid pulse wo bruit Cardiovascular: Regular rate, Normal S1, Normal S2 Lungs: Other (rhonchi, decreased BS) Abdomen: Bowel sounds, Soft, Distended Extremities: Edema, Other (Redness and edema of left hand) Neurological: Sensation intact Skin: no Rash Psych/Mental Status: Mental status NL Assessment/Plan - Assessment Assessment: JENY on CKD Left Hand Cellulitis T2DM w/ CKD Morbid Obesity Ess Htn w/ CKD S/P Amputation B/L Ist Digits Distended Urinary Bladder - Plan Plan: Lab - Result Diagrams 11/07/18 05:50 11/07/18 05:50 Current Medications Acetaminophen (Tylenol) 650 mg PO Q4H PRN PRN Reason: MILD Pain or Fever >101 Stop: 01/05/19 08:50 Acetaminophen/Hydrocodone Bitart ([place] 5mg/325mg) 1 tab PO Q4H PRN PRN Reason: Pain (Severe) Stop: 01/05/19 09:04 Last Admin: 11/07/18 09:24 Dose: 1 tab Albuterol Sulfate (Albuterol 2.5mg/3ml Neb Ud) 2.5 mg HHN Q6HRT [facility] Stop: 01/05/19 09:29 Last Admin: 11/07/18 08:53 Dose: 2.5 mg Allopurinol (Zyloprim) 100 mg PO DAILY [facility] Stop: 01/06/19 10:59 Last Admin: 11/07/18 10:42 Dose: 100 mg Amlodipine Besylate (Norvasc) 5 mg PO DAILY [facility] Stop: 01/05/19 08:59 Last Admin: 11/07/18 09:24 Dose: 5 mg Aspirin (Ecotrin) 81 mg PO DAILY [facility] Stop: 01/05/19 08:59 Last Admin: 11/07/18 09:24 Dose: 81 mg Budesonide (Pulmicort) 0.5 mg HHN BIDRT [facility] Stop: 01/05/19 08:59 Last Admin: 11/07/18 08:53 Dose: 0.5 mg Carvedilol (Coreg) 25 mg PO BID [facility] Stop: 01/05/19 08:59 Last Admin: 11/07/18 09:23 Dose: 25 mg Dextrose (D50w) 50 ml IVP PRN PRN PRN Reason: Blood Glucose less than 70 Stop: 01/04/19 23:05 Dextrose (Glutose 40%) 18.75 gm PO PRN PRN PRN Reason: Blood Glucose less than 70 Stop: 01/04/19 23:05 Finasteride (Proscar) 5 mg PO DAILY [facility]; Protocol Stop: 01/05/19 08:59 Last Admin: 11/07/18 09:23 Dose: 5 mg Glucagon (Glucagen) 1 mg IM PRN PRN PRN Reason: Blood Glucose less than 70 Stop: 01/04/19 23:05 Piperacillin Sod/Tazobactam (Sod 2.25 gm/ Sodium Chloride) 50 mls @ 100 mls/hr IV Q6H [facility] Stop: 01/05/19 00:00 Last Admin: 11/07/18 11:28 Dose: 100 mls/hr Sodium Chloride (Nacl 0.9%) 1,000 mls @ 70 mls/hr IV .[id number] [facility] Stop: 01/04/19 22:48 Last Admin: 11/07/18 00:07 Dose: 70 mls/hr Vancomycin HCl 1 gm/ Sodium (Chloride) 250 mls @ 165 mls/hr IV Q24H [facility] Stop: 01/07/19 03:59 Insulin Human Lispro (Humalog Insulin Sliding Scale) 0 units SUBQ Q6HR [facility]; Protocol Stop: 01/05/19 00:00 Last Admin: 11/07/18 11:50 Dose: 5 units Ipratropium [place] (Atrovent Neb 0.5mg/2.5ml) 0.5 mg HHN Q6HRT [facility] Stop: 01/05/19 09:29 Isosorbide Dinitrate (Isordil) 20 mg PO BID [facility] Stop: 01/05/19 08:59 Last Admin: 11/07/18 09:24 Dose: 20 mg Lactobacillus Rhamnosus (Culturelle 15b) 1 each PO DAILY [facility] Stop: 01/05/19 08:59 Last Admin: 11/07/18 09:23 Dose: 1 each Miscellaneous (Probiotic Screen) 1 [facility] PRN PRN PRN Reason: PROTOCOL Stop: 01/05/19 16:32 Miscellaneous (Vancomycin Iv Per Pharmacy) 1 ea PRN [facility] Stop: 01/06/19 02:59 Senna (Senna) 8.6 mg PO HS [facility] Stop: 01/05/19 20:59 Last Admin: 11/06/18 20:27 Dose: 8.6 mg Tamsulosin HCl (Flomax) 0.4 mg PO QPM [facility] Stop: 01/05/19 16:59 Last Admin: 11/06/18 18:04 Dose: 0.4 mg Lab - Result Diagrams 11/07/18 05:50 11/07/18 05:50 Na down to 133 Kidney fnc better w/ CR of 2.3 replace K request bladder US CXR revealed congestion DC Amlodipine due to pretibial edema Nutritional Asmnt/Malnutr-PDOC - Dietary Evaluation Malnutrition Findings (Please click <Entered> for more info): Nutritional Asmnt/Malnutrition Start: 11/06/18 16: 24 Text: Status: Complete Freq: Protocol: Document 11/06/18 16:24 LCHENG (Rec: 11/06/18 16:54 [email or web address] [email or web address]) Nutritional Asmnt/Malnutrition Patient General Information Nutritional Screening Moderate Risk Diagnosis cellulitis left hand Pertinent Medical Hx/Surgical Hx HTN, DM, CHF, dyslipidemia, PUD/GERD, s/p osteoyelitis, 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 Talked about benefits of [facility] diet but pt was not willing to discuss with dietitian. Current Diet Order/ Nutrition Support [facility] Pertinent Medications humalog, culturelle, piperacillin, nacl 0.9% Pertinent Labs 11/05 Na 133, CL 94, BUN 65, Cr 2.8, Glucose 301, POC 237 11/06 POC 201-223 Nutritional Hx/Data Height 1.73 m Height (Calculated Centimeters) 172.7 Current Weight (lbs) 98.43 kg Weight (Calculated Kilograms) 98.4 Weight (Calculated Grams) 35242.5 [place] Body Weight 148 Body Mass Index (BMI) 33.0 Weight Status Obese GI Symptoms GI Symptoms None Last BM not indicated Difficult in: None Skin Integrity/Comment: intact Estimated Nutritional Goals BEE in Kcals: Adj wt of IBW Calories/Kcals/Kg 23-27 Kcals Calculated 1051-3423 Protein: Adj wt of IBW Protein g/k Protein Calculated 77 Fluid: ml 1771-2079ml (1ml/kcal) Nutritional Problem 1. Problem Problem altered nutrition related labs Etiology hyperglycemia Signs/Symptoms: glucose 302 Malnutrition Alert Is there a minimum of two criteria No selected? Query Text:Check all the applicable criteria. A minimum of two criteria are recommended for diagnosis of either severe or non-severe malnutrition. Malnutrition Related to Morbid Obesity Malnutrition related to morbid obesity No Intervention/Recommendation Comments 1. Continue with [facility] diet as ordered. MD to adjust insulin regimen for optimal glycemic control. 2. Monitor PO intake, wt, labs and skin integrity 3. F/U as moderate risk in 3-5 days Expected Outcomes/Goals Expected Outcomes/Goals 1. PO intake to meet at least 75% of nutritional needs. 2. Wt stability, skin to remain intact, labs to approach WNL.
[2018-11-07] MEDS: Ipratropium Neb 0.5 mg/2.5 mL UD HHN SCH ×2 (14:17→19:00)
[2018-11-08] MEDS: Albuterol Nebulizer 2.5mg/3mL HHN SCH ×4 (00:42→20:05)
[2018-11-08] MEDS: Ipratropium Neb 0.5 mg/2.5 mL UD HHN SCH ×4 (00:42→20:04)
--- NOTE | 2018-11-08 02:26 | Consultation ---
DATE OF CONSULTATION: 11/05/2018 ATTENDING: Russell Rogers M.D. RUSH SEATER: Andrea Scott M.D. REASON FOR CONSULTATION: Worsening kidney function, electrolyte imbalance, and fluid management. HISTORY OF PRESENT ILLNESS: This is a 68-year-old male with past medical history of chronic kidney disease, who came in because of worsening left hand edema. Few hours prior to admission, the patient was noted to have erythematous/edematous left hand, which was quite tender. This was associated with easy fatigability and confusion. He had no fever/chills, history of any fall, trauma to his hands nor insect bites. Three months prior to admission, he had a BUN/creatinine of 37/1.46. Two days prior to admission, his BUN/creatinine were 55/2.14. However, his BUN/creatinine today were 65/2.8. He had no nausea and vomiting, no diarrhea. PAST MEDICAL HISTORY: 1. Chronic kidney disease. 2. Benign prostatic hypertrophy. 3. Essential hypertension. 4. Type 2 diabetes mellitus. 5. Morbid obesity. 6. COPD. 7. Dyslipidemia. CURRENT MEDICATIONS: He is currently on acetaminophen and I would like albuterol nebulizer, amlodipine, aspirin, budesonide, carvedilol, finasteride, furosemide, hydrochlorothiazide, hydrocodone/APAP, ipratropium nebulizer, isosorbide dinitrate, lactobacillus, multivitamins, Sennosides A and B, tamsulosin, vancomycin, and Zosyn. ALLERGIES: No known drug allergies. SOCIAL AND FAMILY HISTORY: I was not able to obtain from the patient because he is drowsy at the present time. REVIEW OF SYSTEMS: Again, I was not able to decipher from the patient because of the same reason. PHYSICAL EXAMINATION: GENERAL: The patient is drowsy at the present time, quite obese, not in any form of distress. VITAL SIGNS: Blood pressure is 124/52, pulse is 68, temperature 99 degrees. SKIN: Poor turgor, warm, no rash, no jaundice appreciated. HEENT: Head: Normocephalic, atraumatic. Eyes: Extraocular muscles intact. Pupils equal, round, reactive to light and accommodates. Anicteric sclerae. Mignon conjunctivae. Nose: Midline nasal septum. Mouth: Dry mucosa, adequate dentition. NECK: Supple, no adenopathy, no thyromegaly, no bruits. Trachea palpated in the midline. CHEST AND CARDIOVASCULAR: Distant heart sounds, S1, S2. No rub, murmur nor gallop appreciated. Point of maximal impulse, difficult to assess due to size. LUNGS: Equal expansion. No use of accessory muscles. No supraclavicular retractions. Diminished breath sounds. Clear to auscultation without any wheeze. ABDOMEN: Markedly obese, soft, positive for bowel sounds. No bruits either diastolic or systolic. No pulsatile masses. RECTAL: Deferred. GENITOURINARY: Normal appearing male genitalia. MUSCULOSKELETAL: No effusions present in his joints, but unable to assess his range of motion. EXTREMITIES: No evidence of any edema, cyanosis, nor clubbing. Palpable femoral, but unable to fully appreciate popliteal or dorsalis pedis pulses due to his size. NEUROLOGIC: As mentioned, the patient is drowsy at the present time, so I was not able to pursue further my neuro exam. LABORATORY DATA: Did reveal a white count of 21.5, hemoglobin 14.5, hematocrit 44.6, polys 90.4%, platelets is 166. Sodium of 133, potassium 4.2, chloride 94, BUN 65, creatinine 2.8, glucose 302, calcium 8.9. IMPRESSION: 1. Acute kidney injury on chronic kidney disease, MDRD GFR of 24.1 mL per minute, stage 4. The patient's chronic kidney disease is secondary to longstanding history of diabetes, giving rise to diabetic nephropathy and may also have some underlying hypertensive nephrosclerosis. Acute kidney injury in this instance is prerenal initially. The patient's appetite had diminished. He also is on 2 diuretics. He was not able to replenish his fluid losses. Thus, physical exam revealed poor skin turgor, dry oral mucosa, and a very concentrated urine. These are manifestations of dehydration. His prerenal azotemia eventually progressed to acute tubular injury. 2. Left hand cellulitis. 3. Benign prostatic hypertrophy. 4. Essential hypertension with chronic kidney disease. 5. Type 2 diabetes mellitus with chronic kidney disease. 6. Morbid obesity. 7. Chronic obstructive pulmonary disease. 8. Dyslipidemia. PLAN: 1. Urine sodium, eosinophils, and creatinine. 2. Urine microalbumin to creatinine ratio. 3. Renal ultrasound. 4. Follow up electrolytes, CBC, chest x-ray, hemoglobin A1c, lipid panel and TSH. 5. Discontinue Lasix along with hydrochlorothiazide. 6. Continue on with normal saline at 70 mL per hour. 7. Follow up cultures. 8. Agree with antibiotics. [facility]# [id number]
[2018-11-08] MEDS: Hydrocodone/APAP 5mg/325mg Tab PO PRN ×4 (03:39→19:52)
[2018-11-08] MEDS: INSULIN LISPRO SLIDING SCALE 100 UNITS/ML UNIT SUBQ SCH ×4 (05:10→23:30)
[2018-11-08] MEDS: Budesonide 0.5 Mg/2 mL Ud HHN SCH ×2 (06:29→20:04)
[2018-11-08 06:32] LABS: HEMATOCRIT 40.5 % (41.0-60); HEMOGLOBIN 13.2 gm/dL (12-16); MEAN CORPUSCULAR HGB CONC 32.6 pg (28.0-36.0); MEAN PLATELET VOLUME 7.6 fl; PLATELET COUNT 185 Th/cmm (150-400); RED BLOOD COUNT 4.89 Mil/cmm (3.80-5.80); RED CELL DISTRIBUTION WIDTH 14.2 % (11.5-20.0); WHITE BLOOD COUNT 14.2 Th/cmm (4.8-10.8)
[2018-11-08 06:52] LABS: ALB/GLOB RATIO 0.8 (1.0-1.8); ALBUMIN 2.9 gm/dL (4.2-5.5); ANION GAP 13.3 (7.0-16.0); BILIRUBIN,TOTAL 0.4 mg/dL (0.3-1.0); CALCIUM SERUM 8.6 mg/dL (8.6-10.3); CARBON DIOXIDE 27.1 mEq/L (21.0-31.0); CREATININE - SERUM 2.1 mg/dL (0.7-1.3); GFR AFRICAN-AMERICAN 40.7 ml/min (>90); GFR NON AFRICAN-AMERICAN 33.6 ml/min; POTASSIUM SERUM 3.4 mEq/L (3.5-5.1); TOTAL PROTEIN,SERUM 6.4 gm/dL (6.0-8.3)
[2018-11-08 07:23] LABS: EOSINOPHIL 4 % (0-5); LYMPHOCYTE 6 % (20-50); MONOCYTE 10 % (2-10); NEUTROPHILS 80 % (40-80); PLATELET ESTIMATE ADEQUATE (NORMAL)
[2018-11-08] MEDS: Multivitamin w/ Minerals Tab PO SCH (08:49)
[2018-11-08] MEDS: Lactobacillus Rhamnosus GG 15 Billion CFU CAP.SPRINK PO SCH (08:49)
[2018-11-08] MEDS: Sodium Chloride 0.9% 1,000 ML IV SCH (08:57)
--- NOTE | 2018-11-08 09:52 | Diagnostic Imaging Report ---
Exam: Ultrasound summation urinary bladder. HISTORY: Residual retention Real-time ultrasound examination of the urinary bladder was performed planes. The study demonstrates a distended urinary bladder patient difficult urinating. The postvoid residual is a 90%. The prostate gland is not visualized. IMPRESSION: Distended urinary bladder, large amount of postvoid residual.
--- NOTE | 2018-11-08 12:29 | General Progress Note ---
Subjective - Review of Systems Service Date: 11/08/18 Subjective: I fell better Objective - Results Result Diagrams: 11/08/18 06:05 11/08/18 06:05 Recent Labs: Laboratory Last Values WBC 14.2 Th/cmm (4.8-10.8) H 11/08/18 06:05 RBC 4.89 Mil/cmm (3.80-5.80) 11/08/18 06:05 Hgb 13.2 gm/dL (12-16) 11/08/18 06:05 Hct 40.5 % (41.0-60) L 11/08/18 06:05 MCV 83.0 fl (80-99) 11/08/18 06:05 MCH 27.0 pg (27.0-31.0) 11/08/18 06:05 MCHC Differential 32.6 pg (28.0-36.0) 11/08/18 06:05 RDW 14.2 % (11.5-20.0) 11/08/18 06:05 Plt Count 185 Th/cmm (150-400) 11/08/18 06:05 MPV 7.6 fl 11/08/18 06:05 Add Manual Diff YES 11/08/18 06:05 Neutrophils % 90.4 % (40.0-80.0) H 11/05/18 20:30 Band Neutrophils % 0 % (0-10) 11/05/18 20:30 Lymphocytes % 4.2 % (20.0-50.0) L 11/05/18 20:30 Monocytes % 4.9 % (2.0-10.0) 11/05/18 20:30 Eosinophils % 0.5 % (0.0-5.0) 11/05/18 20:30 Neutrophils (Manual) 80 % (40-80) 11/08/18 06:05 Lymphocytes 6 % (20-50) L 11/08/18 06:05 Monocytes 10 % (2-10) 11/08/18 06:05 Eosinophils 4 % (0-5) 11/08/18 06:05 Basophils 1 % (0-3) 11/07/18 05:50 Platelet Estimate ADEQUATE (NORMAL) 11/08/18 06:05 Sodium 136 mEq/L (136-145) 11/08/18 06:05 Potassium 3.4 mEq/L (3.5-5.1) L 11/08/18 06:05 Chloride 99 mEq/L (98-107) 11/08/18 06:05 Carbon Dioxide 27.1 mEq/L (21.0-31.0) 11/08/18 06:05 Anion Gap 13.3 (7.0-16.0) 11/08/18 06:05 BUN 61 mg/dL (7-25) H 11/08/18 06:05 Creatinine 2.1 mg/dL (0.7-1.3) H 11/08/18 06:05 Est GFR ( Amer) 40.7 ml/min (>90) 11/08/18 06:05 Est GFR (Non-Af Amer) 33.6 ml/min 11/08/18 06:05 BUN/Creatinine Ratio 29.0 11/08/18 06:05 Glucose 193 mg/dL (70-105) H 11/08/18 06:05 POC Glucose 250 MG/DL (70 - 105) H 11/08/18 11:27 Whole Bld Lactic Acid 0.55 mmol/L (0.60-1.99) L 11/07/18 05:50 Uric Acid 9.6 mg/dL (4.4-7.6) H 11/07/18 05:50 Calcium 8.6 mg/dL (8.6-10.3) 11/08/18 06:05 Phosphorus 4.3 mg/dL (2.5-5.0) 11/07/18 05:50 Magnesium 2.2 mg/dL (1.9-2.7) 11/07/18 05:50 Total Bilirubin 0.4 mg/dL (0.3-1.0) 11/08/18 06:05 AST 13 U/L (13-39) 11/08/18 06:05 ALT 13 U/L (7-52) 11/08/18 06:05 Alkaline Phosphatase 91 U/L (34-104) 11/08/18 06:05 Total Protein 6.4 gm/dL (6.0-8.3) 11/08/18 06:05 Albumin 2.9 gm/dL (4.2-5.5) L 11/08/18 06:05 Globulin 3.5 gm/dL 11/08/18 06:05 Albumin/Globulin Ratio 0.8 (1.0-1.8) L 11/08/18 06:05 TSH 1.84 uIU/ml (0.34-5.60) 11/07/18 05:50 Urine Source CLEAN C 11/06/18 01:15 Urine Color YELLOW 11/06/18 01:15 Urine Clarity HAZY (CLEAR) 11/06/18 01:15 Urine pH 6.0 (4.6 - 8.0) 11/06/18 01:15 Ur Specific [place] 1.025 (1.005-1.030) 11/06/18 01:15 Urine Protein >=300 mg/dL (NEGATIVE) 11/06/18 01:15 Urine Glucose (UA) 250 mg/dL (NEGATIVE) H 11/06/18 01:15 Urine Ketones NEGATIVE mg/dL (NEGATIVE) 11/06/18 01:15 Urine Blood MODERATE (NEGATIVE) H 11/06/18 01:15 Urine Nitrate NEGATIVE (NEGATIVE) 11/06/18 01:15 Urine Bilirubin NEGATIVE (NEGATIVE) 11/06/18 01:15 Urine Urobilinogen 0.2 E.U./dL (0.2 - 1.0) 11/06/18 01:15 Ur Leukocyte Esterase NEGATIVE (NEGATIVE) 11/06/18 01:15 Urine RBC 5-10 /hpf (0-5) H 11/06/18 01:15 Urine WBC 2-5 /hpf (0-5) 11/06/18 01:15 Ur Epithelial Cells FEW /lpf (FEW) 11/06/18 01:15 Urine Bacteria FEW /hpf (NONE SEEN) 11/06/18 01:15 Hyaline Casts 0-2 /lpf (0-2) H 11/06/18 01:15 Ur Random Sodium 39 mmol/L 11/07/18 05:00 Urine Creatinine 110.0 mg/dl (39.0-259.0) 11/07/18 05:00 - Physical Exam Vitals and I&O: Vital Signs Temp 97.6 F 11/08/18 12:00 Pulse 72 11/08/18 12:20 Resp 20 11/08/18 12:20 BP 150/73 11/08/18 12:00 Pulse Ox 94 11/08/18 12:20 Intake & Output 0511/08/18 11/08/18 18:59 06:59 18:59 Intake Total 1550 600 Output Total 400 Balance 1550 200 Weight (lbs) 98.711 kg 98.43 kg Intake: Intake, IV Amount 1100 100 Piperacillin Sodium/ 100 100 Tazobact 2.25 gm In Sodium Chloride 0.9% 50 ml @ 100 mls/hr IV Q6H [facility] Rx#:[id number] Sodium Chloride 0.9% 1, 1000 000 ml @ 70 mls/hr IV . [id number] [facility] Rx#:[id number] Oral 450 500 Output: Urine 400 Other: # Voids 4 # Bowel Movements 2 Stool Characteristics Soft Weight Source Bedscale Bedscale Active Medications: Current Medications Acetaminophen (Tylenol) 650 mg PO Q4H PRN PRN Reason: MILD Pain or Fever >101 Stop: 01/05/19 08:50 Last Admin: 11/08/18 01:40 Dose: 650 mg Acetaminophen/Hydrocodone Bitart ([place] 5mg/325mg) 1 tab PO Q4H PRN PRN Reason: Pain (Severe) Stop: 01/05/19 09:04 Last Admin: 11/08/18 08:50 Dose: 1 tab Albuterol Sulfate (Albuterol 2.5mg/3ml Neb Ud) 2.5 mg HHN Q6HRT [facility] Stop: 01/05/19 09:29 Last Admin: 11/08/18 12:15 Dose: 2.5 mg Allopurinol (Zyloprim) 100 mg PO DAILY [facility] Stop: 01/06/19 10:59 Last Admin: 11/08/18 08:51 Dose: 100 mg Aspirin (Ecotrin) 81 mg PO DAILY [facility] Stop: 01/05/19 08:59 Last Admin: 11/08/18 08:51 Dose: 81 mg Budesonide (Pulmicort) 0.5 mg HHN BIDRT [facility] Stop: 01/05/19 08:59 Last Admin: 11/08/18 06:29 Dose: 0.5 mg Carvedilol (Coreg) 25 mg PO BID [facility] Stop: 01/05/19 08:59 Last Admin: 11/08/18 08:50 Dose: 25 mg Dextrose (D50w) 50 ml IVP PRN PRN PRN Reason: Blood Glucose less than 70 Stop: 01/04/19 23:05 Dextrose (Glutose 40%) 18.75 gm PO PRN PRN PRN Reason: Blood Glucose less than 70 Stop: 01/04/19 23:05 Finasteride (Proscar) 5 mg PO DAILY [facility]; Protocol Stop: 01/05/19 08:59 Last Admin: 11/08/18 08:49 Dose: 5 mg Glucagon (Glucagen) 1 mg IM PRN PRN PRN Reason: Blood Glucose less than 70 Stop: 01/04/19 23:05 Piperacillin Sod/Tazobactam (Sod 2.25 gm/ Sodium Chloride) 50 mls @ 100 mls/hr IV Q6H [facility] Stop: 01/05/19 00:00 Last Admin: 11/08/18 10:59 Dose: 100 mls/hr Sodium Chloride (Nacl 0.9%) 1,000 mls @ 70 mls/hr IV .[id number] [facility] Stop: 01/04/19 22:48 Last Admin: 11/08/18 08:57 Dose: 70 mls/hr Vancomycin HCl 1 gm/ Sodium (Chloride) 250 mls @ 165 mls/hr IV Q24H [facility] Stop: 01/07/19 03:59 Last Admin: 11/08/18 03:39 Dose: 165 mls/hr Insulin Human Lispro (Humalog Insulin Sliding Scale) 0 units SUBQ Q6HR [facility]; Protocol Stop: 01/05/19 00:00 Last Admin: 11/08/18 11:45 Dose: 5 units Ipratropium [place] (Atrovent Neb 0.5mg/2.5ml) 0.5 mg HHN Q6HRT [facility] Stop: 01/05/19 09:29 Last Admin: 11/08/18 12:15 Dose: 0.5 mg Isosorbide Dinitrate (Isordil) 20 mg PO BID [facility] Stop: 01/05/19 08:59 Last Admin: 11/08/18 08:50 Dose: 20 mg Lactobacillus Rhamnosus (Culturelle 15b) 1 each PO DAILY [facility] Stop: 01/05/19 08:59 Last Admin: 11/08/18 08:49 Dose: 1 each Miscellaneous (Probiotic Screen) 1 ea PRN PRN PRN Reason: PROTOCOL Stop: 01/05/19 16:32 Miscellaneous (Vancomycin Iv Per Pharmacy) 1 ea PRN [facility] Stop: 01/06/19 02:59 Senna (Senna) 8.6 mg PO HS [facility] Stop: 01/05/19 20:59 Last Admin: 11/07/18 21:24 Dose: 8.6 mg Tamsulosin HCl (Flomax) 0.4 mg PO QPM [facility] Stop: 01/05/19 16:59 Last Admin: 11/07/18 16:57 Dose: 0.4 mg General: Alert, No acute distress HEENT: Atraumatic, PERRLA, Mucous membr. moist/pink Neck: Supple, +2 carotid pulse wo bruit Cardiovascular: Regular rate, Normal S1, Normal S2 Lungs: Other (rhonchi, decreased BS) Abdomen: Bowel sounds, Soft, Distended Extremities: Edema, Other (Redness and edema of left hand) Neurological: Sensation intact Skin: no Rash Psych/Mental Status: Mental status NL Assessment/Plan - Assessment Assessment: patient is awake, alert, calm, in no acute distress. Pelvic US shows diastended bladder. CXR shows PNA. Dx: Cellulitis, PNA, CRF, BPH, DM, HTN, Obesity. - Plan Plan: Patient is in IV NS, IV AB, Pain control, and continue with SNF meds. Doxazosin is introduced. 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 Talked about benefits of [facility] diet but pt was not willing to discuss with dietitian. Current Diet Order/ Nutrition Support [facility] Pertinent Medications humalog, culturelle, piperacillin, nacl 0.9% Pertinent Labs 11/05 Na 133, CL 94, BUN 65, Cr 2.8, Glucose 301, POC 237 11/06 POC 201-223 Nutritional Hx/Data Height 1.73 m Height (Calculated Centimeters) 172.7 Current Weight (lbs) 98.43 kg Weight (Calculated Kilograms) 98.4 Weight (Calculated Grams) 94294.5 [place] Body Weight 148 Body Mass Index (BMI) 33.0 Weight Status Obese GI Symptoms GI Symptoms None Last BM not indicated Difficult in: None Skin Integrity/Comment: intact Estimated Nutritional Goals BEE in Kcals: Adj wt of IBW Calories/Kcals/Kg 23-27 Kcals Calculated 8428-6296 Protein: Adj wt of IBW Protein g/k Protein Calculated 77 Fluid: ml 1771-2079ml (1ml/kcal) Nutritional Problem 1. Problem Problem altered nutrition related labs Etiology hyperglycemia Signs/Symptoms: glucose 302 Malnutrition Alert Is there a minimum of two criteria No selected? Query Text:Check all the applicable criteria. A minimum of two criteria are recommended for diagnosis of either severe or non-severe malnutrition. Malnutrition Related to Morbid Obesity Malnutrition related to morbid obesity No Intervention/Recommendation Comments 1. Continue with [facility] diet as ordered. MD to adjust insulin regimen for optimal glycemic control. 2. Monitor PO intake, wt, labs and skin integrity 3. F/U as moderate risk in 3-5 days Expected Outcomes/Goals Expected Outcomes/Goals 1. PO intake to meet at least 75% of nutritional needs. 2. Wt stability, skin to remain intact, labs to approach WNL.
--- NOTE | 2018-11-08 16:22 | General Progress Note ---
Subjective - Review of Systems Service Date: 11/08/18 Subjective: alert, bladder discomfort w/ increased frequency Objective - Results Result Diagrams: 11/08/18 06:05 11/08/18 06:05 Recent Labs: Laboratory Last Values WBC 14.2 Th/cmm (4.8-10.8) H 11/08/18 06:05 RBC 4.89 Mil/cmm (3.80-5.80) 11/08/18 06:05 Hgb 13.2 gm/dL (12-16) 11/08/18 06:05 Hct 40.5 % (41.0-60) L 11/08/18 06:05 MCV 83.0 fl (80-99) 11/08/18 06:05 MCH 27.0 pg (27.0-31.0) 11/08/18 06:05 MCHC Differential 32.6 pg (28.0-36.0) 11/08/18 06:05 RDW 14.2 % (11.5-20.0) 11/08/18 06:05 Plt Count 185 Th/cmm (150-400) 11/08/18 06:05 MPV 7.6 fl 11/08/18 06:05 Add Manual Diff YES 11/08/18 06:05 Neutrophils % 90.4 % (40.0-80.0) H 11/05/18 20:30 Band Neutrophils % 0 % (0-10) 11/05/18 20:30 Lymphocytes % 4.2 % (20.0-50.0) L 11/05/18 20:30 Monocytes % 4.9 % (2.0-10.0) 11/05/18 20:30 Eosinophils % 0.5 % (0.0-5.0) 11/05/18 20:30 Neutrophils (Manual) 80 % (40-80) 11/08/18 06:05 Lymphocytes 6 % (20-50) L 11/08/18 06:05 Monocytes 10 % (2-10) 11/08/18 06:05 Eosinophils 4 % (0-5) 11/08/18 06:05 Basophils 1 % (0-3) 11/07/18 05:50 Platelet Estimate ADEQUATE (NORMAL) 11/08/18 06:05 Sodium 136 mEq/L (136-145) 11/08/18 06:05 Potassium 3.4 mEq/L (3.5-5.1) L 11/08/18 06:05 Chloride 99 mEq/L (98-107) 11/08/18 06:05 Carbon Dioxide 27.1 mEq/L (21.0-31.0) 11/08/18 06:05 Anion Gap 13.3 (7.0-16.0) 11/08/18 06:05 BUN 61 mg/dL (7-25) H 11/08/18 06:05 Creatinine 2.1 mg/dL (0.7-1.3) H 11/08/18 06:05 Est GFR ( Amer) 40.7 ml/min (>90) 11/08/18 06:05 Est GFR (Non-Af Amer) 33.6 ml/min 11/08/18 06:05 BUN/Creatinine Ratio 29.0 11/08/18 06:05 Glucose 193 mg/dL (70-105) H 11/08/18 06:05 POC Glucose 249 MG/DL (70 - 105) H 11/08/18 16:04 Whole Bld Lactic Acid 0.55 mmol/L (0.60-1.99) L 11/07/18 05:50 Uric Acid 9.6 mg/dL (4.4-7.6) H 11/07/18 05:50 Calcium 8.6 mg/dL (8.6-10.3) 11/08/18 06:05 Phosphorus 4.3 mg/dL (2.5-5.0) 11/07/18 05:50 Magnesium 2.2 mg/dL (1.9-2.7) 11/07/18 05:50 Total Bilirubin 0.4 mg/dL (0.3-1.0) 11/08/18 06:05 AST 13 U/L (13-39) 11/08/18 06:05 ALT 13 U/L (7-52) 11/08/18 06:05 Alkaline Phosphatase 91 U/L (34-104) 11/08/18 06:05 Total Protein 6.4 gm/dL (6.0-8.3) 11/08/18 06:05 Albumin 2.9 gm/dL (4.2-5.5) L 11/08/18 06:05 Globulin 3.5 gm/dL 11/08/18 06:05 Albumin/Globulin Ratio 0.8 (1.0-1.8) L 11/08/18 06:05 TSH 1.84 uIU/ml (0.34-5.60) 11/07/18 05:50 Urine Source CLEAN C 11/06/18 01:15 Urine Color YELLOW 11/06/18 01:15 Urine Clarity HAZY (CLEAR) 11/06/18 01:15 Urine pH 6.0 (4.6 - 8.0) 11/06/18 01:15 Ur Specific [place] 1.025 (1.005-1.030) 11/06/18 01:15 Urine Protein >=300 mg/dL (NEGATIVE) 11/06/18 01:15 Urine Glucose (UA) 250 mg/dL (NEGATIVE) H 11/06/18 01:15 Urine Ketones NEGATIVE mg/dL (NEGATIVE) 11/06/18 01:15 Urine Blood MODERATE (NEGATIVE) H 11/06/18 01:15 Urine Nitrate NEGATIVE (NEGATIVE) 11/06/18 01:15 Urine Bilirubin NEGATIVE (NEGATIVE) 11/06/18 01:15 Urine Urobilinogen 0.2 E.U./dL (0.2 - 1.0) 11/06/18 01:15 Ur Leukocyte Esterase NEGATIVE (NEGATIVE) 11/06/18 01:15 Urine RBC 5-10 /hpf (0-5) H 11/06/18 01:15 Urine WBC 2-5 /hpf (0-5) 11/06/18 01:15 Ur Epithelial Cells FEW /lpf (FEW) 11/06/18 01:15 Urine Bacteria FEW /hpf (NONE SEEN) 11/06/18 01:15 Hyaline Casts 0-2 /lpf (0-2) H 11/06/18 01:15 Ur Random Sodium 39 mmol/L 11/07/18 05:00 Urine Creatinine 110.0 mg/dl (39.0-259.0) 11/07/18 05:00 - Physical Exam Vitals and I&O: Vital Signs Temp 97.4 F 11/08/18 15:52 Pulse 88 11/08/18 15:52 Resp 20 11/08/18 15:52 BP 147/79 11/08/18 15:52 Pulse Ox 95 11/08/18 15:52 Intake & Output 11/07/18 11/08/18 11/08/18 18:59 06:59 18:59 Intake Total 1550 600 Output Total 400 Balance 1550 200 Weight (lbs) 98.711 kg 98.43 kg Intake: Intake, IV Amount 1100 100 Piperacillin Sodium/ 100 100 Tazobact 2.25 gm In Sodium Chloride 0.9% 50 ml @ 100 mls/hr IV Q6H [facility] Rx#:[id number] Sodium Chloride 0.9% 1, 1000 000 ml @ 70 mls/hr IV . [id number] [facility] Rx#:[id number] Oral 450 500 Output: Urine 400 Other: # Voids 4 # Bowel Movements 2 Stool Characteristics Soft Weight Source Bedscale Bedscale Active Medications: Current Medications Acetaminophen (Tylenol) 650 mg PO Q4H PRN PRN Reason: MILD Pain or Fever >101 Stop: 01/05/19 08:50 Last Admin: 11/08/18 01:40 Dose: 650 mg Acetaminophen/Hydrocodone Bitart ([place] 5mg/325mg) 1 tab PO Q4H PRN PRN Reason: Pain (Severe) Stop: 01/05/19 09:04 Last Admin: 11/08/18 15:18 Dose: 1 tab Albuterol Sulfate (Albuterol 2.5mg/3ml Neb Ud) 2.5 mg HHN Q6HRT [facility] Stop: 01/05/19 09:29 Last Admin: 11/08/18 12:15 Dose: 2.5 mg Allopurinol (Zyloprim) 100 mg PO DAILY [facility] Stop: 01/06/19 10:59 Last Admin: 11/08/18 08:51 Dose: 100 mg Aspirin (Ecotrin) 81 mg PO DAILY [facility] Stop: 01/05/19 08:59 Last Admin: 11/08/18 08:51 Dose: 81 mg Budesonide (Pulmicort) 0.5 mg HHN BIDRT [facility] Stop: 01/05/19 08:59 Last Admin: 11/08/18 06:29 Dose: 0.5 mg Carvedilol (Coreg) 25 mg PO BID [facility] Stop: 01/05/19 08:59 Last Admin: 11/08/18 08:50 Dose: 25 mg Dextrose (D50w) 50 ml IVP PRN PRN PRN Reason: Blood Glucose less than 70 Stop: 01/04/19 23:05 Dextrose (Glutose 40%) 18.75 gm PO PRN PRN PRN Reason: Blood Glucose less than 70 Stop: 01/04/19 23:05 Doxazosin Mesylate (Cardura) 2 mg PO DAILY [facility] Stop: 01/07/19 12:44 Last Admin: 11/08/18 12:40 Dose: 2 mg Finasteride (Proscar) 5 mg PO DAILY [facility]; Protocol Stop: 01/05/19 08:59 Last Admin: 11/08/18 08:49 Dose: 5 mg Glucagon (Glucagen) 1 mg IM PRN PRN PRN Reason: Blood Glucose less than 70 Stop: 01/04/19 23:05 Piperacillin Sod/Tazobactam (Sod 2.25 gm/ Sodium Chloride) 50 mls @ 100 mls/hr IV Q6H [facility] Stop: 01/05/19 00:00 Last Admin: 11/08/18 10:59 Dose: 100 mls/hr Sodium Chloride (Nacl 0.9%) 1,000 mls @ 70 mls/hr IV .[id number] [facility] Stop: 01/04/19 22:48 Last Admin: 11/08/18 08:57 Dose: 70 mls/hr Vancomycin HCl 1 gm/ Sodium (Chloride) 250 mls @ 165 mls/hr IV Q24H [facility] Stop: 01/07/19 03:59 Last Admin: 11/08/18 03:39 Dose: 165 mls/hr Insulin Human Lispro (Humalog Insulin Sliding Scale) 0 units SUBQ Q6HR [facility]; Protocol Stop: 01/05/19 00:00 Last Admin: 11/08/18 11:45 Dose: 5 units Ipratropium [place] (Atrovent Neb 0.5mg/2.5ml) 0.5 mg HHN Q6HRT [facility] Stop: 01/05/19 09:29 Last Admin: 11/08/18 12:15 Dose: 0.5 mg Isosorbide Dinitrate (Isordil) 20 mg PO BID [facility] Stop: 01/05/19 08:59 Last Admin: 11/08/18 08:50 Dose: 20 mg Lactobacillus Rhamnosus (Culturelle 15b) 1 each PO DAILY [facility] Stop: 01/05/19 08:59 Last Admin: 11/08/18 08:49 Dose: 1 each Miscellaneous (Probiotic Screen) 1 ea PRN PRN PRN Reason: PROTOCOL Stop: 01/05/19 16:32 Miscellaneous (Vancomycin Iv Per Pharmacy) 1 ea PRN [facility] Stop: 01/06/19 02:59 Senna (Senna) 8.6 mg PO HS [facility] Stop: 01/05/19 20:59 Last Admin: 11/07/18 21:24 Dose: 8.6 mg General: Alert, No acute distress HEENT: Atraumatic, PERRLA, Mucous membr. moist/pink Neck: Supple, +2 carotid pulse wo bruit Cardiovascular: Regular rate, Normal S1, Normal S2 Lungs: Other (rhonchi, decreased BS) Abdomen: Bowel sounds, Soft, Distended Extremities: Edema, Other (Redness and edema of left hand) Neurological: Sensation intact Skin: no Rash Psych/Mental Status: Mental status NL Assessment/Plan - Assessment Assessment: JENY on CKD Left Hand Cellulitis T2DM w/ CKD Morbid Obesity Ess Htn w/ CKD S/P Amputation B/L Ist Digits Distended Urinary Bladder Possible BPH - Plan Plan: Lab - Result Diagrams 11/07/18 05:50 11/07/18 05:50 Current Medications Acetaminophen (Tylenol) 650 mg PO Q4H PRN PRN Reason: MILD Pain or Fever >101 Stop: 01/05/19 08:50 Acetaminophen/Hydrocodone Bitart ([place] 5mg/325mg) 1 tab PO Q4H PRN PRN Reason: Pain (Severe) Stop: 01/05/19 09:04 Last Admin: 11/07/18 09:24 Dose: 1 tab Albuterol Sulfate (Albuterol 2.5mg/3ml Neb Ud) 2.5 mg HHN Q6HRT [facility] Stop: 01/05/19 09:29 Last Admin: 11/07/18 08:53 Dose: 2.5 mg Allopurinol (Zyloprim) 100 mg PO DAILY [facility] Stop: 01/06/19 10:59 Last Admin: 11/07/18 10:42 Dose: 100 mg Amlodipine Besylate (Norvasc) 5 mg PO DAILY [facility] Stop: 01/05/19 08:59 Last Admin: 11/07/18 09:24 Dose: 5 mg Aspirin (Ecotrin) 81 mg PO DAILY [facility] Stop: 01/05/19 08:59 Last Admin: 11/07/18 09:24 Dose: 81 mg Budesonide (Pulmicort) 0.5 mg HHN BIDRT [facility] Stop: 01/05/19 08:59 Last Admin: 11/07/18 08:53 Dose: 0.5 mg Carvedilol (Coreg) 25 mg PO BID [facility] Stop: 01/05/19 08:59 Last Admin: 11/07/18 09:23 Dose: 25 mg Dextrose (D50w) 50 ml IVP PRN PRN PRN Reason: Blood Glucose less than 70 Stop: 01/04/19 23:05 Dextrose (Glutose 40%) 18.75 gm PO PRN PRN PRN Reason: Blood Glucose less than 70 Stop: 01/04/19 23:05 Finasteride (Proscar) 5 mg PO DAILY [facility]; Protocol Stop: 01/05/19 08:59 Last Admin: 11/07/18 09:23 Dose: 5 mg Glucagon (Glucagen) 1 mg IM PRN PRN PRN Reason: Blood Glucose less than 70 Stop: 01/04/19 23:05 Piperacillin Sod/Tazobactam (Sod 2.25 gm/ Sodium Chloride) 50 mls @ 100 mls/hr IV Q6H [facility] Stop: 01/05/19 00:00 Last Admin: 11/07/18 11:28 Dose: 100 mls/hr Sodium Chloride (Nacl 0.9%) 1,000 mls @ 70 mls/hr IV .[id number] [facility] Stop: 01/04/19 22:48 Last Admin: 11/07/18 00:07 Dose: 70 mls/hr Vancomycin HCl 1 gm/ Sodium (Chloride) 250 mls @ 165 mls/hr IV Q24H [facility] Stop: 01/07/19 03:59 Insulin Human Lispro (Humalog Insulin Sliding Scale) 0 units SUBQ Q6HR [facility]; Protocol Stop: 01/05/19 00:00 Last Admin: 11/07/18 11:50 Dose: 5 units Ipratropium [place] (Atrovent Neb 0.5mg/2.5ml) 0.5 mg HHN Q6HRT [facility] Stop: 01/05/19 09:29 Isosorbide Dinitrate (Isordil) 20 mg PO BID [facility] Stop: 01/05/19 08:59 Last Admin: 11/07/18 09:24 Dose: 20 mg Lactobacillus Rhamnosus (Culturelle 15b) 1 each PO DAILY [facility] Stop: 01/05/19 08:59 Last Admin: 11/07/18 09:23 Dose: 1 each Miscellaneous (Probiotic Screen) 1 ea PRN PRN PRN Reason: PROTOCOL Stop: 01/05/19 16:32 Miscellaneous (Vancomycin Iv Per Pharmacy) 1 ea PRN [facility] Stop: 01/06/19 02:59 Senna (Senna) 8.6 mg PO HS [facility] Stop: 01/05/19 20:59 Last Admin: 11/06/18 20:27 Dose: 8.6 mg Tamsulosin HCl (Flomax) 0.4 mg PO QPM [facility] Stop: 01/05/19 16:59 Last Admin: 11/06/18 18:04 Dose: 0.4 mg Lab - Result Diagrams 11/08/18 06:05 11/08/18 06:05 Na up to 136 Kidney fnc better w/ CR of 2.1 replace K Bladder & renal US revealed distended bladder has increased urinary frequency w/ small amount of urine & bladder discomfort agreed for Metzger cath CXR revealed congestion DC Amlodipine due to pretibial edema Nutritional Asmnt/Malnutr-PDOC - Dietary Evaluation Malnutrition Findings (Please click <Entered> for more info): Nutritional Asmnt/Malnutrition Start: 11/06/18 16: 24 Text: Status: Complete Freq: Protocol: Document 11/06/18 16:24 LCHENG (Rec: 11/06/18 16:54 LCHENG [email or web address]) Nutritional Asmnt/Malnutrition Patient General Information Nutritional Screening Moderate Risk Diagnosis cellulitis left hand Pertinent Medical Hx/Surgical Hx HTN, DM, CHF, dyslipidemia, PUD/GERD, s/p osteoyelitis, 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 Talked about benefits of [facility] diet but pt was not willing to discuss with dietitian. Current Diet Order/ Nutrition Support [facility] Pertinent Medications humalog, culturelle, piperacillin, nacl 0.9% Pertinent Labs 11/05 Na 133, CL 94, BUN 65, Cr 2.8, Glucose 301, POC 237 11/06 POC 201-223 Nutritional Hx/Data Height 1.73 m Height (Calculated Centimeters) 172.7 Current Weight (lbs) 98.43 kg Weight (Calculated Kilograms) 98.4 Weight (Calculated Grams) 48064.5 [place] Body Weight 148 Body Mass Index (BMI) 33.0 Weight Status Obese GI Symptoms GI Symptoms None Last BM not indicated Difficult in: None Skin Integrity/Comment: intact Estimated Nutritional Goals BEE in Kcals: Adj wt of IBW Calories/Kcals/Kg 23-27 Kcals Calculated 5588-9770 Protein: Adj wt of IBW Protein g/k Protein Calculated 77 Fluid: ml 1771-2079ml (1ml/kcal) Nutritional Problem 1. Problem Problem altered nutrition related labs Etiology hyperglycemia Signs/Symptoms: glucose 302 Malnutrition Alert Is there a minimum of two criteria No selected? Query Text:Check all the applicable criteria. A minimum of two criteria are recommended for diagnosis of either severe or non-severe malnutrition. Malnutrition Related to Morbid Obesity Malnutrition related to morbid obesity No Intervention/Recommendation Comments 1. Continue with CCHO diet as ordered. MD to adjust insulin regimen for optimal glycemic control. 2. Monitor PO intake, wt, labs and skin integrity 3. F/U as moderate risk in 3-5 days Expected Outcomes/Goals Expected Outcomes/Goals 1. PO intake to meet at least 75% of nutritional needs. 2. Wt stability, skin to remain intact, labs to approach WNL.
[2018-11-08] MEDS ORDERED: Potassium Chloride 20 mEq ER Tab PO ONE (16:23)
[2018-11-08 17:16] LABS: EOSINOPHIL SMEAR SOURCE URINE; EOSINOPHILS SMEAR COUNT FEW EOSINOPHILS SEEN (NONE SEEN)
[2018-11-09] MEDS: Sodium Chloride 0.9% 1,000 ML IV SCH (03:22)
[2018-11-09] MEDS: Hydrocodone/APAP 5mg/325mg Tab PO PRN (03:39)
[2018-11-09 05:18] LABS: % BASOPHILS 0.5 % (0.0-2.0); % EOSINOPHILS 1.3 % (0.0-5.0); % MONOCYTES 5.3 % (2.0-10.0); % NEUTROPHILS 86.9 % (40.0-80.0); BASOPHILE ABSOLUTE 0.1 Th/cumm (0-0.2); EOSINOPHILE ABSOLUTE 0.2 Th/cmm (0.1-0.4); HEMATOCRIT 38.9 % (41.0-60); HEMOGLOBIN 12.7 gm/dL (12-16); LYMPHOCYTE ABSOLUTE 0.8 Th/cmm (1.5-3.0); MEAN CELL VOLUME 83.3 fl (80-99); MEAN CORPUSCULAR HEMOGLOBIN 27.3 pg (27.0-31.0); MEAN CORPUSCULAR HGB CONC 32.8 pg (28.0-36.0); MEAN PLATELET VOLUME 7.6 fl; MONOCYTE ABSOLUTE 0.7 Th/cmm (0.3-1.0); NEUTROPHILE ABSOLUTE 10.8 Th/cmm (1.8-8.0); PLATELET COUNT 189 Th/cmm (150-400); RED BLOOD COUNT 4.67 Mil/cmm (3.80-5.80); RED CELL DISTRIBUTION WIDTH 13.7 % (11.5-20.0); WHITE BLOOD COUNT 12.6 Th/cmm (4.8-10.8)
[2018-11-09 05:47] LABS: ALB/GLOB RATIO 0.9 (1.0-1.8); ALBUMIN 2.8 gm/dL (4.2-5.5); ANION GAP 12.4 (7.0-16.0); BILIRUBIN,TOTAL 0.3 mg/dL (0.3-1.0); CALCIUM SERUM 8.5 mg/dL (8.6-10.3); CARBON DIOXIDE 26.3 mEq/L (21.0-31.0); GFR AFRICAN-AMERICAN 43.1 ml/min (>90); GFR NON AFRICAN-AMERICAN 35.6 ml/min; MAGNESIUM 2.3 mg/dL (1.9-2.7); POTASSIUM SERUM 3.7 mEq/L (3.5-5.1); TOTAL PROTEIN,SERUM 6.1 gm/dL (6.0-8.3)
[2018-11-09] MEDS: INSULIN LISPRO SLIDING SCALE 100 UNITS/ML UNIT SUBQ SCH ×4 (05:50→23:49)
[2018-11-09 06:49] LABS: LYMPHOCYTE 7 % (20-50); NEUTROPHILS 88 % (40-80)
[2018-11-09 06:50] LABS: MONOCYTE 5 % (2-10)
[2018-11-09] MEDS: Budesonide 0.5 Mg/2 mL Ud HHN SCH ×2 (07:20→19:19)
[2018-11-09] MEDS: Ipratropium Neb 0.5 mg/2.5 mL UD HHN SCH ×3 (07:21→19:19)
[2018-11-09] MEDS: Albuterol Nebulizer 2.5mg/3mL HHN SCH ×3 (07:21→19:18)
--- NOTE | 2018-11-09 08:35 | General Progress Note ---
Subjective - Review of Systems Service Date: 11/09/18 Subjective: I am ok Objective - Results Result Diagrams: 11/09/18 04:35 11/09/18 04:35 Recent Labs: Laboratory Last Values WBC 12.6 Th/cmm (4.8-10.8) H 11/09/18 04:35 RBC 4.67 Mil/cmm (3.80-5.80) 11/09/18 04:35 Hgb 12.7 gm/dL (12-16) 11/09/18 04:35 Hct 38.9 % (41.0-60) L 11/09/18 04:35 MCV 83.3 fl (80-99) 11/09/18 04:35 MCH 27.3 pg (27.0-31.0) 11/09/18 04:35 MCHC Differential 32.8 pg (28.0-36.0) 11/09/18 04:35 RDW 13.7 % (11.5-20.0) 11/09/18 04:35 Plt Count 189 Th/cmm (150-400) 11/09/18 04:35 MPV 7.6 fl 11/09/18 04:35 Add Manual Diff YES 11/08/18 06:05 Neutrophils % 86.9 % (40.0-80.0) H 11/09/18 04:35 Band Neutrophils % 0 % (0-10) 11/05/18 20:30 Lymphocytes % 6.0 % (20.0-50.0) L 11/09/18 04:35 Monocytes % 5.3 % (2.0-10.0) 11/09/18 04:35 Eosinophils % 1.3 % (0.0-5.0) 11/09/18 04:35 Basophils % 0.5 % (0.0-2.0) 11/09/18 04:35 Neutrophils (Manual) 88 % (40-80) H 11/09/18 04:35 Lymphocytes 7 % (20-50) L 11/09/18 04:35 Monocytes 5 % (2-10) 11/09/18 04:35 Eosinophils 4 % (0-5) 11/08/18 06:05 Basophils 1 % (0-3) 11/07/18 05:50 Platelet Estimate ADEQUATE (NORMAL) 11/08/18 06:05 Eos Smear Source URINE 11/08/18 14:55 Eos Smear Total Cells FEW EOSINOPHILS SEEN (NONE SEEN) 11/08/18 14:55 Sodium 137 mEq/L (136-145) 11/09/18 04:35 Potassium 3.7 mEq/L (3.5-5.1) 11/09/18 04:35 Chloride 102 mEq/L (98-107) 11/09/18 04:35 Carbon Dioxide 26.3 mEq/L (21.0-31.0) 11/09/18 04:35 Anion Gap 12.4 (7.0-16.0) 11/09/18 04:35 BUN 56 mg/dL (7-25) H 11/09/18 04:35 Creatinine 2.0 mg/dL (0.7-1.3) H 11/09/18 04:35 Est GFR ( Amer) 43.1 ml/min (>90) 11/09/18 04:35 Est GFR (Non-Af Amer) 35.6 ml/min 11/09/18 04:35 BUN/Creatinine Ratio 28.0 11/09/18 04:35 Glucose 201 mg/dL (70-105) H 11/09/18 04:35 POC Glucose 183 MG/DL (70 - 105) H 11/09/18 05:48 Whole Bld Lactic Acid 0.55 mmol/L (0.60-1.99) L 11/07/18 05:50 Uric Acid 9.6 mg/dL (4.4-7.6) H 11/07/18 05:50 Calcium 8.5 mg/dL (8.6-10.3) L 11/09/18 04:35 Phosphorus 4.3 mg/dL (2.5-5.0) 11/07/18 05:50 Magnesium 2.3 mg/dL (1.9-2.7) 11/09/18 04:35 Total Bilirubin 0.3 mg/dL (0.3-1.0) 11/09/18 04:35 AST 13 U/L (13-39) 11/09/18 04:35 ALT 16 U/L (7-52) 11/09/18 04:35 Alkaline Phosphatase 92 U/L (34-104) 11/09/18 04:35 Total Protein 6.1 gm/dL (6.0-8.3) 11/09/18 04:35 Albumin 2.8 gm/dL (4.2-5.5) L 11/09/18 04:35 Globulin 3.3 gm/dL 11/09/18 04:35 Albumin/Globulin Ratio 0.9 (1.0-1.8) L 11/09/18 04:35 TSH 1.84 uIU/ml (0.34-5.60) 11/07/18 05:50 Urine Source CLEAN C 11/06/18 01:15 Urine Color YELLOW 11/06/18 01:15 Urine Clarity HAZY (CLEAR) 11/06/18 01:15 Urine pH 6.0 (4.6 - 8.0) 11/06/18 01:15 Ur Specific [place] 1.025 (1.005-1.030) 11/06/18 01:15 Urine Protein >=300 mg/dL (NEGATIVE) 11/06/18 01:15 Urine Glucose (UA) 250 mg/dL (NEGATIVE) H 11/06/18 01:15 Urine Ketones NEGATIVE mg/dL (NEGATIVE) 11/06/18 01:15 Urine Blood MODERATE (NEGATIVE) H 11/06/18 01:15 Urine Nitrate NEGATIVE (NEGATIVE) 11/06/18 01:15 Urine Bilirubin NEGATIVE (NEGATIVE) 11/06/18 01:15 Urine Urobilinogen 0.2 E.U./dL (0.2 - 1.0) 11/06/18 01:15 Ur Leukocyte Esterase NEGATIVE (NEGATIVE) 11/06/18 01:15 Urine RBC 5-10 /hpf (0-5) H 11/06/18 01:15 Urine WBC 2-5 /hpf (0-5) 11/06/18 01:15 Ur Epithelial Cells FEW /lpf (FEW) 11/06/18 01:15 Urine Bacteria FEW /hpf (NONE SEEN) 11/06/18 01:15 Hyaline Casts 0-2 /lpf (0-2) H 11/06/18 01:15 Ur Random Sodium 39 mmol/L 11/07/18 05:00 Urine Creatinine 110.0 mg/dl (39.0-259.0) 11/07/18 05:00 Microalb/Creat Ratio 2816.8 mg/g creat (0.0-30.0) H 11/08/18 14:55 - Physical Exam Vitals and I&O: Vital Signs Temp 98.4 F 11/09/18 07:45 Pulse 74 11/09/18 07:45 Resp 19 11/09/18 07:45 BP 114/83 11/09/18 07:45 Pulse Ox 94 11/09/18 07:45 Intake & Output 11/08/18 11/09/18 11/09/18 18:59 06:59 18:59 Intake Total 700 1050 700 Output Total 2200 1200 Balance -1500 1050 -500 Weight (lbs) 98.43 kg 98.43 kg Intake: Intake, IV Amount 100 1050 Piperacillin Sodium/ 100 50 Tazobact 2.25 gm In Sodium Chloride 0.9% 50 ml @ 100 mls/hr IV Q6H [facility] Rx#:[id number] Sodium Chloride 0.9% 1, 1000 000 ml @ 70 mls/hr IV . [id number] [facility] Rx#:[id number] Oral 600 700 Output: Urine 2200 1200 Stool 0 Other: # Voids 4 Weight Source Bedscale Bedscale Active Medications: Current Medications Acetaminophen (Tylenol) 650 mg PO Q4H PRN PRN Reason: MILD Pain or Fever >101 Stop: 01/05/19 08:50 Last Admin: 11/08/18 01:40 Dose: 650 mg Acetaminophen/Hydrocodone Bitart ([place] 5mg/325mg) 1 tab PO Q4H PRN PRN Reason: Pain (Severe) Stop: 01/05/19 09:04 Last Admin: 11/09/18 03:39 Dose: 1 tab Albuterol Sulfate (Albuterol 2.5mg/3ml Neb Ud) 2.5 mg HHN Q6HRT [facility] Stop: 01/05/19 09:29 Last Admin: 11/09/18 07:21 Dose: Not Given Allopurinol (Zyloprim) 100 mg PO DAILY [facility] Stop: 01/06/19 10:59 Last Admin: 11/08/18 08:51 Dose: 100 mg Aspirin (Ecotrin) 81 mg PO DAILY [facility] Stop: 01/05/19 08:59 Last Admin: 11/08/18 08:51 Dose: 81 mg Budesonide (Pulmicort) 0.5 mg HHN BIDRT [facility] Stop: 01/05/19 08:59 Last Admin: 11/09/18 07:20 Dose: Not Given Carvedilol (Coreg) 25 mg PO BID [facility] Stop: 01/05/19 08:59 Last Admin: 11/08/18 17:09 Dose: 25 mg Dextrose (D50w) 50 ml IVP PRN PRN PRN Reason: Blood Glucose less than 70 Stop: 01/04/19 23:05 Dextrose (Glutose 40%) 18.75 gm PO PRN PRN PRN Reason: Blood Glucose less than 70 Stop: 01/04/19 23:05 Doxazosin Mesylate (Cardura) 2 mg PO DAILY [facility] Stop: 01/07/19 12:44 Last Admin: 11/08/18 12:40 Dose: 2 mg Finasteride (Proscar) 5 mg PO DAILY [facility]; Protocol Stop: 01/05/19 08:59 Last Admin: 11/08/18 08:49 Dose: 5 mg Glucagon (Glucagen) 1 mg IM PRN PRN PRN Reason: Blood Glucose less than 70 Stop: 01/04/19 23:05 Piperacillin Sod/Tazobactam (Sod 2.25 gm/ Sodium Chloride) 50 mls @ 100 mls/hr IV Q6H [facility] Stop: 01/05/19 00:00 Last Admin: 11/09/18 05:49 Dose: 100 mls/hr Sodium Chloride (Nacl 0.9%) 1,000 mls @ 70 mls/hr IV .[id number] [facility] Stop: 01/04/19 22:48 Last Admin: 11/09/18 03:22 Dose: 70 mls/hr Vancomycin HCl 1 gm/ Sodium (Chloride) 250 mls @ 165 mls/hr IV Q24H [facility] Stop: 01/07/19 03:59 Last Admin: 11/09/18 03:19 Dose: 165 mls/hr Insulin Human Lispro (Humalog Insulin Sliding Scale) 0 units SUBQ Q6HR [facility]; Protocol Stop: 01/05/19 00:00 Last Admin: 11/09/18 05:50 Dose: 3 units Ipratropium [place] (Atrovent Neb 0.5mg/2.5ml) 0.5 mg HHN Q6HRT [facility] Stop: 01/05/19 09:29 Last Admin: 11/09/18 07:21 Dose: Not Given Isosorbide Dinitrate (Isordil) 20 mg PO BID [facility] Stop: 01/05/19 08:59 Last Admin: 11/08/18 17:08 Dose: 20 mg Lactobacillus Rhamnosus (Culturelle 15b) 1 each PO DAILY [facility] Stop: 01/05/19 08:59 Last Admin: 11/08/18 08:49 Dose: 1 each Miscellaneous (Probiotic Screen) 1 [facility] PRN PRN PRN Reason: PROTOCOL Stop: 01/05/19 16:32 Miscellaneous (Vancomycin Iv Per Pharmacy) 1 ea PRN [facility] Stop: 01/06/19 02:59 Senna (Senna) 8.6 mg PO HS [facility] Stop: 01/05/19 20:59 Last Admin: 11/08/18 21:15 Dose: 8.6 mg General: Alert, No acute distress HEENT: Atraumatic, PERRLA, Mucous membr. moist/pink Neck: Supple, +2 carotid pulse wo bruit Cardiovascular: Regular rate, Normal S1, Normal S2 Lungs: Other (rhonchi, decreased BS) Abdomen: Bowel sounds, Soft, Distended Extremities: Edema, Other (Redness and edema of left hand) Neurological: Sensation intact Skin: no Rash Psych/Mental Status: Mental status NL Assessment/Plan - Assessment Assessment: patient is awake, alert, calm, in no acute distress. Pelvic US shows diastended bladder, win was inserted. CXR shows PNA. Dx: Cellulitis, PNA, CRF, BPH, DM, HTN, Obesity. - Plan Plan: Patient is in IV NS, IV AB, Pain control, and continue with SNF meds. Doxazosin is introduced. Follow by ID and Nephro. 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 Talked about benefits of [facility] diet but pt was not willing to discuss with dietitian. Current Diet Order/ Nutrition Support [facility] Pertinent Medications humalog, culturelle, piperacillin, nacl 0.9% Pertinent Labs 11/05 Na 133, CL 94, BUN 65, Cr 2.8, Glucose 301, POC 237 11/06 POC 201-223 Nutritional Hx/Data Height 1.73 m Height (Calculated Centimeters) 172.7 Current Weight (lbs) 98.43 kg Weight (Calculated Kilograms) 98.4 Weight (Calculated Grams) 18251.5 [place] Body Weight 148 Body Mass Index (BMI) 33.0 Weight Status Obese GI Symptoms GI Symptoms None Last BM not indicated Difficult in: None Skin Integrity/Comment: intact Estimated Nutritional Goals BEE in Kcals: Adj wt of IBW Calories/Kcals/Kg 23-27 Kcals Calculated 6278-6671 Protein: Adj wt of IBW Protein g/k Protein Calculated 77 Fluid: ml 1771-2079ml (1ml/kcal) Nutritional Problem 1. Problem Problem altered nutrition related labs Etiology hyperglycemia Signs/Symptoms: glucose 302 Malnutrition Alert Is there a minimum of two criteria No selected? Query Text:Check all the applicable criteria. A minimum of two criteria are recommended for diagnosis of either severe or non-severe malnutrition. Malnutrition Related to Morbid Obesity Malnutrition related to morbid obesity No Intervention/Recommendation Comments 1. Continue with [facility] diet as ordered. MD to adjust insulin regimen for optimal glycemic control. 2. Monitor PO intake, wt, labs and skin integrity 3. F/U as moderate risk in 3-5 days Expected Outcomes/Goals Expected Outcomes/Goals 1. PO intake to meet at least 75% of nutritional needs. 2. Wt stability, skin to remain intact, labs to approach WNL.
[2018-11-09] MEDS: Lactobacillus Rhamnosus GG 15 Billion CFU CAP.SPRINK PO SCH (09:29)
[2018-11-09] MEDS: Multivitamin w/ Minerals Tab PO SCH (09:29)
--- NOTE | 2018-11-09 13:39 | General Progress Note ---
Subjective - Review of Systems Service Date: 11/09/18 Subjective: alert, irritated Objective - Results Result Diagrams: 11/09/18 04:35 11/09/18 04:35 Recent Labs: Laboratory Last Values WBC 12.6 Th/cmm (4.8-10.8) H 11/09/18 04:35 RBC 4.67 Mil/cmm (3.80-5.80) 11/09/18 04:35 Hgb 12.7 gm/dL (12-16) 11/09/18 04:35 Hct 38.9 % (41.0-60) L 11/09/18 04:35 MCV 83.3 fl (80-99) 11/09/18 04:35 MCH 27.3 pg (27.0-31.0) 11/09/18 04:35 MCHC Differential 32.8 pg (28.0-36.0) 11/09/18 04:35 RDW 13.7 % (11.5-20.0) 11/09/18 04:35 Plt Count 189 Th/cmm (150-400) 11/09/18 04:35 MPV 7.6 fl 11/09/18 04:35 Add Manual Diff YES 11/08/18 06:05 Neutrophils % 86.9 % (40.0-80.0) H 11/09/18 04:35 Band Neutrophils % 0 % (0-10) 11/05/18 20:30 Lymphocytes % 6.0 % (20.0-50.0) L 11/09/18 04:35 Monocytes % 5.3 % (2.0-10.0) 11/09/18 04:35 Eosinophils % 1.3 % (0.0-5.0) 11/09/18 04:35 Basophils % 0.5 % (0.0-2.0) 11/09/18 04:35 Neutrophils (Manual) 88 % (40-80) H 11/09/18 04:35 Lymphocytes 7 % (20-50) L 11/09/18 04:35 Monocytes 5 % (2-10) 11/09/18 04:35 Eosinophils 4 % (0-5) 11/08/18 06:05 Basophils 1 % (0-3) 11/07/18 05:50 Platelet Estimate ADEQUATE (NORMAL) 11/08/18 06:05 Eos Smear Source URINE 11/08/18 14:55 Eos Smear Total Cells FEW EOSINOPHILS SEEN (NONE SEEN) 11/08/18 14:55 Sodium 137 mEq/L (136-145) 11/09/18 04:35 Potassium 3.7 mEq/L (3.5-5.1) 11/09/18 04:35 Chloride 102 mEq/L (98-107) 11/09/18 04:35 Carbon Dioxide 26.3 mEq/L (21.0-31.0) 11/09/18 04:35 Anion Gap 12.4 (7.0-16.0) 11/09/18 04:35 BUN 56 mg/dL (7-25) H 11/09/18 04:35 Creatinine 2.0 mg/dL (0.7-1.3) H 11/09/18 04:35 Est GFR ( Amer) 43.1 ml/min (>90) 11/09/18 04:35 Est GFR (Non-Af Amer) 35.6 ml/min 11/09/18 04:35 BUN/Creatinine Ratio 28.0 11/09/18 04:35 Glucose 201 mg/dL (70-105) H 11/09/18 04:35 POC Glucose 213 MG/DL (70 - 105) H 11/09/18 11:41 Whole Bld Lactic Acid 0.55 mmol/L (0.60-1.99) L 11/07/18 05:50 Uric Acid 9.6 mg/dL (4.4-7.6) H 11/07/18 05:50 Calcium 8.5 mg/dL (8.6-10.3) L 11/09/18 04:35 Phosphorus 4.3 mg/dL (2.5-5.0) 11/07/18 05:50 Magnesium 2.3 mg/dL (1.9-2.7) 11/09/18 04:35 Total Bilirubin 0.3 mg/dL (0.3-1.0) 11/09/18 04:35 AST 13 U/L (13-39) 11/09/18 04:35 ALT 16 U/L (7-52) 11/09/18 04:35 Alkaline Phosphatase 92 U/L (34-104) 11/09/18 04:35 Total Protein 6.1 gm/dL (6.0-8.3) 11/09/18 04:35 Albumin 2.8 gm/dL (4.2-5.5) L 11/09/18 04:35 Globulin 3.3 gm/dL 11/09/18 04:35 Albumin/Globulin Ratio 0.9 (1.0-1.8) L 11/09/18 04:35 TSH 1.84 uIU/ml (0.34-5.60) 11/07/18 05:50 Urine Source CLEAN C 11/06/18 01:15 Urine Color YELLOW 11/06/18 01:15 Urine Clarity HAZY (CLEAR) 11/06/18 01:15 Urine pH 6.0 (4.6 - 8.0) 11/06/18 01:15 Ur Specific [place] 1.025 (1.005-1.030) 11/06/18 01:15 Urine Protein >=300 mg/dL (NEGATIVE) 11/06/18 01:15 Urine Glucose (UA) 250 mg/dL (NEGATIVE) H 11/06/18 01:15 Urine Ketones NEGATIVE mg/dL (NEGATIVE) 11/06/18 01:15 Urine Blood MODERATE (NEGATIVE) H 11/06/18 01:15 Urine Nitrate NEGATIVE (NEGATIVE) 11/06/18 01:15 Urine Bilirubin NEGATIVE (NEGATIVE) 11/06/18 01:15 Urine Urobilinogen 0.2 E.U./dL (0.2 - 1.0) 11/06/18 01:15 Ur Leukocyte Esterase NEGATIVE (NEGATIVE) 11/06/18 01:15 Urine RBC 5-10 /hpf (0-5) H 11/06/18 01:15 Urine WBC 2-5 /hpf (0-5) 11/06/18 01:15 Ur Epithelial Cells FEW /lpf (FEW) 11/06/18 01:15 Urine Bacteria FEW /hpf (NONE SEEN) 11/06/18 01:15 Hyaline Casts 0-2 /lpf (0-2) H 11/06/18 01:15 Ur Random Sodium 39 mmol/L 11/07/18 05:00 Urine Creatinine 110.0 mg/dl (39.0-259.0) 11/07/18 05:00 Microalb/Creat Ratio 2816.8 mg/g creat (0.0-30.0) H 11/08/18 14:55 - Physical Exam Vitals and I&O: Vital Signs Temp 99 F 11/09/18 11:48 Pulse 86 11/09/18 13:01 Resp 18 11/09/18 13:01 BP 183/87 11/09/18 11:48 Pulse Ox 93 11/09/18 13:01 Intake & Output 11/08/18 11/09/18 11/09/18 18:59 06:59 18:59 Intake Total 700 1100 700 Output Total 2200 1200 Balance -1500 1100 -500 Weight (lbs) 98.43 kg 98.43 kg Intake: Intake, IV Amount 100 1100 Piperacillin Sodium/ 100 100 Tazobact 2.25 gm In Sodium Chloride 0.9% 50 ml @ 100 mls/hr IV Q6H [facility] Rx#:[id number] Sodium Chloride 0.9% 1, 1000 000 ml @ 70 mls/hr IV . [id number] [facility] Rx#:[id number] Oral 600 700 Output: Urine 2200 1200 Stool 0 Other: # Voids 4 Weight Source Bedscale Bedscale Active Medications: Current Medications Acetaminophen (Tylenol) 650 mg PO Q4H PRN PRN Reason: MILD Pain or Fever >101 Stop: 01/05/19 08:50 Last Admin: 11/09/18 12:15 Dose: 650 mg Acetaminophen/Hydrocodone Bitart ([place] 5mg/325mg) 1 tab PO Q4H PRN PRN Reason: Pain (Severe) Stop: 01/05/19 09:04 Last Admin: 11/09/18 03:39 Dose: 1 tab Albuterol Sulfate (Albuterol 2.5mg/3ml Neb Ud) 2.5 mg HHN Q6HRT [facility] Stop: 01/05/19 09:29 Last Admin: 11/09/18 13:00 Dose: 2.5 mg Allopurinol (Zyloprim) 100 mg PO DAILY [facility] Stop: 01/06/19 10:59 Last Admin: 11/09/18 09:29 Dose: 100 mg Aspirin (Ecotrin) 81 mg PO DAILY [facility] Stop: 01/05/19 08:59 Last Admin: 11/09/18 09:29 Dose: 81 mg Budesonide (Pulmicort) 0.5 mg HHN BIDRT [facility] Stop: 01/05/19 08:59 Last Admin: 11/09/18 07:20 Dose: Not Given Carvedilol (Coreg) 25 mg PO BID [facility] Stop: 01/05/19 08:59 Last Admin: 11/09/18 11:37 Dose: 25 mg Dextrose (D50w) 50 ml IVP PRN PRN PRN Reason: Blood Glucose less than 70 Stop: 01/04/19 23:05 Dextrose (Glutose 40%) 18.75 gm PO PRN PRN PRN Reason: Blood Glucose less than 70 Stop: 01/04/19 23:05 Doxazosin Mesylate (Cardura) 2 mg PO DAILY [facility] Stop: 01/07/19 12:44 Last Admin: 11/09/18 09:24 Dose: Not Given Finasteride (Proscar) 5 mg PO DAILY [facility]; Protocol Stop: 01/05/19 08:59 Last Admin: 11/09/18 09:29 Dose: 5 mg Glucagon (Glucagen) 1 mg IM PRN PRN PRN Reason: Blood Glucose less than 70 Stop: 01/04/19 23:05 Piperacillin Sod/Tazobactam (Sod 2.25 gm/ Sodium Chloride) 50 mls @ 100 mls/hr IV Q6H [facility] Stop: 01/05/19 00:00 Last Admin: 11/09/18 12:15 Dose: 100 mls/hr Sodium Chloride (Nacl 0.9%) 1,000 mls @ 70 mls/hr IV .[id number] [facility] Stop: 01/04/19 22:48 Last Admin: 11/09/18 03:22 Dose: 70 mls/hr Vancomycin HCl 1 gm/ Sodium (Chloride) 250 mls @ 165 mls/hr IV Q24H [facility] Stop: 01/07/19 03:59 Last Admin: 11/09/18 03:19 Dose: 165 mls/hr Insulin Human Lispro (Humalog Insulin Sliding Scale) 0 units SUBQ Q6HR [facility]; Protocol Stop: 01/05/19 00:00 Last Admin: 11/09/18 11:43 Dose: 5 units Ipratropium [place] (Atrovent Neb 0.5mg/2.5ml) 0.5 mg HHN Q6HRT [facility] Stop: 01/05/19 09:29 Last Admin: 11/09/18 13:00 Dose: 0.5 mg Isosorbide Dinitrate (Isordil) 20 mg PO BID [facility] Stop: 01/05/19 08:59 Last Admin: 11/09/18 11:37 Dose: 20 mg Lactobacillus Rhamnosus (Culturelle 15b) 1 each PO DAILY [facility] Stop: 01/05/19 08:59 Last Admin: 11/09/18 09:29 Dose: 1 each Miscellaneous (Probiotic Screen) 1 ea PRN PRN PRN Reason: PROTOCOL Stop: 01/05/19 16:32 Miscellaneous (Vancomycin Iv Per Pharmacy) 1 ea PRN [facility] Stop: 01/06/19 02:59 Senna (Senna) 8.6 mg PO HS [facility] Stop: 01/05/19 20:59 Last Admin: 11/08/18 21:15 Dose: 8.6 mg General: Alert, No acute distress HEENT: Atraumatic, PERRLA, Mucous membr. moist/pink Neck: Supple, +2 carotid pulse wo bruit Cardiovascular: Regular rate, Normal S1, Normal S2 Lungs: Other (rhonchi, decreased BS) Abdomen: Bowel sounds, Soft, Distended Extremities: Edema, Other (Redness and edema of left hand) Neurological: Sensation intact Skin: no Rash Psych/Mental Status: Mental status NL Assessment/Plan - Assessment Assessment: JENY on CKD Left Hand Cellulitis T2DM w/ CKD Morbid Obesity Ess Htn w/ CKD S/P Amputation B/L Ist Digits Distended Urinary Bladder 2/2 Urinary Retention Possible BPH - Plan Plan: Lab - Result Diagrams 11/07/18 05:50 11/07/18 05:50 Current Medications Acetaminophen (Tylenol) 650 mg PO Q4H PRN PRN Reason: MILD Pain or Fever >101 Stop: 01/05/19 08:50 Acetaminophen/Hydrocodone Bitart ([place] 5mg/325mg) 1 tab PO Q4H PRN PRN Reason: Pain (Severe) Stop: 01/05/19 09:04 Last Admin: 11/07/18 09:24 Dose: 1 tab Albuterol Sulfate (Albuterol 2.5mg/3ml Neb Ud) 2.5 mg HHN Q6HRT [facility] Stop: 01/05/19 09:29 Last Admin: 11/07/18 08:53 Dose: 2.5 mg Allopurinol (Zyloprim) 100 mg PO DAILY [facility] Stop: 01/06/19 10:59 Last Admin: 11/07/18 10:42 Dose: 100 mg Amlodipine Besylate (Norvasc) 5 mg PO DAILY [facility] Stop: 01/05/19 08:59 Last Admin: 11/07/18 09:24 Dose: 5 mg Aspirin (Ecotrin) 81 mg PO DAILY [facility] Stop: 01/05/19 08:59 Last Admin: 11/07/18 09:24 Dose: 81 mg Budesonide (Pulmicort) 0.5 mg HHN BIDRT [facility] Stop: 01/05/19 08:59 Last Admin: 11/07/18 08:53 Dose: 0.5 mg Carvedilol (Coreg) 25 mg PO BID [facility] Stop: 01/05/19 08:59 Last Admin: 11/07/18 09:23 Dose: 25 mg Dextrose (D50w) 50 ml IVP PRN PRN PRN Reason: Blood Glucose less than 70 Stop: 01/04/19 23:05 Dextrose (Glutose 40%) 18.75 gm PO PRN PRN PRN Reason: Blood Glucose less than 70 Stop: 01/04/19 23:05 Finasteride (Proscar) 5 mg PO DAILY [facility]; Protocol Stop: 01/05/19 08:59 Last Admin: 11/07/18 09:23 Dose: 5 mg Glucagon (Glucagen) 1 mg IM PRN PRN PRN Reason: Blood Glucose less than 70 Stop: 01/04/19 23:05 Piperacillin Sod/Tazobactam (Sod 2.25 gm/ Sodium Chloride) 50 mls @ 100 mls/hr IV Q6H [facility] Stop: 01/05/19 00:00 Last Admin: 11/07/18 11:28 Dose: 100 mls/hr Sodium Chloride (Nacl 0.9%) 1,000 mls @ 70 mls/hr IV .[id number] [facility] Stop: 01/04/19 22:48 Last Admin: 11/07/18 00:07 Dose: 70 mls/hr Vancomycin HCl 1 gm/ Sodium (Chloride) 250 mls @ 165 mls/hr IV Q24H [facility] Stop: 01/07/19 03:59 Insulin Human Lispro (Humalog Insulin Sliding Scale) 0 units SUBQ Q6HR [facility]; Protocol Stop: 01/05/19 00:00 Last Admin: 11/07/18 11:50 Dose: 5 units Ipratropium [place] (Atrovent Neb 0.5mg/2.5ml) 0.5 mg HHN Q6HRT [facility] Stop: 01/05/19 09:29 Isosorbide Dinitrate (Isordil) 20 mg PO BID [facility] Stop: 01/05/19 08:59 Last Admin: 11/07/18 09:24 Dose: 20 mg Lactobacillus Rhamnosus (Culturelle 15b) 1 each PO DAILY [facility] Stop: 01/05/19 08:59 Last Admin: 11/07/18 09:23 Dose: 1 each Miscellaneous (Probiotic Screen) 1 [facility] PRN PRN PRN Reason: PROTOCOL Stop: 01/05/19 16:32 Miscellaneous (Vancomycin Iv Per Pharmacy) 1 [facility] PRN [facility] Stop: 01/06/19 02:59 Senna (Senna) 8.6 mg PO HS [facility] Stop: 01/05/19 20:59 Last Admin: 11/06/18 20:27 Dose: 8.6 mg Tamsulosin HCl (Flomax) 0.4 mg PO QPM [facility] Stop: 01/05/19 16:59 Last Admin: 11/06/18 18:04 Dose: 0.4 mg Lab - Result Diagrams 11/09/18 04:35 11/09/18 04:35 Na stable @ 137 Kidney fnc better w/ CR of 2 replace K Bladder & renal US revealed distended bladder has increased urinary frequency w/ small amount of urine & bladder discomfort agreed for Metzger cath & 1.8L urine obtained CXR revealed congestion DC Amlodipine due to pretibial edema Nutritional Asmnt/Malnutr-PDOC - Dietary Evaluation Malnutrition Findings (Please click <Entered> for more info): Nutritional Asmnt/Malnutrition Start: 11/06/18 16: 24 Text: Status: Complete Freq: Protocol: Document 11/06/18 16:24 INDRA (Rec: 11/06/18 16:54 INDRA [email or web address]) Nutritional Asmnt/Malnutrition Patient General Information Nutritional Screening Moderate Risk Diagnosis cellulitis left hand Pertinent Medical Hx/Surgical Hx HTN, DM, CHF, dyslipidemia, PUD/GERD, s/p osteoyelitis, 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 Talked about benefits of [facility] diet but pt was not willing to discuss with dietitian. Current Diet Order/ Nutrition Support [facility] Pertinent Medications humalog, culturelle, piperacillin, nacl 0.9% Pertinent Labs 11/05 Na 133, CL 94, BUN 65, Cr 2.8, Glucose 301, POC 237 11/06 POC 201-223 Nutritional Hx/Data Height 1.73 m Height (Calculated Centimeters) 172.7 Current Weight (lbs) 98.43 kg Weight (Calculated Kilograms) 98.4 Weight (Calculated Grams) 86069.5 [place] Body Weight 148 Body Mass Index (BMI) 33.0 Weight Status Obese GI Symptoms GI Symptoms None Last BM not indicated Difficult in: None Skin Integrity/Comment: intact Estimated Nutritional Goals BEE in Kcals: Adj wt of IBW Calories/Kcals/Kg 23-27 Kcals Calculated [id number] Protein: Adj wt of IBW Protein g/k Protein Calculated 77 Fluid: ml 1771-2079ml (1ml/kcal) Nutritional Problem 1. Problem Problem altered nutrition related labs Etiology hyperglycemia Signs/Symptoms: glucose 302 Malnutrition Alert Is there a minimum of two criteria No selected? Query Text:Check all the applicable criteria. A minimum of two criteria are recommended for diagnosis of either severe or non-severe malnutrition. Malnutrition Related to Morbid Obesity Malnutrition related to morbid obesity No Intervention/Recommendation Comments 1. Continue with [facility] diet as ordered. MD to adjust insulin regimen for optimal glycemic control. 2. Monitor PO intake, wt, labs and skin integrity 3. F/U as moderate risk in 3-5 days Expected Outcomes/Goals Expected Outcomes/Goals 1. PO intake to meet at least 75% of nutritional needs. 2. Wt stability, skin to remain intact, labs to approach WNL.
--- NOTE | 2018-11-09 14:38 | Infectious Disease Prog Note ---
Infectious Disease Subjective - Review of Systems Service Date: 11/09/18 Subjective: There is no new change, no fever. Infectious Disease Objective - Results Result Diagrams: 11/09/18 04:35 11/09/18 04:35 Recent Labs: Laboratory Last Values WBC 12.6 Th/cmm (4.8-10.8) H 11/09/18 04:35 RBC 4.67 Mil/cmm (3.80-5.80) 11/09/18 04:35 Hgb 12.7 gm/dL (12-16) 11/09/18 04:35 Hct 38.9 % (41.0-60) L 11/09/18 04:35 MCV 83.3 fl (80-99) 11/09/18 04:35 MCH 27.3 pg (27.0-31.0) 11/09/18 04:35 MCHC Differential 32.8 pg (28.0-36.0) 11/09/18 04:35 RDW 13.7 % (11.5-20.0) 11/09/18 04:35 Plt Count 189 Th/cmm (150-400) 11/09/18 04:35 MPV 7.6 fl 11/09/18 04:35 Add Manual Diff YES 11/08/18 06:05 Neutrophils % 86.9 % (40.0-80.0) H 11/09/18 04:35 Band Neutrophils % 0 % (0-10) 11/05/18 20:30 Lymphocytes % 6.0 % (20.0-50.0) L 11/09/18 04:35 Monocytes % 5.3 % (2.0-10.0) 11/09/18 04:35 Eosinophils % 1.3 % (0.0-5.0) 11/09/18 04:35 Basophils % 0.5 % (0.0-2.0) 11/09/18 04:35 Neutrophils (Manual) 88 % (40-80) H 11/09/18 04:35 Lymphocytes 7 % (20-50) L 11/09/18 04:35 Monocytes 5 % (2-10) 11/09/18 04:35 Eosinophils 4 % (0-5) 11/08/18 06:05 Basophils 1 % (0-3) 11/07/18 05:50 Platelet Estimate ADEQUATE (NORMAL) 11/08/18 06:05 Eos Smear Source URINE 11/08/18 14:55 Eos Smear Total Cells FEW EOSINOPHILS SEEN (NONE SEEN) 11/08/18 14:55 Sodium 137 mEq/L (136-145) 11/09/18 04:35 Potassium 3.7 mEq/L (3.5-5.1) 11/09/18 04:35 Chloride 102 mEq/L (98-107) 11/09/18 04:35 Carbon Dioxide 26.3 mEq/L (21.0-31.0) 11/09/18 04:35 Anion Gap 12.4 (7.0-16.0) 11/09/18 04:35 BUN 56 mg/dL (7-25) H 11/09/18 04:35 Creatinine 2.0 mg/dL (0.7-1.3) H 11/09/18 04:35 Est GFR ( Amer) 43.1 ml/min (>90) 11/09/18 04:35 Est GFR (Non-Af Amer) 35.6 ml/min 11/09/18 04:35 BUN/Creatinine Ratio 28.0 11/09/18 04:35 Glucose 201 mg/dL (70-105) H 11/09/18 04:35 POC Glucose 213 MG/DL (70 - 105) H 11/09/18 11:41 Whole Bld Lactic Acid 0.55 mmol/L (0.60-1.99) L 11/07/18 05:50 Uric Acid 9.6 mg/dL (4.4-7.6) H 11/07/18 05:50 Calcium 8.5 mg/dL (8.6-10.3) L 11/09/18 04:35 Phosphorus 4.3 mg/dL (2.5-5.0) 11/07/18 05:50 Magnesium 2.3 mg/dL (1.9-2.7) 11/09/18 04:35 Total Bilirubin 0.3 mg/dL (0.3-1.0) 11/09/18 04:35 AST 13 U/L (13-39) 11/09/18 04:35 ALT 16 U/L (7-52) 11/09/18 04:35 Alkaline Phosphatase 92 U/L (34-104) 11/09/18 04:35 Total Protein 6.1 gm/dL (6.0-8.3) 11/09/18 04:35 Albumin 2.8 gm/dL (4.2-5.5) L 11/09/18 04:35 Globulin 3.3 gm/dL 11/09/18 04:35 Albumin/Globulin Ratio 0.9 (1.0-1.8) L 11/09/18 04:35 TSH 1.84 uIU/ml (0.34-5.60) 11/07/18 05:50 Urine Source CLEAN C 11/06/18 01:15 Urine Color YELLOW 11/06/18 01:15 Urine Clarity HAZY (CLEAR) 11/06/18 01:15 Urine pH 6.0 (4.6 - 8.0) 11/06/18 01:15 Ur Specific [place] 1.025 (1.005-1.030) 11/06/18 01:15 Urine Protein >=300 mg/dL (NEGATIVE) 11/06/18 01:15 Urine Glucose (UA) 250 mg/dL (NEGATIVE) H 11/06/18 01:15 Urine Ketones NEGATIVE mg/dL (NEGATIVE) 11/06/18 01:15 Urine Blood MODERATE (NEGATIVE) H 11/06/18 01:15 Urine Nitrate NEGATIVE (NEGATIVE) 11/06/18 01:15 Urine Bilirubin NEGATIVE (NEGATIVE) 11/06/18 01:15 Urine Urobilinogen 0.2 E.U./dL (0.2 - 1.0) 11/06/18 01:15 Ur Leukocyte Esterase NEGATIVE (NEGATIVE) 11/06/18 01:15 Urine RBC 5-10 /hpf (0-5) H 11/06/18 01:15 Urine WBC 2-5 /hpf (0-5) 11/06/18 01:15 Ur Epithelial Cells FEW /lpf (FEW) 11/06/18 01:15 Urine Bacteria FEW /hpf (NONE SEEN) 11/06/18 01:15 Hyaline Casts 0-2 /lpf (0-2) H 11/06/18 01:15 Ur Random Sodium 39 mmol/L 11/07/18 05:00 Urine Creatinine 110.0 mg/dl (39.0-259.0) 11/07/18 05:00 Microalb/Creat Ratio 2816.8 mg/g creat (0.0-30.0) H 11/08/18 14:55 - Physical Exam Vitals and I&O: Vital Signs Temp 99 F 11/09/18 11:48 Pulse 86 11/09/18 13:01 Resp 18 11/09/18 13:01 BP 183/87 11/09/18 11:48 Pulse Ox 93 11/09/18 13:01 Intake & Output 11/08/18 11/09/18 11/09/18 18:59 06:59 18:59 Intake Total 700 1100 700 Output Total 2200 1200 Balance -1500 1100 -500 Weight (lbs) 98.43 kg 98.43 kg Intake: Intake, IV Amount 100 1100 Piperacillin Sodium/ 100 100 Tazobact 2.25 gm In Sodium Chloride 0.9% 50 ml @ 100 mls/hr IV Q6H [facility] Rx#:[id number] Sodium Chloride 0.9% 1, 1000 000 ml @ 70 mls/hr IV . [id number] [facility] Rx#:[id number] Oral 600 700 Output: Urine 2200 1200 Stool 0 Other: # Voids 4 Weight Source Bedscale Bedscale Active Medications: Current Medications Acetaminophen (Tylenol) 650 mg PO Q4H PRN PRN Reason: MILD Pain or Fever >101 Stop: 01/05/19 08:50 Last Admin: 11/09/18 12:15 Dose: 650 mg Acetaminophen/Hydrocodone Bitart ([place] 5mg/325mg) 1 tab PO Q4H PRN PRN Reason: Pain (Severe) Stop: 01/05/19 09:04 Last Admin: 11/09/18 03:39 Dose: 1 tab Albuterol Sulfate (Albuterol 2.5mg/3ml Neb Ud) 2.5 mg HHN Q6HRT [facility] Stop: 01/05/19 09:29 Last Admin: 11/09/18 13:00 Dose: 2.5 mg Allopurinol (Zyloprim) 100 mg PO DAILY [facility] Stop: 01/06/19 10:59 Last Admin: 11/09/18 09:29 Dose: 100 mg Aspirin (Ecotrin) 81 mg PO DAILY [facility] Stop: 01/05/19 08:59 Last Admin: 11/09/18 09:29 Dose: 81 mg Budesonide (Pulmicort) 0.5 mg HHN BIDRT [facility] Stop: 01/05/19 08:59 Last Admin: 11/09/18 07:20 Dose: Not Given Carvedilol (Coreg) 25 mg PO BID [facility] Stop: 01/05/19 08:59 Last Admin: 11/09/18 11:37 Dose: 25 mg Dextrose (D50w) 50 ml IVP PRN PRN PRN Reason: Blood Glucose less than 70 Stop: 01/04/19 23:05 Dextrose (Glutose 40%) 18.75 gm PO PRN PRN PRN Reason: Blood Glucose less than 70 Stop: 01/04/19 23:05 Doxazosin Mesylate (Cardura) 2 mg PO DAILY [facility] Stop: 01/07/19 12:44 Last Admin: 11/09/18 09:24 Dose: Not Given Finasteride (Proscar) 5 mg PO DAILY [facility]; Protocol Stop: 01/05/19 08:59 Last Admin: 11/09/18 09:29 Dose: 5 mg Glucagon (Glucagen) 1 mg IM PRN PRN PRN Reason: Blood Glucose less than 70 Stop: 01/04/19 23:05 Piperacillin Sod/Tazobactam (Sod 2.25 gm/ Sodium Chloride) 50 mls @ 100 mls/hr IV Q6H [facility] Stop: 01/05/19 00:00 Last Admin: 11/09/18 12:15 Dose: 100 mls/hr Sodium Chloride (Nacl 0.9%) 1,000 mls @ 70 mls/hr IV .[id number] [facility] Stop: 01/04/19 22:48 Last Admin: 11/09/18 03:22 Dose: 70 mls/hr Vancomycin HCl 1 gm/ Sodium (Chloride) 250 mls @ 165 mls/hr IV Q24H [facility] Stop: 01/07/19 03:59 Last Admin: 11/09/18 03:19 Dose: 165 mls/hr Insulin Human Lispro (Humalog Insulin Sliding Scale) 0 units SUBQ Q6HR [facility]; Protocol Stop: 01/05/19 00:00 Last Admin: 11/09/18 11:43 Dose: 5 units Ipratropium [place] (Atrovent Neb 0.5mg/2.5ml) 0.5 mg HHN Q6HRT [facility] Stop: 01/05/19 09:29 Last Admin: 11/09/18 13:00 Dose: 0.5 mg Isosorbide Dinitrate (Isordil) 20 mg PO BID [facility] Stop: 01/05/19 08:59 Last Admin: 11/09/18 11:37 Dose: 20 mg Lactobacillus Rhamnosus (Culturelle 15b) 1 each PO DAILY [facility] Stop: 01/05/19 08:59 Last Admin: 11/09/18 09:29 Dose: 1 each Miscellaneous (Probiotic Screen) 1 ea PRN PRN PRN Reason: PROTOCOL Stop: 01/05/19 16:32 Miscellaneous (Vancomycin Iv Per Pharmacy) 1 [facility] PRN [facility] Stop: 01/06/19 02:59 Senna (Senna) 8.6 mg PO HS [facility] Stop: 01/05/19 20:59 Last Admin: 11/08/18 21:15 Dose: 8.6 mg General: no acute distress, well developed, well nourished HEENT: atraumatic, normocephalic, PERRLA Neck: supple, no thyromegaly Cardiovascular: S1S2, regular Lungs: clear to auscultation bilaterally, clear to percussion Abdomen: soft, no tender, no distended Extremities: other (decreased swelling and redness of the hand but there is pus coming out from left index finger.), no cyanosis, no clubbing, no edema Neurological: awake, alert Infectious Disease Assmt/Plan - Assessment Assessment: 1. Leukocytosis, multifactorial, most likely secondary to sepsis. 2. Left hand cellulitis. There is worsening of the left index finger and now draining pus. suspect underlying condition, r/o osteomyelitis. 3. Acute kidney injury with creatinine 2.8 with a baseline of 1.5-1.8 noticed in 05/2018. 4. Diabetes mellitus type 2. 5. Hypertension. 6. Obesity with a BMI 33. 7. History of congestive heart failure. 8. Dyslipidemia. - Plan Plan: MRI and continue vanco and Zosyn. 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 [facility] but pt was not willing to discuss with dietitian. Current Diet Order/ Nutrition Support [facility] Pertinent Medications humalog, culturelle, piperacillin, nacl 0.9% Pertinent Labs 11/05 Na 133, CL 94, BUN 65, Cr 2.8, Glucose 301, POC 237 11/06 POC 201-223 Nutritional Hx/Data Height 1.73 m Height (Calculated Centimeters) 172.7 Current Weight (lbs) 98.43 kg Weight (Calculated Kilograms) 98.4 Weight (Calculated Grams) 92297.5 [place] Body Weight 148 Body Mass Index (BMI) 33.0 Weight Status Obese GI Symptoms GI Symptoms None Last BM not indicated Difficult in: None Skin Integrity/Comment: intact Estimated Nutritional Goals BEE in Kcals: Adj wt of IBW Calories/Kcals/Kg 23-27 Kcals Calculated 4325-3641 Protein: Adj wt of IBW Protein g/k Protein Calculated 77 Fluid: ml 1771-2079ml (1ml/kcal) Nutritional Problem 1. Problem Problem altered nutrition related labs Etiology hyperglycemia Signs/Symptoms: glucose 302 Malnutrition Alert Is there a minimum of two criteria No selected? Query Text:Check all the applicable criteria. A minimum of two criteria are recommended for diagnosis of either severe or non-severe malnutrition. Malnutrition Related to Morbid Obesity Malnutrition related to morbid obesity No Intervention/Recommendation Comments 1. Continue with [facility] diet as ordered. MD to adjust insulin regimen for optimal glycemic control. 2. Monitor PO intake, wt, labs and skin integrity 3. F/U as moderate risk in 3-5 days Expected Outcomes/Goals Expected Outcomes/Goals 1. PO intake to meet at least 75% of nutritional needs. 2. Wt stability, skin to remain intact, labs to approach WNL.
[2018-11-10] MEDS: Ipratropium Neb 0.5 mg/2.5 mL UD HHN SCH ×3 (00:12→13:36)
[2018-11-10] MEDS: Albuterol Nebulizer 2.5mg/3mL HHN SCH ×3 (00:12→13:36)
[2018-11-10] MEDS: Hydrocodone/APAP 5mg/325mg Tab PO PRN ×2 (01:46→13:58)
[2018-11-10] MEDS: Sodium Chloride 0.9% 1,000 ML IV SCH (03:08)
[2018-11-10 03:46] LABS: HEMOGLOBIN 13.2 gm/dL (12-16); WHITE BLOOD COUNT 13.8 Th/cmm (4.8-10.8)
[2018-11-10 03:51] LABS: MEAN CELL VOLUME 83.1 fl (80-99); MEAN CORPUSCULAR HEMOGLOBIN 27.3 pg (27.0-31.0); MEAN CORPUSCULAR HGB CONC 32.9 pg (28.0-36.0); MEAN PLATELET VOLUME 7.3 fl; RED BLOOD COUNT 4.82 Mil/cmm (3.80-5.80); RED CELL DISTRIBUTION WIDTH 13.8 % (11.5-20.0)
[2018-11-10 03:57] LABS: PLATELET COUNT 237 Th/cmm (150-400)
[2018-11-10 04:05] LABS: ANION GAP 12.2 (7.0-16.0); CALCIUM SERUM 8.9 mg/dL (8.6-10.3); CARBON DIOXIDE 26.6 mEq/L (21.0-31.0); CREATININE - SERUM 1.7 mg/dL (0.7-1.3); GFR NON AFRICAN-AMERICAN 42.9 ml/min; POTASSIUM SERUM 3.8 mEq/L (3.5-5.1)
[2018-11-10] MEDS: INSULIN LISPRO SLIDING SCALE 100 UNITS/ML UNIT SUBQ SCH ×3 (06:26→17:29)
[2018-11-10] MEDS: Budesonide 0.5 Mg/2 mL Ud HHN SCH (07:14)
[2018-11-10 07:27] LABS: LYMPHOCYTE 7 % (20-50); MONOCYTE 8 % (2-10); NEUTROPHILS 85 % (40-80)
[2018-11-10] MEDS: Lactobacillus Rhamnosus GG 15 Billion CFU CAP.SPRINK PO SCH (10:11)
[2018-11-10] MEDS: Multivitamin w/ Minerals Tab PO SCH (10:12)
--- NOTE | 2018-11-10 12:45 | Diagnostic Imaging Report ---
Left hand (3 views) HISTORY: Swelling, cellulitis Narrowing of all DIP and PIP joint spaces. No discrete abnormal focal abnormalities. No fractures. No plain radiographic evidence of osteomyelitis. Vascular calcification noted. IMPRESSION: 1. No acute abnormalities. No plain radiographic evidence of osteomyelitis 2. Mild osteoarthritis 3. Vascular calcification
--- NOTE | 2018-11-10 13:00 | Discharge Summary ---
General Discharge Summary - Discharge Summary Date of Admission: 11/05/18 Admitting Diagnosis: Cellulitis, DM, HTN, Obesity, CKD Discharge Date: 11/10/18 Discharge Diagnosis: PNA, Cellulitis, JENY over CKD, DM, HTN, Obesity, BPH Laboratory Findings: Laboratory Results - last 24 hr 11/09/18 11/09/18 11/10/18 17:26 23:42 03:30 WBC RBC Hgb Hct MCV MCH MCHC Differential RDW Plt Count MPV Add Manual Diff Neutrophils (Manual) Lymphocytes Monocytes Sodium Potassium Chloride Carbon Dioxide Anion Gap BUN Creatinine Est GFR ( Amer) Est GFR (Non-Af Amer) BUN/Creatinine Ratio Glucose POC Glucose 254 H 259 H Calcium Vancomycin Trough 11.2 H 11/10/18 11/10/18 11/10/18 03:30 03:30 06:06 WBC 13.8 H RBC 4.82 Hgb 13.2 Hct 40.0 L MCV 83.1 MCH 27.3 MCHC Differential 32.9 RDW 13.8 Plt Count 237 D MPV 7.3 Add Manual Diff YES Neutrophils (Manual) 85 H Lymphocytes 7 L Monocytes 8 Sodium 138 Potassium 3.8 Chloride 103 Carbon Dioxide 26.6 Anion Gap 12.2 BUN 42 H Creatinine 1.7 H Est GFR ( Amer) 52.0 Est GFR (Non-Af Amer) 42.9 BUN/Creatinine Ratio 24.7 Glucose 213 H POC Glucose 181 H Calcium 8.9 Vancomycin Trough 11/10/18 11:32 WBC RBC Hgb Hct MCV MCH MCHC Differential RDW Plt Count MPV Add Manual Diff Neutrophils (Manual) Lymphocytes Monocytes Sodium Potassium Chloride Carbon Dioxide Anion Gap BUN Creatinine Est GFR ( Amer) Est GFR (Non-Af Amer) BUN/Creatinine Ratio Glucose POC Glucose 223 H Calcium Vancomycin Trough Hospital Course: Patient responded to treatment, he improved, Cellulitis improved, Creatonine Improved, Catheter win placed. Treatment: Patient was started in IV NS, IV AB, Insulin sliding scale, BPH treated, continue with SNF meds, Catheter win placed. Condition at Discharge: Stable Disposition: Discharge/Transfered to SNF Home Medications: Home Medication Medication Instructions Recorded Type Carvedilol [Coreg] 25 mg PO BID tab 06/08/18 Rx Finasteride [Proscar*] 5 mg PO DAILY tab 06/08/18 Rx Furosemide [Lasix] 40 mg PO DAILY tab 06/08/18 Rx Hydrochlorothiazide [Hctz*] 25 mg PO DAILY tab 06/08/18 Rx Insulin Aspart Sliding Scale See Protocol SUBQ ACHS unit 06/08/18 Rx [NovoLOG INSULIN SLIDING SCALE] Isosorbide Dinitrate [Isordil] 20 mg PO BID tab 06/08/18 Rx Multivitamin w/ Minerals 1 tab PO DAILY tab 06/08/18 Rx [Theragran M] amLODIPine Besylate [Norvasc] 5 mg PO DAILY tab 06/08/18 Rx cloNIDine HCl [Catapres] 0.1 mg PO Q8HR PRN tab 06/08/18 Rx Acetaminophen [Tylenol] 650 mg PO Q4H PRN 11/05/18 History Aspirin EC [Ecotrin] 81 mg PO DAILY 11/05/18 History Budesonide/Formoterol Fumarate 2 puff IH BID 11/05/18 History [Symbicort 160-4.5 Mcg Inhaler] Lactobacillus Rhamnosus GG 15B 1 each PO BID 11/05/18 History [Culturelle 15B] Sennosides A and B [Senna] 8.6 mg PO HS 11/05/18 History Tamsulosin [Flomax] 0.4 mg PO QPM 11/05/18 History Tiotropium [place] [Spiriva] 18 mcg INH DAILY 11/05/18 History Acetaminophen [Tylenol] 650 mg PO Q4H PRN tab 11/10/18 Rx Inpatient Medications: Current Medications Acetaminophen (Tylenol) 650 mg PO Q4H PRN PRN Reason: MILD Pain or Fever >101 Stop: 01/05/19 08:50 Last Admin: 11/09/18 12:15 Dose: 650 mg Acetaminophen/Hydrocodone Bitart ([place] 5mg/325mg) 1 tab PO Q4H PRN PRN Reason: Pain (Severe) Stop: 01/05/19 09:04 Last Admin: 11/10/18 01:46 Dose: 1 tab Albuterol Sulfate (Albuterol 2.5mg/3ml Neb Ud) 2.5 mg HHN Q6HRT [facility] Stop: 01/05/19 09:29 Last Admin: 11/10/18 07:14 Dose: 2.5 mg Allopurinol (Zyloprim) 100 mg PO DAILY [facility] Stop: 01/06/19 10:59 Last Admin: 11/10/18 10:12 Dose: 100 mg Aspirin (Ecotrin) 81 mg PO DAILY [facility] Stop: 01/05/19 08:59 Last Admin: 11/10/18 10:12 Dose: 81 mg Budesonide (Pulmicort) 0.5 mg HHN BIDRT [facility] Stop: 01/05/19 08:59 Last Admin: 11/10/18 07:14 Dose: 0.5 mg Carvedilol (Coreg) 25 mg PO BID [facility] Stop: 01/05/19 08:59 Last Admin: 11/10/18 10:11 Dose: 25 mg Dextrose (D50w) 50 ml IVP PRN PRN PRN Reason: Blood Glucose less than 70 Stop: 01/04/19 23:05 Dextrose (Glutose 40%) 18.75 gm PO PRN PRN PRN Reason: Blood Glucose less than 70 Stop: 01/04/19 23:05 Doxazosin Mesylate (Cardura) 2 mg PO DAILY [facility] Stop: 01/07/19 12:44 Last Admin: 11/10/18 10:12 Dose: 2 mg Finasteride (Proscar) 5 mg PO DAILY [facility]; Protocol Stop: 01/05/19 08:59 Last Admin: 11/10/18 10:11 Dose: 5 mg Glucagon (Glucagen) 1 mg IM PRN PRN PRN Reason: Blood Glucose less than 70 Stop: 01/04/19 23:05 Piperacillin Sod/Tazobactam (Sod 2.25 gm/ Sodium Chloride) 50 mls @ 100 mls/hr IV Q6H [facility] Stop: 01/05/19 00:00 Last Admin: 11/10/18 06:02 Dose: 100 mls/hr Sodium Chloride (Nacl 0.9%) 1,000 mls @ 70 mls/hr IV .[id number] [facility] Stop: 01/04/19 22:48 Last Admin: 11/10/18 03:08 Dose: 70 mls/hr Vancomycin HCl 1.5 gm/ Sodium (Chloride) 500 mls @ 250 mls/hr IV Q24H [facility] Stop: 01/10/19 08:59 Insulin Human Lispro (Humalog Insulin Sliding Scale) 0 units SUBQ Q6HR [facility]; Protocol Stop: 01/05/19 00:00 Last Admin: 11/10/18 11:42 Dose: 5 units Ipratropium [place] (Atrovent Neb 0.5mg/2.5ml) 0.5 mg HHN Q6HRT [facility] Stop: 01/05/19 09:29 Last Admin: 11/10/18 07:13 Dose: 0.5 mg Isosorbide Dinitrate (Isordil) 20 mg PO BID [facility] Stop: 01/05/19 08:59 Last Admin: 11/10/18 10:11 Dose: 20 mg Lactobacillus Rhamnosus (Culturelle 15b) 1 each PO DAILY [facility] Stop: 01/05/19 08:59 Last Admin: 11/10/18 10:11 Dose: 1 each Miscellaneous (Probiotic Screen) 1 [facility] PRN PRN PRN Reason: PROTOCOL Stop: 01/05/19 16:32 Miscellaneous (Vancomycin Iv Per Pharmacy) 1 [facility] PRN [facility] Stop: 01/06/19 02:59 Senna (Senna) 8.6 mg PO HS [facility] Stop: 01/05/19 20:59 Last Admin: 11/09/18 20:51 Dose: 8.6 mg Activity: As Tolerated Discharge Diet: 2 Gram Sodium Consults and Follow-Up: Ken Wells [Primary Care Provider] - Consulting Speciality: Renal Instructions: Cellulitis
--- NOTE | 2018-11-10 19:32 | General Progress Note ---
Subjective - Review of Systems Service Date: 11/10/18 Subjective: alert, less irritated Objective - Results Result Diagrams: 11/10/18 03:30 11/10/18 03:30 Recent Labs: Laboratory Last Values WBC 13.8 Th/cmm (4.8-10.8) H 11/10/18 03:30 RBC 4.82 Mil/cmm (3.80-5.80) 11/10/18 03:30 Hgb 13.2 gm/dL (12-16) 11/10/18 03:30 Hct 40.0 % (41.0-60) L 11/10/18 03:30 MCV 83.1 fl (80-99) 11/10/18 03:30 MCH 27.3 pg (27.0-31.0) 11/10/18 03:30 MCHC Differential 32.9 pg (28.0-36.0) 11/10/18 03:30 RDW 13.8 % (11.5-20.0) 11/10/18 03:30 Plt Count 237 Th/cmm (150-400) D 11/10/18 03:30 MPV 7.3 fl 11/10/18 03:30 Add Manual Diff YES 11/10/18 03:30 Neutrophils % 86.9 % (40.0-80.0) H 11/09/18 04:35 Band Neutrophils % 0 % (0-10) 11/05/18 20:30 Lymphocytes % 6.0 % (20.0-50.0) L 11/09/18 04:35 Monocytes % 5.3 % (2.0-10.0) 11/09/18 04:35 Eosinophils % 1.3 % (0.0-5.0) 11/09/18 04:35 Basophils % 0.5 % (0.0-2.0) 11/09/18 04:35 Neutrophils (Manual) 85 % (40-80) H 11/10/18 03:30 Lymphocytes 7 % (20-50) L 11/10/18 03:30 Monocytes 8 % (2-10) 11/10/18 03:30 Eosinophils 4 % (0-5) 11/08/18 06:05 Basophils 1 % (0-3) 11/07/18 05:50 Platelet Estimate ADEQUATE (NORMAL) 11/08/18 06:05 Eos Smear Source URINE 11/08/18 14:55 Eos Smear Total Cells FEW EOSINOPHILS SEEN (NONE SEEN) 11/08/18 14:55 Sodium 138 mEq/L (136-145) 11/10/18 03:30 Potassium 3.8 mEq/L (3.5-5.1) 11/10/18 03:30 Chloride 103 mEq/L (98-107) 11/10/18 03:30 Carbon Dioxide 26.6 mEq/L (21.0-31.0) 11/10/18 03:30 Anion Gap 12.2 (7.0-16.0) 11/10/18 03:30 BUN 42 mg/dL (7-25) H 11/10/18 03:30 Creatinine 1.7 mg/dL (0.7-1.3) H 11/10/18 03:30 Est GFR ( Amer) 52.0 ml/min (>90) 11/10/18 03:30 Est GFR (Non-Af Amer) 42.9 ml/min 11/10/18 03:30 BUN/Creatinine Ratio 24.7 11/10/18 03:30 Glucose 213 mg/dL (70-105) H 11/10/18 03:30 POC Glucose 205 MG/DL (70 - 105) H 11/10/18 16:37 Whole Bld Lactic Acid 0.55 mmol/L (0.60-1.99) L 11/07/18 05:50 Uric Acid 9.6 mg/dL (4.4-7.6) H 11/07/18 05:50 Calcium 8.9 mg/dL (8.6-10.3) 11/10/18 03:30 Phosphorus 4.3 mg/dL (2.5-5.0) 11/07/18 05:50 Magnesium 2.3 mg/dL (1.9-2.7) 11/09/18 04:35 Total Bilirubin 0.3 mg/dL (0.3-1.0) 11/09/18 04:35 AST 13 U/L (13-39) 11/09/18 04:35 ALT 16 U/L (7-52) 11/09/18 04:35 Alkaline Phosphatase 92 U/L (34-104) 11/09/18 04:35 Total Protein 6.1 gm/dL (6.0-8.3) 11/09/18 04:35 Albumin 2.8 gm/dL (4.2-5.5) L 11/09/18 04:35 Globulin 3.3 gm/dL 11/09/18 04:35 Albumin/Globulin Ratio 0.9 (1.0-1.8) L 11/09/18 04:35 TSH 1.84 uIU/ml (0.34-5.60) 11/07/18 05:50 Urine Source CLEAN C 11/06/18 01:15 Urine Color YELLOW 11/06/18 01:15 Urine Clarity HAZY (CLEAR) 11/06/18 01:15 Urine pH 6.0 (4.6 - 8.0) 11/06/18 01:15 Ur Specific [place] 1.025 (1.005-1.030) 11/06/18 01:15 Urine Protein >=300 mg/dL (NEGATIVE) 11/06/18 01:15 Urine Glucose (UA) 250 mg/dL (NEGATIVE) H 11/06/18 01:15 Urine Ketones NEGATIVE mg/dL (NEGATIVE) 11/06/18 01:15 Urine Blood MODERATE (NEGATIVE) H 11/06/18 01:15 Urine Nitrate NEGATIVE (NEGATIVE) 11/06/18 01:15 Urine Bilirubin NEGATIVE (NEGATIVE) 11/06/18 01:15 Urine Urobilinogen 0.2 E.U./dL (0.2 - 1.0) 11/06/18 01:15 Ur Leukocyte Esterase NEGATIVE (NEGATIVE) 11/06/18 01:15 Urine RBC 5-10 /hpf (0-5) H 11/06/18 01:15 Urine WBC 2-5 /hpf (0-5) 11/06/18 01:15 Ur Epithelial Cells FEW /lpf (FEW) 11/06/18 01:15 Urine Bacteria FEW /hpf (NONE SEEN) 11/06/18 01:15 Hyaline Casts 0-2 /lpf (0-2) H 11/06/18 01:15 Ur Random Sodium 39 mmol/L 11/07/18 05:00 Urine Creatinine 110.0 mg/dl (39.0-259.0) 11/07/18 05:00 Microalb/Creat Ratio 2816.8 mg/g creat (0.0-30.0) H 11/08/18 14:55 Vancomycin Trough 11.2 ug/mL (5-10) H 11/10/18 03:30 - Physical Exam Vitals and I&O: Vital Signs Temp 98.1 F 11/10/18 15:41 Pulse 87 11/10/18 16:29 Resp 20 11/10/18 15:41 BP 159/84 11/10/18 16:29 Pulse Ox 90 11/10/18 15:41 Intake & Output 11/10/18 11/10/18 11/11/18 06:59 18:59 06:59 Intake Total 50 1950 Output Total 2000 Balance 50 -50 Weight (lbs) 98.43 kg Intake: Intake, IV Amount 50 150 Piperacillin Sodium/ 50 150 Tazobact 2.25 gm In Sodium Chloride 0.9% 50 ml @ 100 mls/hr IV Q6H [facility] Rx#:[id number] Oral 1800 Output: Urine 2000 Other: # Bowel Movements 1 Weight Source Bedscale General: Alert, No acute distress HEENT: Atraumatic, PERRLA, Mucous membr. moist/pink Neck: Supple, +2 carotid pulse wo bruit Cardiovascular: Regular rate, Normal S1, Normal S2 Lungs: Other (rhonchi, decreased BS) Abdomen: Bowel sounds, Soft, Distended Extremities: Edema, Other (Redness and edema of left hand) Neurological: Sensation intact Skin: no Rash Psych/Mental Status: Mental status NL Assessment/Plan - Assessment Assessment: JENY on CKD Left Hand Cellulitis T2DM w/ CKD Morbid Obesity Ess Htn w/ CKD S/P Amputation B/L Ist Digits Distended Urinary Bladder 2/2 Urinary Retention Possible BPH Post Obstructive diuresis - Plan Plan: Lab - Result Diagrams 11/07/18 05:50 11/07/18 05:50 Current Medications Acetaminophen (Tylenol) 650 mg PO Q4H PRN PRN Reason: MILD Pain or Fever >101 Stop: 01/05/19 08:50 Acetaminophen/Hydrocodone Bitart ([place] 5mg/325mg) 1 tab PO Q4H PRN PRN Reason: Pain (Severe) Stop: 01/05/19 09:04 Last Admin: 11/07/18 09:24 Dose: 1 tab Albuterol Sulfate (Albuterol 2.5mg/3ml Neb Ud) 2.5 mg HHN Q6HRT [facility] Stop: 01/05/19 09:29 Last Admin: 11/07/18 08:53 Dose: 2.5 mg Allopurinol (Zyloprim) 100 mg PO DAILY [facility] Stop: 01/06/19 10:59 Last Admin: 11/07/18 10:42 Dose: 100 mg Amlodipine Besylate (Norvasc) 5 mg PO DAILY [facility] Stop: 01/05/19 08:59 Last Admin: 11/07/18 09:24 Dose: 5 mg Aspirin (Ecotrin) 81 mg PO DAILY [facility] Stop: 01/05/19 08:59 Last Admin: 11/07/18 09:24 Dose: 81 mg Budesonide (Pulmicort) 0.5 mg HHN BIDRT [facility] Stop: 01/05/19 08:59 Last Admin: 11/07/18 08:53 Dose: 0.5 mg Carvedilol (Coreg) 25 mg PO BID [facility] Stop: 01/05/19 08:59 Last Admin: 11/07/18 09:23 Dose: 25 mg Dextrose (D50w) 50 ml IVP PRN PRN PRN Reason: Blood Glucose less than 70 Stop: 01/04/19 23:05 Dextrose (Glutose 40%) 18.75 gm PO PRN PRN PRN Reason: Blood Glucose less than 70 Stop: 01/04/19 23:05 Finasteride (Proscar) 5 mg PO DAILY [facility]; Protocol Stop: 01/05/19 08:59 Last Admin: 11/07/18 09:23 Dose: 5 mg Glucagon (Glucagen) 1 mg IM PRN PRN PRN Reason: Blood Glucose less than 70 Stop: 01/04/19 23:05 Piperacillin Sod/Tazobactam (Sod 2.25 gm/ Sodium Chloride) 50 mls @ 100 mls/hr IV Q6H [facility] Stop: 01/05/19 00:00 Last Admin: 11/07/18 11:28 Dose: 100 mls/hr Sodium Chloride (Nacl 0.9%) 1,000 mls @ 70 mls/hr IV .[id number] [facility] Stop: 01/04/19 22:48 Last Admin: 11/07/18 00:07 Dose: 70 mls/hr Vancomycin HCl 1 gm/ Sodium (Chloride) 250 mls @ 165 mls/hr IV Q24H [facility] Stop: 01/07/19 03:59 Insulin Human Lispro (Humalog Insulin Sliding Scale) 0 units SUBQ Q6HR [facility]; Protocol Stop: 01/05/19 00:00 Last Admin: 11/07/18 11:50 Dose: 5 units Ipratropium [place] (Atrovent Neb 0.5mg/2.5ml) 0.5 mg HHN Q6HRT [facility] Stop: 01/05/19 09:29 Isosorbide Dinitrate (Isordil) 20 mg PO BID [facility] Stop: 01/05/19 08:59 Last Admin: 11/07/18 09:24 Dose: 20 mg Lactobacillus Rhamnosus (Culturelle 15b) 1 each PO DAILY [facility] Stop: 01/05/19 08:59 Last Admin: 11/07/18 09:23 Dose: 1 each Miscellaneous (Probiotic Screen) 1 ea PRN PRN PRN Reason: PROTOCOL Stop: 01/05/19 16:32 Miscellaneous (Vancomycin Iv Per Pharmacy) 1 ea PRN [facility] Stop: 01/06/19 02:59 Senna (Senna) 8.6 mg PO HS [facility] Stop: 01/05/19 20:59 Last Admin: 11/06/18 20:27 Dose: 8.6 mg Tamsulosin HCl (Flomax) 0.4 mg PO QPM [facility] Stop: 01/05/19 16:59 Last Admin: 11/06/18 18:04 Dose: 0.4 mg Lab - Result Diagrams 11/10/18 03:30 11/10/18 03:30 Na stable @ 138 Kidney fnc better w/BUN/CR of 42/1.7 replace K Bladder & renal US revealed distended bladder has increased urinary frequency w/ small amount of urine & bladder discomfort agreed for Metzger cath & 1.8L urine obtained CXR revealed congestion DC Amlodipine due to pretibial edema will need urology eval as outpt. Nutritional Asmnt/Malnutr-PDOC - Dietary Evaluation Malnutrition Findings (Please click <Entered> for more info): Nutritional Asmnt/Malnutrition Start: 11/06/18 16: 24 Text: Status: Complete Freq: Protocol: Document 11/06/18 16:24 LCHENG (Rec: 11/06/18 16:54 [email or web address]) Nutritional Asmnt/Malnutrition Patient General Information Nutritional Screening Moderate Risk Diagnosis cellulitis left hand Pertinent Medical Hx/Surgical Hx HTN, DM, CHF, dyslipidemia, PUD/GERD, s/p osteoyelitis, 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 Talked about benefits of CCHO diet but pt was not willing to discuss with dietitian. Current Diet Order/ Nutrition Support CCHO Pertinent Medications humalog, culturelle, piperacillin, nacl 0.9% Pertinent Labs 11/05 Na 133, CL 94, BUN 65, Cr 2.8, Glucose 301, POC 237 11/06 POC 201-223 Nutritional Hx/Data Height 1.73 m Height (Calculated Centimeters) 172.7 Current Weight (lbs) 98.43 kg Weight (Calculated Kilograms) 98.4 Weight (Calculated Grams) 45369.5 [place] Body Weight 148 Body Mass Index (BMI) 33.0 Weight Status Obese GI Symptoms GI Symptoms None Last BM not indicated Difficult in: None Skin Integrity/Comment: intact Estimated Nutritional Goals BEE in Kcals: Adj wt of IBW Calories/Kcals/Kg 23-27 Kcals Calculated 0410-8517 Protein: Adj wt of IBW Protein g/k Protein Calculated 77 Fluid: ml 1771-2079ml (1ml/kcal) Nutritional Problem 1. Problem Problem altered nutrition related labs Etiology hyperglycemia Signs/Symptoms: glucose 302 Malnutrition Alert Is there a minimum of two criteria No selected? Query Text:Check all the applicable criteria. A minimum of two criteria are recommended for diagnosis of either severe or non-severe malnutrition. Malnutrition Related to Morbid Obesity Malnutrition related to morbid obesity No Intervention/Recommendation Comments 1. Continue with CCHO diet as ordered. MD to adjust insulin regimen for optimal glycemic control. 2. Monitor PO intake, wt, labs and skin integrity 3. F/U as moderate risk in 3-5 days Expected Outcomes/Goals Expected Outcomes/Goals 1. PO intake to meet at least 75% of nutritional needs. 2. Wt stability, skin to remain intact, labs to approach WNL.
[2018-11-11] MEDS ORDERED: Vancomycin HCl 1.5 GM in Sodium Chloride 0.9% 500 ML IV SCH (09:00)
== END 2018-11-10 18:35 | DRG 682 ==
LOC: ER 19:55 → MSI 22:50
PROVIDERS: ADMIT General Practice; ATTEND General Practice
DX: N17.0 Acute kidney failure with tubular necrosis (principal); J18.9 Pneumonia, unspecified organism; L03.114 Cellulitis of left upper limb; I13.0 Hypertensive heart and chronic kidney disease with heart failure and stage 1 through stage 4 chronic kidney disease, or unspecified chronic kidney disease; J44.0 Chronic obstructive pulmonary disease with (acute) lower respiratory infection; N18.4 Chronic kidney disease, stage 4 (severe); E66.9 Obesity, unspecified; I50.9 Heart failure, unspecified; E78.5 Hyperlipidemia, unspecified; K21.9 Gastro-esophageal reflux disease without esophagitis; E11.65 Type 2 diabetes mellitus with hyperglycemia; E11.22 Type 2 diabetes mellitus with diabetic chronic kidney disease; N40.0 Benign prostatic hyperplasia without lower urinary tract symptoms; E66.01 Morbid (severe) obesity due to excess calories; E11.21 Type 2 diabetes mellitus with diabetic nephropathy; Z83.3 Family history of diabetes mellitus; Z79.4 Long term (current) use of insulin; Z68.33 Body mass index [BMI] 33.0-33.9, adult; Z89.412 Acquired absence of left great toe
CPT/HCPCS: 36415-UA; 71045-TC; 73130-TC-LT; 76770-TC; 76857-TC; 80048-TC; 80053-TC; 80202-TC; 81001-TC; 81015-TC; 82043-90; 82570-TC; 82948-90; 83036-90; 83605; 83735-TC; 84100-TC; 84300-TC; 84443-TC; 84550-TC; 85007-TC; 85025-TC; 87070-90; 87086-90; 90779; 94640; 94760; J1170; J2543; J3370; J7030; J7040; J7613; Z7610